=== PATIENT | male | born 1935 | race Caucasian/White ===

== ENCOUNTER 2020-06-14 16:30 | Inpatient (IN) | payer MEDICARE, OTHER, SELFPAY ==
[2020-06-14 16:45] VITALS: BMI 28.3
--- NOTE | 2020-06-14 17:02 | PC.NURSE ---
Patient admitted to skilled swing bed for therapy, oriented to room, pacemaker monitor hooked up and personal cell phone in reach, call light in reach and instructed on how to use, also to not get up alone, alberto titus on
[2020-06-14 17:16] VITALS: BP 174/71; PULSE 64; RESP 18; TEMP 36.4; O2SAT 95
[2020-06-14 17:42] VITALS: BP 174/71; PULSE 64; RESP 18; TEMP 36.4; O2SAT 95; BMI 28.3
[2020-06-14 21:27] LABS: Glucose Point of Care 172 (65-105)
[2020-06-14] MEDS: ATORVASTATIN 40 MG TABLET PO (22:30)
[2020-06-14] MEDS: FINASTERIDE 5 MG TABLET PO (22:30)
[2020-06-14] MEDS: INSULIN GLARGINE (*BKC) 100 UNITS/ML 15 UNITS SUB-Q (22:30)
[2020-06-15] VITALS: BP 153/55; PULSE 59; RESP 20; TEMP 36.6; O2SAT 96
[2020-06-15] MEDS: LEVOTHYROXINE SODIUM 100 MCG TABLET PO (05:56)
[2020-06-15] MEDS: LEVOTHYROXINE SODIUM 75 MCG TABLET PO (05:56)
[2020-06-15 07:47] LABS: Glucose Point of Care 99 (65-105)
[2020-06-15 08:00] VITALS: BP 95/51; PULSE 63; RESP 18; TEMP 36.8; O2SAT 98
--- NOTE | 2020-06-15 08:40 | PC.NURSE ---
First assessment of 06/15: integumentary, respiratory, cardiovascular redone. wrong patient
[2020-06-15] MEDS: APIXABAN 2.5 MG TABLET PO ×2 (08:59→16:48)
[2020-06-15] MEDS: MIDODRINE HCL 2.5 MG TABLET 5 MG PO ×3 (08:59→16:48)
[2020-06-15] MEDS: ASPIRIN 81 MG ENTERIC TABLET PO (08:59)
[2020-06-15] MEDS: CALCIUM CARBONATE (OSCAL) 500 MG TABLET PO (08:59)
[2020-06-15] MEDS: CITALOPRAM HYDROBROMIDE 20 MG TABLET PO (08:59)
--- NOTE | 2020-06-15 09:38 | WPDREHABHP ---
H&P: HPI History of Present Illness Date/Time: 06/15/20 09:38 Cheif Complaint: Physical debility Narrative: Carlos Zhou is a 84 year old male with a PMH of CAD, carotid stenosis, CKD, DMII, previous DVT, HLD, HTN, PUD, sleep apnea w/ cpap that was admitted to swing bed for rehab after a pacemaker placement. 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 Today he is doing well. He reports significant fatigue but no CP, SOB, dizziness, syncope, N/V or GI issues. PSH: CABG, cartotid endarectomy, rotator cuff repair, thyroidectomy, TKA Allergies: Penicillin-rash Review of Systems Constitutional Constitutional: Denies body ache(s), Denies chills and Denies fever(s) Eyes Eyes: Reports no additional eye complaints ENT Reports system reviewed and no additional complaints, except as documented Cardiovascular Cardiovascular: Denies chest pain with activity, Denies irregular heart rhythm, Denies palpitations and Denies dyspnea Respiratory Respiratory: Denies dyspnea Gastrointestinal Gastrointestinal: Reports no additional gastrointestinal complaints Genitourinary Genitourinary: Reports no additional male genitourinary complaints Musculoskeletal Musculoskeletal: Reports no additional musculoskeletal complaints Integumentary/Breasts Skin/Breast: Reports system reviewed and no additional complaints, except as docu Neurologic Reports system reviewed and no additional complaints, except as documented Psychiatric Psychiatric: Reports no additional psychiatric complaints Endocrine Endocrine: Reports no additional endocrine complaints and Denies palpitations Hematologic/Lymphatic Hematologic/Lymphatic: Reports no additional hematologic/lymphatic complaints Allergic/Immunologic Allergic/Immunologic: Reports no additional allergic/immunologic complaints [facility] Social History Social History Smoking status: Former smoker Alcohol intake: never Substance use: never Gender identity (if verbalized by the patient): Male Spiritual care concerns: No Meds Home Medications and Allergies Home Medications Medication Instructions Recorded Confirmed Type apixaban 2.5 mg PO BID 06/14/20 06/14/20 History aspirin [Adult Aspirin EC Low 81 mg PO DAILY 06/14/20 06/14/20 History Strength] atorvastatin 40 mg PO HS 06/14/20 06/14/20 History calcium carbonate [Oyster Shell 500 mg PO DAILY 06/14/20 06/14/20 History Calcium 500] citalopram 20 mg PO DAILY 06/14/20 06/14/20 History finasteride [Proscar] 5 mg PO HS 06/14/20 06/14/20 History insulin glargine [Lantus U-100 15 unit SUBCUT HS 06/14/20 06/14/20 History Insulin] levothyroxine [Levothroid] 175 mcg PO DAILY 06/14/20 06/14/20 History midodrine 5 mg PO TID 06/14/20 06/14/20 History torsemide 10 mg PO DAILY PRN 06/14/20 06/14/20 History Allergies Allergy/AdvReac Type Severity Reaction Status Date / Time Penicillins Allergy Rash Verified 06/14/20 17:04 Vital Signs Vital Signs - 24 hr 06/14/20 17:16 06/14/20 17:42 06/15/20 00:00 Temperature 97.6 F 97.6 F 98 F Pulse Rate 64 64 59 L Respiratory Rate 18 18 20 Blood Pressure 174/71 H 174/71 H 153/55 H Pulse Oximetry 95 95 96 06/15/20 08:00 Temperature 98.2 F Pulse Rate 63 Respiratory Rate 18 Blood Pressure 95/51 L Pulse Oximetry 98 Exam Const General: cooperative, comfortable, no acute distress, well developed, alert, awake and Physically active; No confusion Orientation/consciousness: oriented to person, oriented to place, oriented to time and No confusion HENAR Head: normal to inspection, normocephalic and atraumatic Ears: hearing grossly normal bilaterally and external ears normal General nose exam: Normal external nose present Eyes General: appearance normal, both eyes and all related structures Periorbital: periorbital findings normal Sclera: sclerae normal Pupils: Equal, round and reactive pupils present Resp Effort & Inspec
[2020-06-15 10:33] LABS: Thyroid Stimulating Hormone 1.57 uIU/mL (0.36-3.74)
[2020-06-15 11:28] LABS: Glucose Point of Care 108 (65-105)
--- NOTE | 2020-06-15 14:28 | P.PN_ITS ---
Progress Note: A&P Assessment and Plan (1) Pacemaker: Code(s): Z95.0 - Presence of cardiac pacemaker Status: Acute Assessment and Plan: * Dual-chamber pacemaker * Pacemaker placed due to second-degree AV block and sinus pause * Patient followed by flight paramedic * Patient is to follow-up with her flight paramedic Dr. Otto in 2 weeks after discharge from rehab * Patient has a remote home monitoring check on Monday June 22, 2020 at 8:45 AM * Continue Xarelto 2.5 mg * Placement on * cosyntropin stimulation test results with adequate response at osh (2) Thyroid nodule: Code(s): E04.1 - Nontoxic single thyroid nodule Status: Acute Assessment and Plan: * Continue Synthroid * TSH normal at outside hospital (3) Sleep apnea with use of continuous positive airway pressure (CPAP): Code(s): G47.30 - Sleep apnea, unspecified Status: Acute (4) PVD (peripheral vascular disease): Code(s): I73.9 - Peripheral vascular disease, unspecified Status: Acute (5) HLD (hyperlipidemia): Code(s): E78.5 - Hyperlipidemia, unspecified Status: Acute Assessment and Plan: * Continue atorvastatin 40 mg (6) HTN (hypertension): Code(s): I10 - Essential (primary) hypertension Status: Acute Assessment and Plan: * overall blood pressure reading on the lower side. * Losartan 100 mg and amlodipine 10 mg wawas discontinued at previous hospital * Midodrine 5 mg every 8 hours for 30 days started last given June 14, 2000 (7) CAD (coronary artery disease): Code(s): I25.10 - Atherosclerotic heart disease of [place] coronary artery without angina pectoris Status: Acute Assessment and Plan: * Most recent cardiac testing was January 2019 * Echo indicated normal LVEF. LVEF 55 to 60% * Stress nuclear study demonstrates normal perfusion imaging EF 69% * Recent normal LVEF, 61% now concentric LVH. Dilated right ventricle and normal function * History of CABG back in 2014 (8) Kidney disease: Code(s): N28.9 - Disorder of kidney and ureter, unspecified Status: Acute Assessment and Plan: * Patient last creatinine at outside hospital was 1.58 , BUN 22 GFR 47 * Baseline creatinine 1.7-1.9 * We will renal dose all medication * Labs ordered for the a.m. (9) Diabetes mellitus: Code(s): E11.9 - Type 2 diabetes mellitus without complications Status: Acute Assessment and Plan: * Patient will start a sliding scale also Lantus 15 units mg at bedtime * Blood sugar 103 * Continue Accu-Chek with sliding scale and hypoglycemic protocol * Continue diabetic diet * Will adjust as needed (10) BPH (benign prostatic hyperplasia): Code(s): N40.0 - Benign prostatic hyperplasia without lower urinary tract symptoms Status: Acute Assessment and Plan: * Continue Proscar * Flomax was discontinued at previous hospital (11) Orthostatic hypertension: Code(s): I10 - Essential (primary) hypertension Status: Acute Assessment and Plan: * Patient started on midodrine for 30 days * Continue compression start Review of Systems Review of Systems: All systems reviewed & are unremarkable except as noted in HPI and below (10 point system review) Exam Narrative: Exam Narrative: GENERAL: This is a well-nourished, well-developed patient, in no apparent distress. HEAD: normocephalic, atraumatic. EYES: PERRL. Sclera clear/white. Vision is grossly intact. EARS: External ears no
--- NOTE | 2020-06-15 14:28 | WPDPN ---
Progress Note: A&P Assessment and Plan (1) Pacemaker: Code(s): Z95.0 - Presence of cardiac pacemaker Status: Acute Assessment and Plan: Dual-chamber pacemaker Pacemaker placed due to second-degree AV block and sinus pause Patient followed by hand clerical verifier Patient is to follow-up with her hand clerical verifier Dr. Otto in 2 weeks after discharge from rehab Patient has a remote home monitoring check on Monday June 22, 2020 at 8:45 AM Continue Xarelto 2.5 mg Placement on cosyntropin stimulation test results with adequate response at osh (2) Thyroid nodule: Code(s): E04.1 - Nontoxic single thyroid nodule Status: Acute Assessment and Plan: Continue Synthroid TSH normal at outside hospital (3) Sleep apnea with use of continuous positive airway pressure (CPAP): Code(s): G47.30 - Sleep apnea, unspecified Status: Acute (4) PVD (peripheral vascular disease): Code(s): I73.9 - Peripheral vascular disease, unspecified Status: Acute (5) HLD (hyperlipidemia): Code(s): E78.5 - Hyperlipidemia, unspecified Status: Acute Assessment and Plan: Continue atorvastatin 40 mg (6) HTN (hypertension): Code(s): I10 - Essential (primary) hypertension Status: Acute Assessment and Plan: overall blood pressure reading on the lower side. Losartan 100 mg and amlodipine 10 mg wawas discontinued at previous hospital Midodrine 5 mg every 8 hours for 30 days started last given June 14, 2000 (7) CAD (coronary artery disease): Code(s): I25.10 - Atherosclerotic heart disease of [place] coronary artery without angina pectoris Status: Acute Assessment and Plan: Most recent cardiac testing was January 2019 Echo indicated normal LVEF. LVEF 55 to 60% Stress nuclear study demonstrates normal perfusion imaging EF 69% Recent normal LVEF, 61% now concentric LVH. Dilated right ventricle and normal function History of CABG back in 2014 (8) Kidney disease: Code(s): N28.9 - Disorder of kidney and ureter, unspecified Status: Acute Assessment and Plan: Patient last creatinine at outside hospital was 1.58 , BUN 22 GFR 47 Baseline creatinine 1.7-1.9 We will renal dose all medication Labs ordered for the a.m. (9) Diabetes mellitus: Code(s): E11.9 - Type 2 diabetes mellitus without complications Status: Acute Assessment and Plan: Patient will start a sliding scale also Lantus 15 units mg at bedtime Blood sugar 103 Continue Accu-Chek with sliding scale and hypoglycemic protocol Continue diabetic diet Will adjust as needed (10) BPH (benign prostatic hyperplasia): Code(s): N40.0 - Benign prostatic hyperplasia without lower urinary tract symptoms Status: Acute Assessment and Plan: Continue Proscar Flomax was discontinued at previous hospital (11) Orthostatic hypertension: Code(s): I10 - Essential (primary) hypertension Status: Acute Assessment and Plan: Patient started on midodrine for 30 days Continue compression start Review of Systems Review of Systems: All systems reviewed & are unremarkable except as noted in HPI and below (10 point system review) Exam Narrative: Exam Narrative: GENERAL: This is a well-nourished, well-developed patient, in no apparent distress. HEAD: normocephalic, atraumatic. EYES: PERRL. Sclera clear/white. Vision is grossly intact. EARS: External ears normal, auditory canals clear and without drainage, TMs normal without perforation. Hearing grossly intact. NOSE: External nose normal with no obvious nasal discharge, nares without redness, no rhinorrhea. THROAT: Mucous membranes moist, posterior pharynx clear. NECK: Neck supple, non-tender without lymphadenopathy, masses or thyromegaly. CARDIOVASCULAR: Paced rate and rhythm without murmurs, gallops, or rubs. RESPIRATORY: Clear to auscultation. Breath sounds equal
[2020-06-15 16:00] VITALS: BP 123/64; PULSE 66; RESP 16; TEMP 36.1; O2SAT 98
[2020-06-15 17:01] LABS: Glucose Point of Care 111 (65-105)
[2020-06-15] MEDS: INSULIN GLARGINE (*BKC) 100 UNITS/ML 15 UNITS SUB-Q (20:55)
[2020-06-15] MEDS: ATORVASTATIN 40 MG TABLET PO (20:56)
[2020-06-15] MEDS: FINASTERIDE 5 MG TABLET PO (20:56)
[2020-06-15 21:00] LABS: Glucose Point of Care 140 (65-105)
[2020-06-16] VITALS: BP 108/43; PULSE 62; RESP 18; TEMP 37.2
[2020-06-16 05:25] LABS: Hematocrit 35.2 % (37.0-46.0); Mean Corpuscular HGB Conc 31.3 g/dL (32.0-36.0); Mean Corpuscular Hemoglobin 30.9 pg (27.0-31.0); Mean Corpuscular Volume 98.9 fL (78.0-102.0); Mean Platelet Volume 10.8 fl (8.7-11.0); Platelet Count Result 196 K/mm3 (150-420); Red Blood Count 3.56 M/mm3 (4.70-6.10); White Blood Count 8.3 K/mm3 (4.8-10.8)
[2020-06-16 05:42] LABS: INR 1.1
[2020-06-16 05:47] LABS: Alanine Aminotransferase 67 U/L (16-63); Albumin Level 2.9 g/dL (3.4-5.0); Alkaline Phosphatase 87 U/L (46-116); Anion Gap 6 mmol/L (8-16); Aspartate Amino Transferase 38 U/L (15-37); Bilirubin,Total 0.7 mg/dL (0.00-1.00); Blood Urea Nitrogen 31 mg/dL (7-18); Calcium 8.6 mg/dL (8.5-10.1); Carbon Dioxide 28 mmol/L (21-32); Chloride 107 mmol/L (98-108); Estimated CRCL calculation 31 ml/min; Estimated Glomerular Filt Rate 39; Glucose 89 mg/dL (70-99); Magnesium 2.1 mg/dL (1.8-2.4); Osmolality Calculated 297 mOsm/kg (285-295); Potassium 4.2 mmol/L (3.5-5.1); Sodium 141 mmol/L (136-145); Total Protein 5.9 g/dL (6.4-8.2)
[2020-06-16] MEDS: LEVOTHYROXINE SODIUM 75 MCG TABLET PO (05:55)
[2020-06-16] MEDS: LEVOTHYROXINE SODIUM 100 MCG TABLET PO (05:55)
[2020-06-16 08:00] VITALS: BP 64/38; BP 86/48; PULSE 78; RESP 16; TEMP 36.9; O2SAT 95
[2020-06-16 08:09] LABS: Glucose Point of Care 100 (65-105)
[2020-06-16] MEDS: CALCIUM CARBONATE (OSCAL) 500 MG TABLET PO (08:17)
[2020-06-16] MEDS: ASPIRIN 81 MG ENTERIC TABLET PO (08:17)
[2020-06-16] MEDS: APIXABAN 2.5 MG TABLET PO ×2 (08:17→16:54)
[2020-06-16] MEDS: MIDODRINE HCL 2.5 MG TABLET 5 MG PO ×3 (08:17→16:53)
[2020-06-16] MEDS: CITALOPRAM HYDROBROMIDE 20 MG TABLET PO (08:17)
--- NOTE | 2020-06-16 10:43 | PM.EVENT ---
Event Note Event Note Event Note: Updated patient's daughter Destiney today. Patient daughter was concerned about patient's blood pressure while standing. I informed her that we will continue to monitor patient's orthostatics and adjust medication as needed.
[2020-06-16 11:31] LABS: Glucose Point of Care 108 (65-105)
[2020-06-16 15:44] VITALS: BP 134/56; PULSE 64; RESP 18; TEMP 36.6; O2SAT 98
[2020-06-16 16:47] LABS: Glucose Point of Care 125 (65-105)
[2020-06-16 20:00] VITALS: BP 147/61; PULSE 66; RESP 16; TEMP 36.8; O2SAT 96
[2020-06-16] MEDS: INSULIN GLARGINE (*BKC) 100 UNITS/ML 15 UNITS SUB-Q (21:00)
[2020-06-16] MEDS: ATORVASTATIN 40 MG TABLET PO (21:08)
[2020-06-16] MEDS: FINASTERIDE 5 MG TABLET PO (21:08)
[2020-06-16 21:17] LABS: Glucose Point of Care 142 (65-105)
--- NOTE | 2020-06-16 22:09 | PC.NURSE ---
Patient lying in bed watching TV. Able to take medications without difficulty. No signs of resp distress. SR up x2. Call light and belongings within reach.
[2020-06-17] VITALS: BP 147/61; PULSE 66; RESP 16; TEMP 36.8; O2SAT 96
--- NOTE | 2020-06-17 00:33 | PC.NURSE ---
Patient resting quietly. No c/o offered. Call light and belongings within reach.
--- NOTE | 2020-06-17 02:22 | PC.NURSE ---
Patient resting quietly. SR up x2. Call light and belongings within reach. Patient had used the urinal, clear yellow urine.
--- NOTE | 2020-06-17 05:21 | PC.NURSE ---
sat up at bedside to use urinal, tolerated well, denies needs, side rails up and call light in reach
[2020-06-17] MEDS: LEVOTHYROXINE SODIUM 100 MCG TABLET PO (05:32)
[2020-06-17] MEDS: LEVOTHYROXINE SODIUM 75 MCG TABLET PO (05:32)
[2020-06-17 07:25] LABS: Glucose Point of Care 96 (65-105)
[2020-06-17 07:30] VITALS: BP 140/66; PULSE 66
[2020-06-17 07:32] VITALS: BP 100/61; PULSE 63
[2020-06-17 07:33] VITALS: BP 79/38; PULSE 70
--- NOTE | 2020-06-17 07:39 | PC.NURSE ---
Orthostatic vitals completed, no dizzyness with position change, denies needs, call light in reach
[2020-06-17 07:40] VITALS: BP 140/66; PULSE 66; RESP 18; TEMP 36.6; O2SAT 95
[2020-06-17] MEDS: MIDODRINE HCL 2.5 MG TABLET 5 MG PO ×3 (08:26→17:47)
[2020-06-17] MEDS: CALCIUM CARBONATE (OSCAL) 500 MG TABLET PO (08:26)
[2020-06-17] MEDS: CITALOPRAM HYDROBROMIDE 20 MG TABLET PO (08:26)
[2020-06-17] MEDS: APIXABAN 2.5 MG TABLET PO ×2 (08:27→17:47)
[2020-06-17] MEDS: ASPIRIN 81 MG ENTERIC TABLET PO (08:27)
[2020-06-17 11:26] LABS: Glucose Point of Care 115 (65-105)
--- NOTE | 2020-06-17 11:26 | PC.NURSE ---
Up in chair, ready for lunch, walked in [place] with PT, tolerated well, states feeling a little tired from the walk
--- NOTE | 2020-06-17 13:15 | PM.EVENT ---
Event Note Event Note Event Note: Review patient's vital signs. While lying down patient while lying down patient was 140/66 standing 79/38. Did not midodrine. Patient was asymptomatic while standing and will noted increased midodrine to prevent hypertension
[2020-06-17 17:45] LABS: Glucose Point of Care 179 (65-105)
[2020-06-17] MEDS: ATORVASTATIN 40 MG TABLET PO (21:18)
[2020-06-17] MEDS: FINASTERIDE 5 MG TABLET PO (21:18)
[2020-06-17] MEDS: INSULIN GLARGINE (*BKC) 100 UNITS/ML 15 UNITS SUB-Q (21:22)
[2020-06-17 21:44] LABS: Glucose Point of Care 146 (65-105)
[2020-06-18] VITALS: BP 147/64; PULSE 66; RESP 20; TEMP 36.9; O2SAT 96
--- NOTE | 2020-06-18 02:06 | PC.NURSE ---
Pt asleep and no signs of discomfort noted.
--- NOTE | 2020-06-18 06:35 | PC.NURSE ---
Pt given levothyroxine 175 mcg PO as ordered.
[2020-06-18] MEDS: LEVOTHYROXINE SODIUM 75 MCG TABLET PO (06:37)
[2020-06-18] MEDS: LEVOTHYROXINE SODIUM 100 MCG TABLET PO (06:37)
[2020-06-18 07:30] VITALS: BP 157/69; PULSE 70; RESP 18; TEMP 36.8; O2SAT 97
[2020-06-18 07:33] LABS: Glucose Point of Care 103 (65-105)
[2020-06-18] MEDS: ASPIRIN 81 MG ENTERIC TABLET PO (09:38)
[2020-06-18] MEDS: APIXABAN 2.5 MG TABLET PO ×2 (09:39→17:07)
[2020-06-18] MEDS: MIDODRINE HCL 2.5 MG TABLET 5 MG PO ×3 (09:39→17:07)
[2020-06-18] MEDS: CALCIUM CARBONATE (OSCAL) 500 MG TABLET PO (09:39)
[2020-06-18] MEDS: CITALOPRAM HYDROBROMIDE 20 MG TABLET PO (09:39)
[2020-06-18 12:21] LABS: Glucose Point of Care 125 (65-105)
[2020-06-18 15:30] VITALS: BP 179/66; PULSE 60; RESP 18; TEMP 37.3; O2SAT 97
[2020-06-18 15:33] VITALS: BP 168/67; PULSE 66
[2020-06-18 15:35] VITALS: BP 132/50; PULSE 72
[2020-06-18 17:11] LABS: Glucose Point of Care 130 (65-105)
[2020-06-18] MEDS: INSULIN GLARGINE (*BKC) 100 UNITS/ML 15 UNITS SUB-Q (20:39)
[2020-06-18] MEDS: ATORVASTATIN 40 MG TABLET PO (20:39)
[2020-06-18] MEDS: FINASTERIDE 5 MG TABLET PO (20:39)
[2020-06-18 20:48] LABS: Glucose Point of Care 128 (65-105)
[2020-06-18 23:51] VITALS: BP 156/66; PULSE 60; RESP 18; TEMP 36.9; O2SAT 96
--- NOTE | 2020-06-19 01:49 | PC.NURSE ---
pt sleeping, respirations even and regular, no evidence of distress noted
[2020-06-19] MEDS: LEVOTHYROXINE SODIUM 75 MCG TABLET PO (05:42)
[2020-06-19] MEDS: LEVOTHYROXINE SODIUM 100 MCG TABLET PO (05:42)
[2020-06-19 08:00] VITALS: BP 160/66; PULSE 62; RESP 18; TEMP 36.8; O2SAT 98
[2020-06-19 08:00] LABS: Glucose Point of Care 88 (65-105)
[2020-06-19] MEDS: MIDODRINE HCL 2.5 MG TABLET 5 MG PO ×3 (08:39→16:48)
[2020-06-19] MEDS: CALCIUM CARBONATE (OSCAL) 500 MG TABLET PO (08:40)
[2020-06-19] MEDS: APIXABAN 2.5 MG TABLET PO ×2 (08:40→16:49)
[2020-06-19] MEDS: CITALOPRAM HYDROBROMIDE 20 MG TABLET PO (08:40)
[2020-06-19] MEDS: ASPIRIN 81 MG ENTERIC TABLET PO (08:40)
[2020-06-19 10:30] VITALS: BP 171/67
[2020-06-19 10:31] VITALS: BP 125/64
[2020-06-19 10:32] VITALS: BP 125/44
[2020-06-19 11:50] LABS: Glucose Point of Care 124 (65-105)
--- NOTE | 2020-06-19 14:00 | PC.NURSE ---
Patient sitting up in bed watching football. Water pitcher refilled. No complaints at this time. Call light and needed items within reach.
--- NOTE | 2020-06-19 15:12 | WPDPN ---
Progress Note: A&P Assessment and Plan (1) Pacemaker: Code(s): Z95.0 - Presence of cardiac pacemaker Status: Acute Assessment and Plan: Dual-chamber pacemaker Pacemaker placed due to second-degree AV block and sinus pause Patient followed by digital design engineer Patient is to follow-up with her digital design engineer Dr. Otto in 2 weeks after discharge from rehab Patient has a remote home monitoring check on Monday June 22, 2020 at 8:45 AM Continue Xarelto 2.5 mg Placement on cosyntropin stimulation test results with adequate response at osh (2) Thyroid nodule: Code(s): E04.1 - Nontoxic single thyroid nodule Status: Acute Assessment and Plan: Continue Synthroid TSH normal at outside hospital (3) Sleep apnea with use of continuous positive airway pressure (CPAP): Code(s): G47.30 - Sleep apnea, unspecified Status: Acute (4) PVD (peripheral vascular disease): Code(s): I73.9 - Peripheral vascular disease, unspecified Status: Acute (5) HLD (hyperlipidemia): Code(s): E78.5 - Hyperlipidemia, unspecified Status: Acute Assessment and Plan: Continue atorvastatin 40 mg (6) HTN (hypertension): Code(s): I10 - Essential (primary) hypertension Status: Acute Assessment and Plan: overall blood pressure reading on the lower side. Losartan 100 mg and amlodipine 10 mg wawas discontinued at previous hospital Midodrine 5 mg every 8 hours for 30 days started last given June 14, 2000 (7) CAD (coronary artery disease): Code(s): I25.10 - Atherosclerotic heart disease of [place] coronary artery without angina pectoris Status: Acute Assessment and Plan: Most recent cardiac testing was January 2019 Echo indicated normal LVEF. LVEF 55 to 60% Stress nuclear study demonstrates normal perfusion imaging EF 69% Recent normal LVEF, 61% now concentric LVH. Dilated right ventricle and normal function History of CABG back in 2014 (8) Kidney disease: Code(s): N28.9 - Disorder of kidney and ureter, unspecified Status: Acute Assessment and Plan: Patient last creatinine at outside hospital was 1.58 , BUN 22 GFR 47 Baseline creatinine 1.7-1.9 We will renal dose all medication Labs ordered for the a.m. (9) Diabetes mellitus: Code(s): E11.9 - Type 2 diabetes mellitus without complications Status: Acute Assessment and Plan: Patient will start a sliding scale also Lantus 15 units mg at bedtime Blood sugar 103 Continue Accu-Chek with sliding scale and hypoglycemic protocol Continue diabetic diet Will adjust as needed (10) BPH (benign prostatic hyperplasia): Code(s): N40.0 - Benign prostatic hyperplasia without lower urinary tract symptoms Status: Acute Assessment and Plan: Continue Proscar Flomax was discontinued at previous hospital (11) Orthostatic hypertension: Code(s): I10 - Essential (primary) hypertension Status: Acute Assessment and Plan: Patient started on midodrine for 30 days Continue compression start Improved Review of Systems Review of Systems: All systems reviewed & are unremarkable except as noted in HPI and below (10 point system review) Exam Narrative: Exam Narrative: GENERAL: This is a well-nourished, well-developed patient, in no apparent distress. HEAD: normocephalic, atraumatic. EYES: PERRL. Sclera clear/white. Vision is grossly intact. EARS: External ears normal, auditory canals clear and without drainage, TMs normal without perforation. Hearing grossly intact. NOSE: External nose normal with no obvious nasal discharge, nares without redness, no rhinorrhea. THROAT: Mucous membranes moist, posterior pharynx clear. NECK: Neck supple, non-tender without lymphadenopathy, masses or thyromegaly. CARDIOVASCULAR: Paced rate and rhythm without murmurs, gallops, or rubs. RESPIRATORY: Clear to auscultation. Breath s
--- NOTE | 2020-06-19 15:12 | P.PN_ITS ---
Progress Note: A&P Assessment and Plan (1) Pacemaker: Code(s): Z95.0 - Presence of cardiac pacemaker Status: Acute Assessment and Plan: * Dual-chamber pacemaker * Pacemaker placed due to second-degree AV block and sinus pause * Patient followed by engineering drafter * Patient is to follow-up with her engineering drafter Dr. Otto in 2 weeks after discharge from rehab * Patient has a remote home monitoring check on Monday June 22, 2020 at 8:45 AM * Continue Xarelto 2.5 mg * Placement on * cosyntropin stimulation test results with adequate response at osh (2) Thyroid nodule: Code(s): E04.1 - Nontoxic single thyroid nodule Status: Acute Assessment and Plan: * Continue Synthroid * TSH normal at outside hospital (3) Sleep apnea with use of continuous positive airway pressure (CPAP): Code(s): G47.30 - Sleep apnea, unspecified Status: Acute (4) PVD (peripheral vascular disease): Code(s): I73.9 - Peripheral vascular disease, unspecified Status: Acute (5) HLD (hyperlipidemia): Code(s): E78.5 - Hyperlipidemia, unspecified Status: Acute Assessment and Plan: * Continue atorvastatin 40 mg (6) HTN (hypertension): Code(s): I10 - Essential (primary) hypertension Status: Acute Assessment and Plan: * overall blood pressure reading on the lower side. * Losartan 100 mg and amlodipine 10 mg wawas discontinued at previous hospital * Midodrine 5 mg every 8 hours for 30 days started last given June 14, 2000 (7) CAD (coronary artery disease): Code(s): I25.10 - Atherosclerotic heart disease of [place] coronary artery without angina pectoris Status: Acute Assessment and Plan: * Most recent cardiac testing was January 2019 * Echo indicated normal LVEF. LVEF 55 to 60% * Stress nuclear study demonstrates normal perfusion imaging EF 69% * Recent normal LVEF, 61% now concentric LVH. Dilated right ventricle and normal function * History of CABG back in 2014 (8) Kidney disease: Code(s): N28.9 - Disorder of kidney and ureter, unspecified Status: Acute Assessment and Plan: * Patient last creatinine at outside hospital was 1.58 , BUN 22 GFR 47 * Baseline creatinine 1.7-1.9 * We will renal dose all medication * Labs ordered for the a.m. (9) Diabetes mellitus: Code(s): E11.9 - Type 2 diabetes mellitus without complications Status: Acute Assessment and Plan: * Patient will start a sliding scale also Lantus 15 units mg at bedtime * Blood sugar 103 * Continue Accu-Chek with sliding scale and hypoglycemic protocol * Continue diabetic diet * Will adjust as needed (10) BPH (benign prostatic hyperplasia): Code(s): N40.0 - Benign prostatic hyperplasia without lower urinary tract symptoms Status: Acute Assessment and Plan: * Continue Proscar * Flomax was discontinued at previous hospital (11) Orthostatic hypertension: Code(s): I10 - Essential (primary) hypertension Status: Acute Assessment and Plan: * Patient started on midodrine for 30 days * Continue compression start * Improved Review of Systems Review of Systems: All systems reviewed & are unremarkable except as noted in HPI and below (10 point system review) Exam Narrative: Exam Narrative: GENERAL: This is a well-nourished, well-developed patient, in no apparent distress. HEAD: normocephalic, atraumatic. EYES: PERRL. Sclera clear/white. Vision is grossly intact. EARS:
[2020-06-19 16:00] VITALS: BP 137/72; PULSE 72; RESP 14; TEMP 36.3; O2SAT 95
[2020-06-19 16:56] LABS: Glucose Point of Care 117 (65-105)
--- NOTE | 2020-06-19 18:49 | PC.NURSE ---
Patient sitting on side of bed watching football. Denies weakness, dizziness, pain. No s/s of hypo/hyperglycemia. SR up x2. Call light and belongings within reach.
[2020-06-19 20:00] VITALS: BP 137/72; PULSE 72; RESP 16; TEMP 36.3; O2SAT 94
[2020-06-19] MEDS: FINASTERIDE 5 MG TABLET PO (20:51)
[2020-06-19] MEDS: ATORVASTATIN 40 MG TABLET PO (20:51)
[2020-06-19 20:56] LABS: Glucose Point of Care 117 (65-105)
[2020-06-19] MEDS: INSULIN GLARGINE (*BKC) 100 UNITS/ML 15 UNITS SUB-Q (21:00)
--- NOTE | 2020-06-19 22:16 | PC.NURSE ---
Patient alert and oriented. Uses walker. Able to use urinal. SR up x2. Call light and belongings within reach.
[2020-06-20] VITALS: BP 186/70; PULSE 70; RESP 20; TEMP 36.8; O2SAT 96
--- NOTE | 2020-06-20 00:03 | PC.NURSE ---
Pt resting per bed. Has no complaints. Steri strips in place on upper left chest from pacemaker placement. Call [place] in reach. Reminded to call with needs.
--- NOTE | 2020-06-20 02:03 | PC.NURSE ---
Pt sleeping, appears comfortable. No distress noted.
[2020-06-20 05:46] LABS: Hematocrit 34.7 % (37.0-46.0); Mean Corpuscular HGB Conc 31.7 g/dL (32.0-36.0); Mean Corpuscular Hemoglobin 31.4 pg (27.0-31.0); Mean Corpuscular Volume 99.1 fL (78.0-102.0); Mean Platelet Volume 10.9 fl (8.7-11.0); Platelet Count Result 207 K/mm3 (150-420); Red Cell Distribution Width 13.2 % (11.6-14.4); White Blood Count 7.8 K/mm3 (4.8-10.8)
[2020-06-20 06:08] LABS: Alanine Aminotransferase 87 U/L (16-63); Albumin Level 2.8 g/dL (3.4-5.0); Alkaline Phosphatase 103 U/L (46-116); Anion Gap 7 mmol/L (8-16); Aspartate Amino Transferase 44 U/L (15-37); Bilirubin,Total 0.5 mg/dL (0.00-1.00); Blood Urea Nitrogen 23 mg/dL (7-18); Calcium 8.7 mg/dL (8.5-10.1); Carbon Dioxide 27 mmol/L (21-32); Chloride 108 mmol/L (98-108); Estimated CRCL calculation 40 ml/min; Estimated Glomerular Filt Rate 51; Glucose 93 mg/dL (70-99); Osmolality Calculated 297 mOsm/kg (285-295); Potassium 3.8 mmol/L (3.5-5.1); Sodium 142 mmol/L (136-145); Total Protein 6.1 g/dL (6.4-8.2)
[2020-06-20] MEDS: LEVOTHYROXINE SODIUM 75 MCG TABLET PO (06:08)
[2020-06-20] MEDS: LEVOTHYROXINE SODIUM 100 MCG TABLET PO (06:08)
[2020-06-20 07:49] LABS: Glucose Point of Care 85 (65-105)
[2020-06-20 08:00] VITALS: BP 150/88; PULSE 64; RESP 18; TEMP 36.9; O2SAT 96
[2020-06-20] MEDS: CITALOPRAM HYDROBROMIDE 20 MG TABLET PO (08:13)
[2020-06-20] MEDS: CALCIUM CARBONATE (OSCAL) 500 MG TABLET PO (08:13)
[2020-06-20] MEDS: APIXABAN 2.5 MG TABLET PO ×2 (08:14→16:42)
[2020-06-20] MEDS: ASPIRIN 81 MG ENTERIC TABLET PO (08:14)
[2020-06-20] MEDS: MIDODRINE HCL 2.5 MG TABLET 5 MG PO ×3 (08:14→16:41)
[2020-06-20 12:15] LABS: Glucose Point of Care 105 (65-105)
[2020-06-20 16:00] VITALS: BP 148/69; PULSE 63; RESP 16; TEMP 37.1; O2SAT 99
[2020-06-20 16:14] LABS: Glucose Point of Care 102 (65-105)
[2020-06-20] MEDS: ATORVASTATIN 40 MG TABLET PO (21:03)
[2020-06-20] MEDS: INSULIN GLARGINE (*BKC) 100 UNITS/ML 15 UNITS SUB-Q (21:03)
[2020-06-20] MEDS: FINASTERIDE 5 MG TABLET PO (21:03)
[2020-06-20 21:38] LABS: Glucose Point of Care 135 (65-105)
[2020-06-20 23:46] VITALS: BP 165/66; PULSE 62; RESP 16; TEMP 36.5; O2SAT 96
[2020-06-21] MEDS: LEVOTHYROXINE SODIUM 75 MCG TABLET PO (05:55)
[2020-06-21] MEDS: LEVOTHYROXINE SODIUM 100 MCG TABLET PO (05:55)
[2020-06-21 07:22] LABS: Glucose Point of Care 91 (65-105)
[2020-06-21 07:54] VITALS: BP 146/76; PULSE 71; RESP 18; TEMP 36.7; O2SAT 96
[2020-06-21 08:00] VITALS: BP 161/69; PULSE 62
[2020-06-21 08:07] VITALS: BP 145/62; BP 92/46; PULSE 67; PULSE 68
[2020-06-21] MEDS: CITALOPRAM HYDROBROMIDE 20 MG TABLET PO (09:24)
[2020-06-21] MEDS: APIXABAN 2.5 MG TABLET PO (09:24)
[2020-06-21] MEDS: ASPIRIN 81 MG ENTERIC TABLET PO (09:24)
[2020-06-21] MEDS: CALCIUM CARBONATE (OSCAL) 500 MG TABLET PO (09:24)
[2020-06-21] MEDS: MIDODRINE HCL 2.5 MG TABLET 5 MG PO ×2 (09:24→12:15)
[2020-06-21 11:29] LABS: Glucose Point of Care 114 (65-105)
--- NOTE | 2020-06-21 12:12 | P.DS_ITS ---
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 Otto in 2 weeks after discharge from rehab * Patient has a remote home monitoring check on Monday June 22, 2020 at 8:45 AM * Continue Xarelto 2.5 mg <Lam EspinalAndrea Oconnell COMPARATIVE SOCIOLOGY PROFESSOR-C - Last Filed: 06/21/20 13:13> (2) Thyroid nodule: Code(s): E04.1 - Nontoxic single thyroid nodule <Lam EspinalAndrea Treybenson, COMPARATIVE SOCIOLOGY PROFESSOR-C - Last Filed: 06/21/20 13:13> Status: Acute <Lam EspinalAndrea Kourtney COMPARATIVE SOCIOLOGY PROFESSOR-C - Last Filed: 06/21/20 13:13> Assessment and Plan: * Continue Synthroid <Lam EspinalAndrea Treybenson COMPARATIVE SOCIOLOGY PROFESSOR-C - Last Filed: 06/21/20 13:13> (3) Sleep apnea with use of continuous positive airway pressure (CPAP): Code(s): G47.30 - Sleep apnea, unspecified <Lam EspinalAndrea Treybenson COMPARATIVE SOCIOLOGY PROFESSOR-C - Last Filed: 06/21/20 13:13> Status: Acute <Lam KylieAndrea Kourtney COMPARATIVE SOCIOLOGY PROFESSOR-C - Last Filed: 06/21/20 13:13> Assessment and Plan: patient has CPAP at home and states that he uses it regularly <Lam EspinalAndrea Oconnell COMPARATIVE SOCIOLOGY PROFESSOR-C - Last Filed: 06/21/20 13:13> (4) PVD (peripheral vascular disease): Code(s): I73.9 - Peripheral vascular disease, unspecified <Lam Oconnell, COMPARATIVE SOCIOLOGY PROFESSOR-C - Last Filed: 06/21/20 13:13> Status: Acute <Lam Oconnell COMPARATIVE SOCIOLOGY PROFESSOR-C - Last Filed: 06/21/20 13:13> Assessment and Plan: Diallo titus ordered for patient and patient is to follow-up with his sole layer <Lam Oconnell COMPARATIVE SOCIOLOGY PROFESSOR-C - Last Filed: 06/21/20 13:13> (5) HLD (hyperlipidemia): Code(s): E78.5 - Hyperlipidemia, unspecified <Lam Oconnell COMPARATIVE SOCIOLOGY PROFESSOR-C - Last Filed: 06/21/20 13:13> Status: Acute <Lam Oconnell COMPARATIVE SOCIOLOGY PROFESSOR-C - Last Filed: 06/21/20 13:13> Assessment and Plan: * Continue atorvastatin 40 mg <Lam Oconnell COMPARATIVE SOCIOLOGY PROFESSOR-C - Last Filed: 06/21/20 13:13> (6) HTN (hypertension): Code(s): I10 - Essential (primary) hypertension <Lam Oconnell COMPARATIVE SOCIOLOGY PROFESSOR-C - Last Filed: 06/21/20 13:13> Status: Acute <Lam Oconnell COMPARATIVE SOCIOLOGY PROFESSOR-C - Last Filed: 06/21/20 13:13> Assessment and Plan: * patient does have blood pressure that is soft upon standing however he is asymptomatic, will not continue any blood pressure medication at this time however patient's daughter states he does take an as-needed water pill, will continue midodrine on discharge <Lam Oconnell COMPARATIVE SOCIOLOGY PROFESSOR-C - Last Filed: 06/21/20 13:13> (7) CAD (coronary artery disease): Code(s): I25.10 - Atherosclerotic heart disease of [place] coronary artery without angina pectoris <Lam Oconnell, COMPARATIVE SOCIOLOGY PROFESSOR-C - Last Filed: 06/21/20 13:13> Status: Acute <aLm Oconnell COMPARATIVE SOCIOLOGY PROFESSOR-C - Last Filed: 06/21/20 13:13> Assessment and Plan: patient has had a history of CABG x2, taking atorvastatin, patient to follow-up with sole layer <Lam Oconnell COMPARATIVE SOCIOLOGY PROFESSOR-C - Last Filed: 06/21/20 13:13> (8) Kidney disease: Code(s): N28.9 - Disorder of kidney and ureter, unspecified <Lam Oconnell APN-C - Last Filed: 06/21/20 13:13> Status:
--- NOTE | 2020-06-21 12:12 | PM.DS ---
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 Otto in 2 weeks after discharge from rehab Patient has a remote home monitoring check on Monday June 22, 2020 at 8:45 AM Continue Xarelto 2.5 mg <Lam EspinalAndrea Oconnell SANFORIZING MACHINE OPERATOR-C - Last Filed: 06/21/20 13:13> (2) Thyroid nodule: Code(s): E04.1 - Nontoxic single thyroid nodule <Lam EspinalAndrea Oconnell, SANFORIZING MACHINE OPERATOR-C - Last Filed: 06/21/20 13:13> Status: Acute <Lam KylieAndrea Treybenson SANFORIZING MACHINE OPERATOR-C - Last Filed: 06/21/20 13:13> Assessment and Plan: Continue Synthroid <Lam EspinalAndrea Treybenson SANFORIZING MACHINE OPERATOR-C - Last Filed: 06/21/20 13:13> (3) Sleep apnea with use of continuous positive airway pressure (CPAP): Code(s): G47.30 - Sleep apnea, unspecified <Lam EspinalAndrea Treybenson SANFORIZING MACHINE OPERATOR-C - Last Filed: 06/21/20 13:13> Status: Acute <Lam KylieAndrea Oconnell, SANFORIZING MACHINE OPERATOR-C - Last Filed: 06/21/20 13:13> Assessment and Plan: patient has CPAP at home and states that he uses it regularly <Lam EspinalAndrea Oconnell SANFORIZING MACHINE OPERATOR-C - Last Filed: 06/21/20 13:13> (4) PVD (peripheral vascular disease): Code(s): I73.9 - Peripheral vascular disease, unspecified <Lam KylieAndrea Oconnell SANFORIZING MACHINE OPERATOR-C - Last Filed: 06/21/20 13:13> Status: Acute <Lam Oconnell SANFORIZING MACHINE OPERATOR-C - Last Filed: 06/21/20 13:13> Assessment and Plan: Diallo titus ordered for patient and patient is to follow-up with his precision thread grinder operator <Lam Oconnell SANFORIZING MACHINE OPERATOR-C - Last Filed: 06/21/20 13:13> (5) HLD (hyperlipidemia): Code(s): E78.5 - Hyperlipidemia, unspecified <Lam Oconnell SANFORIZING MACHINE OPERATOR-C - Last Filed: 06/21/20 13:13> Status: Acute <Lam Oconnell SANFORIZING MACHINE OPERATOR-C - Last Filed: 06/21/20 13:13> Assessment and Plan: Continue atorvastatin 40 mg <Lam Oconnell SANFORIZING MACHINE OPERATOR-C - Last Filed: 06/21/20 13:13> (6) HTN (hypertension): Code(s): I10 - Essential (primary) hypertension <Lam Oconnell SANFORIZING MACHINE OPERATOR-C - Last Filed: 06/21/20 13:13> Status: Acute <Lam Oconnell SANFORIZING MACHINE OPERATOR-C - Last Filed: 06/21/20 13:13> Assessment and Plan: patient does have blood pressure that is soft upon standing however he is asymptomatic, will not continue any blood pressure medication at this time however patient's daughter states he does take an as-needed water pill, will continue midodrine on discharge <Lam Oconnell SANFORIZING MACHINE OPERATOR-C - Last Filed: 06/21/20 13:13> (7) CAD (coronary artery disease): Code(s): I25.10 - Atherosclerotic heart disease of [place] coronary artery without angina pectoris <Lam Oconnell SANFORIZING MACHINE OPERATOR-C - Last Filed: 06/21/20 13:13> Status: Acute <Lam Oconnell SANFORIZING MACHINE OPERATOR-C - Last Filed: 06/21/20 13:13> Assessment and Plan: patient has had a history of CABG x2, taking atorvastatin, patient to follow-up with precision thread grinder operator <Lam Oconnell, SANFORIZING MACHINE OPERATOR-C - Last Filed: 06/21/20 13:13> (8) Kidney disease: Code(s): N28.9 - Disorder of kidney and ureter, unspecified <DIANE Kessler - Last Filed: 06/21/20 13:13> Status: Acute <DIANE Kessler - Last Filed: 06/21/20 13:13> Assessment and Plan: renal function stable BUN 23 creatinine 1.33, avoided nephrotoxic medication <DIANE Kessler - Last Filed: 06/21/20 13:13> (9) Diabetes mellitus: Code(s): E11.9 - Type 2 diabetes mellitus without complications <Lam Oconnell
--- NOTE | 2020-07-05 14:59 | PC.NURSE ---
Unable to contact for discharge call back.
== END 2020-06-21 14:20 | disposition home or self-care (01) | DRG 310 ==
PROVIDERS: Family Medicine; Nurse Practitioner; Admitting Provider Emergency Medicine; PCP Family Medicine; Visit Provider Emergency Medicine
DX: I44.1 Atrioventricular block, second degree (principal); R53.83 Other fatigue; I95.1 Orthostatic hypotension; I65.29 Occlusion and stenosis of unspecified carotid artery; I12.9 Hypertensive chronic kidney disease with stage 1 through stage 4 chronic kidney disease, or unspecified chronic kidney disease; E11.22 Type 2 diabetes mellitus with diabetic chronic kidney disease; N18.9 Chronic kidney disease, unspecified; I25.10 Atherosclerotic heart disease of native coronary artery without angina pectoris; E78.5 Hyperlipidemia, unspecified; N40.0 Benign prostatic hyperplasia without lower urinary tract symptoms; G47.30 Sleep apnea, unspecified; Z96.659 Presence of unspecified artificial knee joint; Z86.718 Personal history of other venous thrombosis and embolism; Z79.01 Long term (current) use of anticoagulants; Z95.0 Presence of cardiac pacemaker; Z95.1 Presence of aortocoronary bypass graft
CPT/HCPCS: 36415; 80053; 83735; 84443; 85027; 85610; 97110; 97161; 97165; 97530; 97535; A9270; J1815

== ENCOUNTER 2020-08-16 09:34 | Outpatient (CLI) | payer MEDICARE, OTHER, SELFPAY ==
--- NOTE | ~2020-08-16 | CT_ITS ---
EXAMINATION: CT brain wo con DATE: 08/16/2020 10:04 INDICATION: Frequent falls TECHNIQUE: Computed tomography (CT) of the head was performed without intravenous contrast. The mA wa s adjusted according to patient size. Iterative reconstruction technique was employed. Exam dose: 60 5.33 mGy-cm total exam DLP. COMPARISON: None FINDINGS: There are bilateral carotid siphon and supraclinoid internal carotid artery calcifications. There is nonspecific mild diminished attenuation of the cerebral white matter, likely due to chroni c small vessel ischemic changes. There is moderate central and cerebral cerebral atrophy. No intracranial mass lesion or hemorrhage or cerebrovascular accident. No midline shift or mass effe ct. No subdural or epidural hematoma. No orbital mass lesion. No skull fracture or bone destruction. The paranasal sinuses and mastoid air cells are normally developed and aerated. IMPRESSION: Cerebral atherosclerosis and chronic small vessel ischemic changes Reviewed, dictated and finalized at [facility]. Reviewed, dictated and finalized at [facility]. ING SUPERVISOR
== END 2020-08-16 09:35 | disposition home or self-care (01) ==
LOC: ANHIMG 09:48
PROVIDERS: PCP Family Medicine; Visit Provider Family Medicine
DX: R29.6 Repeated falls (principal); I67.2 Cerebral atherosclerosis
CPT/HCPCS: 70450

== ENCOUNTER 2020-11-27 11:25 | Emergency (ER) | payer MEDICARE, OTHER, SELFPAY ==
--- NOTE | ~2020-11-27 | CT_ITS ---
EXAMINATION: CT brain wo con DATE: 11/27/2020 12:40 INDICATION: Confusion. Altered mental status. TECHNIQUE: Computed tomography (CT) of the head was performed without intravenous contrast. The mA wa s adjusted according to patient size. Iterative reconstruction technique was employed. The dose-lengt h product was 681.00 mGy-cm. COMPARISON: Head CT 08/16/2020 FINDINGS: There are scattered areas of low attenuation in the cerebral white matter. There is no intr acranial hemorrhage, acute infarction, or abnormal intracranial mass lesion. The ventricles are tobias l in size. There are likely changes of ocular lens replacement surgeries. There is mild mucosal thick ening in the paranasal sinuses. There is a trace right mastoid effusion. IMPRESSION: 1. Stable mild nonspecific cerebral white matter disease, which likely represents chronic small vesse l ischemic disease. Reviewed, dictated and finalized at [facility]. IMPRESSION: 1. Stable mild nonspecific cerebral white matter disease, which likely represen ts chronic small vessel ischemic disease.
[2020-11-27 11:33] VITALS: BP 191/86; PULSE 65; RESP 18; TEMP 36.7; O2SAT 98
--- NOTE | 2020-11-27 11:44 | ECG_ITS ---
Measurements Intervals [place] Rate: 67 P: 63 AR: 234 QRS: 65 QRSD: 87 T: -45 QT: 402 QTc: 426 Interpretive Statements SINUS RHYTHM WITH FIRST DEGREE AV BLOCK LEFT VENTRICULAR HYPERTROPHY AND ST-T CHANGE CANNOT RULE OUT SEPTAL INFARCT, AGE INDETERMINATE BORDERLINE ST-T WAVE ABNORMALITY- INFERIOR LEADS BASELINE ARTIFACT- V3-V4 ABNORMAL ECG Electronically Signed On 11-28-2020 13:47:07 CDT by Nader Fernando D.O.
[2020-11-27 11:54] LABS: Basophils Absolute Auto 0.1 K/mm3 (0.0-0.1); Basophils Percent Auto 0.8 % (0.2-1.2); Eosinophils Absolute Auto 0.3 K/mm3 (0-0.3); Hematocrit 41.2 % (42.0-52.0); Hemoglobin 13.2 g/dL (14.0-18.0); Immature Granulocyte Absolute 0.03 K/mm3 (0.00-0.031); Immature Granulocyte Percent A 0.3 % (0-0.5); Lymphocytes Absolute Auto 2.02 K/mm3 (0.9-3.2); Lymphocytes Percent Auto 22.2 % (18.3-44.2); Mean Corpuscular Hemoglobin 30.7 pg (26-34); Mean Corpuscular Volume 95.8 fl (80-100); Monocytes Absolute Auto 1.2 K/mm3 (0.1-0.6); Monocytes Percent Auto 13.3 % (2.6-8.5); Neutrophils Absolute Auto 5.5 K/mm3 (1.3-6.7); Neutrophils Percent Auto 60.4 % (45.5-73.1); Platelet Count Result 212 k/mm3 (150-375); Red Cell Distribution Width 13.7 % (11.5-14.5); White Blood Count 9.1 K/mm3 (4.5-10.0)
[2020-11-27 12:06] LABS: Alanine Aminotransferase 40 U/L (4-50); Albumin Level 3.7 g/dL (3.5-5.1); Alkaline Phosphatase 93 U/L (38-126); Anion Gap 5 mmol/L (8-16); Aspartate Amino Transferase 37 U/L (17-59); Blood Urea Nitrogen 36 mg/dL (9-20); Calcium 9.8 mg/dL (8.4-10.2); Carbon Dioxide 29 mmol/L (22-30); Chloride 108 mmol/L (98-107); Estimated CRCL calculation 36 ml/min; Estimated Glomerular Filt Rate 45; Glucose 106 mg/dL (75-110); Potassium 3.9 mmol/L (3.4-5.0); Sodium 142 mmol/L (137-145)
[2020-11-27 12:32] LABS: Add Urine Microscopic? YES; Appearance Urine Clear (Clear); Bilirubin Urine Negative (Negative); Blood Urine Negative (Negative); Color Urine Yellow (Yellow); Glucose Urine UA Negative (Negative); Ketones Urine Negative (Negative); Leukocyte Esterase Ur Negative LEU/UL (Negative); Mucus Urine Rare /lpf; Nitrate Urine Negative (Negative); Protein Urine 3+ mg/dL (Negative); RBC Urine 0-2 /hpf (0-2); Specific Grav Ur 1.023 (1.001-1.035); Urobilinogen Urine Negative mg/dL (<2.0); WBC Urine 0-3 /hpf
[2020-11-27 13:09] LABS: Troponin I 0.016 ng/mL (0.000-0.034)
--- NOTE | 2020-11-27 13:12 | ED.AMS ---
HPI - Altered Mental Status General Chief Complaint: Altered Mental Status Stated Complaint: ams Time Seen by Provider: 11/27/20 12:11 Source: patient and family Limitations: dementia History of Present Illness HPI narrative: Patient is an 85-year-old male brought in by daughter due to visual hallucinations, described as seeing birds, circadas and cats inside his room that started 1 week ago. Daughter states that they recently increased his donepezil dose to 10 mg from 5 mg. Patient also had been recently placed on antibiotics for tooth extraction 1 week ago. Currently patient has no complaints. Denies any headache, dizziness, chest pain, shortness of breath, Wilver pain, nausea, vomiting, diarrhea, urinary symptoms, fever or chills. Related Data Home Medications Medication Instructions Recorded Confirmed Lantus U-100 Insulin 15 unit SUBCUT HS 06/14/20 06/14/20 apixaban 2.5 mg PO BID 06/14/20 06/14/20 aspirin 81 mg PO DAILY 06/14/20 06/14/20 atorvastatin 40 mg PO HS 06/14/20 06/14/20 calcium carbonate [Oyster Shell 500 mg PO DAILY 06/14/20 06/14/20 Calcium 500] citalopram 20 mg PO DAILY 06/14/20 06/14/20 finasteride [Proscar] 5 mg PO HS 06/14/20 06/14/20 levothyroxine 175 mcg PO DAILY 06/14/20 06/14/20 torsemide 10 mg PO DAILY PRN 06/14/20 06/14/20 clindamycin HCl 300 mg PO Q8H 11/27/20 finasteride [Proscar] mg 11/27/20 Allergies Allergy/AdvReac Type Severity Reaction Status Date / Time Penicillins Allergy Rash Verified 11/27/20 13:28 Review of Systems Review of Systems: All systems reviewed & are unremarkable except as noted in HPI and below Constitutional: Constitutional: Denies body ache(s), Denies chills, Denies excessive sweating, Denies fatigue, Denies fever(s), Denies headache(s), Denies lethargy, Denies malaise, Denies weakness and Denies weight loss Eyes: Eyes: Denies blurry vision, Denies change in vision and Denies loss of vision ENT: Denies dizziness, Denies ear discharge, Denies headache(s), Denies lip swelling, Denies epistaxis, Denies nasal congestion, Denies neck pain, Denies throat swelling and Denies tongue swelling Cardiovascular: Cardiovascular: Denies chest pain, Denies chest pain at rest, Denies chest pain with activity, Denies diaphoresis, Denies rapid heart rate, Denies edema, Denies irregular heart rhythm, Denies lightheadedness, Denies palpitations, Denies dyspnea and Denies dyspnea on exertion Respiratory: Respiratory: Denies chest congestion, Denies cough, Denies hemoptysis, Denies dyspnea and Denies dyspnea on exertion Gastrointestinal: Gastrointestinal: Denies abdominal pain, Denies melena, Denies hematochezia, Denies diarrhea, Denies nausea, Denies vomiting and Denies hematemesis Musculoskeletal: Musculoskeletal: Denies abnormal gait, Denies deformity, Denies joint swelling, Denies limited range of motion, Denies neck pain and Denies numbness Neurologic: Denies Abnormal speech present, Denies abnormal gait, Denies dizziness, Denies headache(s), Denies focal weakness, Denies loss of vision, Denies numbness, Denies Other visual disturbances, Denies Sensory deficit (Neuro) and Denies weakness Psychiatric: Psychiatric: Denies depression, Denies homicidal ideation and Denies suicidal ideation Endocrine: Endocrine: Denies cold intolerance, Denies excessive sweating, Denies fatigue, Denies heat intolerance and Denies palpitations Hematologic/Lymphatic: Hematologic/Lymphatic: Denies easy bleeding and Denies easy bruising Allergic/Immunologic: Allergic/Immunologic: Denies lip swelling, Denies throat swelling and Denies tongue swelling PMFSH Past Medical History Medical History BPH (benign prostatic hyperplasia) CAD (coronary artery disease) Carotid stenosis Diabetes mellitus FH: carotid endarterectomy History of DVT (deep vein thrombosis) HLD (hyperlipidemia) HTN (hypertension) Kidney disease Knee arthropathy Sleep apnea with use of
[2020-11-27 13:27] VITALS: BP 189/95; PULSE 66; RESP 19; O2SAT 99
[2020-11-27 15:01] VITALS: BP 201/74; PULSE 65; RESP 19; O2SAT 96
== END 2020-11-27 15:24 | disposition home or self-care (01) ==
PROVIDERS: Emergency Medicine; Emergency Provider Emergency Medicine
DX: R44.1 Visual hallucinations (principal); R41.0 Disorientation, unspecified; N40.0 Benign prostatic hyperplasia without lower urinary tract symptoms; I25.10 Atherosclerotic heart disease of native coronary artery without angina pectoris; E11.9 Type 2 diabetes mellitus without complications; E78.5 Hyperlipidemia, unspecified; I10 Essential (primary) hypertension; N28.9 Disorder of kidney and ureter, unspecified; G47.30 Sleep apnea, unspecified; E89.0 Postprocedural hypothyroidism; Z86.718 Personal history of other venous thrombosis and embolism; Z95.1 Presence of aortocoronary bypass graft; Z79.82 Long term (current) use of aspirin; Z79.4 Long term (current) use of insulin; Z79.01 Long term (current) use of anticoagulants; Z87.891 Personal history of nicotine dependence; I44.0 Atrioventricular block, first degree; I51.7 Cardiomegaly; R94.31 Abnormal electrocardiogram [ECG] [EKG]
CPT/HCPCS: 36415; 70450; 80053; 81001; 84484; 85025; 93005; 99284

== ENCOUNTER 2021-03-23 17:15 | Emergency (ER) | payer MEDICARE, OTHER, SELFPAY ==
[2021-03-23 17:25] VITALS: BP 142/88; PULSE 62; RESP 18; TEMP 37; O2SAT 98
[2021-03-23 17:51] LABS: Basophils Absolute Auto 0.1 K/mm3 (0.0-0.1); Basophils Percent Auto 0.6 % (0.2-1.2); Eosinophils Absolute Auto 0.3 K/mm3 (0-0.3); Eosinophils Percent Auto 3.4 % (0-4.4); Hematocrit 41.5 % (42.0-52.0); Hemoglobin 13.3 g/dL (14.0-18.0); Immature Granulocyte Absolute 0.03 K/mm3 (0.00-0.031); Immature Granulocyte Percent A 0.3 % (0-0.5); Lymphocytes Absolute Auto 2.83 K/mm3 (0.9-3.2); Lymphocytes Percent Auto 29.5 % (18.3-44.2); Mean Corpuscular Hemoglobin 31.8 pg (26-34); Mean Corpuscular Volume 99.3 fl (80-100); Mean Platelet Volume 10.8 fl (7.4-10.4); Monocytes Absolute Auto 1.2 K/mm3 (0.1-0.6); Monocytes Percent Auto 12.5 % (2.6-8.5); Neutrophils Absolute Auto 5.1 K/mm3 (1.3-6.7); Neutrophils Percent Auto 53.7 % (45.5-73.1); Platelet Count Result 237 k/mm3 (150-375); Red Blood Count 4.18 M/mm3 (4.6-6.20); Red Cell Distribution Width 13.2 % (11.5-14.5); White Blood Count 9.6 K/mm3 (4.5-10.0)
--- NOTE | 2021-03-23 18:50 | ED.GENADULT ---
HPI - General Adult General Chief complaint: Skin/Abscess/Foreign Body Stated complaint: WOUND ON BACK Time Seen by Provider: 03/23/21 17:40 Source: patient and family Mode of arrival: ambulatory Limitations: no limitations History of Present Illness HPI narrative: Patient presents with chief complaint of draining cyst to his back. Family states the patient has had the cyst for over a year but it just comes when he had an open and expressing drainage over the past few days. They have been washing it and applying clean bandages. The family states that there is some odor to the drainage sprays. She states that it is cheeselike. Patient denies having fever, chills, nausea, vomiting, weakness or any other symptoms. Related Data Home Medications Medication Instructions Recorded Confirmed Lantus U-100 Insulin 15 unit SUBCUT HS 06/14/20 12/13/20 apixaban 2.5 mg PO BID 06/14/20 12/13/20 aspirin 81 mg PO DAILY 06/14/20 12/13/20 atorvastatin 40 mg PO HS 06/14/20 12/13/20 calcium carbonate [Oyster Shell 500 mg PO DAILY 06/14/20 12/13/20 Calcium 500] citalopram 20 mg PO DAILY 06/14/20 12/13/20 finasteride [Proscar] 5 mg PO HS 06/14/20 12/13/20 levothyroxine 175 mcg PO DAILY 06/14/20 12/13/20 torsemide 10 mg PO DAILY PRN 06/14/20 12/13/20 clindamycin HCl 300 mg PO Q8H 11/27/20 12/13/20 finasteride [Proscar] mg 11/27/20 12/13/20 Allergies Allergy/AdvReac Type Severity Reaction Status Date / Time Penicillins Allergy Rash Verified 03/23/21 17:28 Review of Systems Review of Systems: CONSTITUTIONAL: Denies fever, chills, or sweats. EYES: Denies visual changes, redness, or discharge. ENT: Denies rhinorrhea, congestion, sore throat, or otalgia. CARDIOVASCULAR: Denies chest pain, palpitations, or edema. RESPIRATORY: Denies cough or dyspnea. GASTROINTESTINAL: Denies abdominal pain, nausea, vomiting, or diarrhea. GENITOURINARY: Denies dysuria or hematuria. SKIN: Reports wound denies rash or itching. MUSCULOSKELETAL: Denies back pain, joint pain, or myalgia. NEUROLOGIC: Denies headache, numbness, dizziness, or weakness. PSYCHIATRIC: Denies anxiety or depression. [facility] Past Medical History Medical History Absence of cataract of left eye BPH (benign prostatic hyperplasia) CAD (coronary artery disease) Carotid stenosis Cataract fragments of both eyes following cataract surgery Cataracts, both eyes Diabetes mellitus FH: carotid endarterectomy History of DVT (deep vein thrombosis) HLD (hyperlipidemia) HTN (hypertension) Kidney disease Knee arthropathy Sleep apnea with use of continuous positive airway pressure (CPAP) Thyroid nodule Surgical History Surgical History H/O repair of rotator cuff H/O thyroidectomy S/P CABG x 2 Social History Social History Smoking status: Former smoker Alcohol intake: never Substance use: never Gender identity (if verbalized by the patient): Male Spiritual care concerns: No Exam Narrative: GENERAL: Well-appearing, well-nourished, and in no acute distress. HEAD: Normocephalic, atraumatic. EYES: PERRLA and EOMI. CHEST: Clear to auscultation. No respiratory distress. No wheezes rales or rhonchi HEART: Regular rate and rhythm. EXTREMITIES: Normal range of motion. No edema. SKIN: There is a cyst approximately 2 inches in circumference patient back. There is a opening in the center approximately 2 cm. drainage can be expressed when pressed. Drainage not purulent. Thick and cheeselike but some greenish color. No streaking from site. warm, dry, no rash. NEURO: No focal deficits. Alert and oriented x3. PSYCH: Normal mood and affect. Course Vital Signs Vital signs: Vital Signs Temperature 98.6 F 03/23/21 17:25 Pulse Rate 62 03/23/21 17:25 Respiratory Rate 18 03/23/21 17:25 Blood Pressure 142/88 H 03/23/21 17:25 Pulse Oximet
[2021-03-23 18:52] LABS: Alanine Aminotransferase 55 U/L (4-50); Albumin Level 3.7 g/dL (3.5-5.1); Alkaline Phosphatase 103 U/L (38-126); Anion Gap 6 mmol/L (8-16); Aspartate Amino Transferase 46 U/L (17-59); Bilirubin,Total 0.7 mg/dL (0.2-1.3); Blood Urea Nitrogen 31 mg/dL (9-20); Calcium 9.4 mg/dL (8.4-10.2); Carbon Dioxide 29 mmol/L (22-30); Chloride 106 mmol/L (98-107); Estimated CRCL calculation 40 ml/min; Estimated Glomerular Filt Rate 53; Glucose 99 mg/dL (65-110); Potassium 4.6 mmol/L (3.4-5.0); Sodium 141 mmol/L (137-145)
[2021-03-23 18:57] VITALS: BP 132/74; PULSE 84; RESP 16; O2SAT 98
[2021-03-23 19:19] VITALS: BP 130/70; PULSE 82; RESP 18; O2SAT 98
== END 2021-03-23 19:20 | disposition home or self-care (01) ==
PROVIDERS: Emergency Medicine; Emergency Provider Emergency Medicine; PCP Family Medicine
DX: L98.9 Disorder of the skin and subcutaneous tissue, unspecified (principal); I25.10 Atherosclerotic heart disease of native coronary artery without angina pectoris; I65.29 Occlusion and stenosis of unspecified carotid artery; E11.9 Type 2 diabetes mellitus without complications; E78.5 Hyperlipidemia, unspecified; I10 Essential (primary) hypertension; N40.0 Benign prostatic hyperplasia without lower urinary tract symptoms; N28.9 Disorder of kidney and ureter, unspecified; G47.30 Sleep apnea, unspecified; Z86.718 Personal history of other venous thrombosis and embolism; Z95.1 Presence of aortocoronary bypass graft; E89.0 Postprocedural hypothyroidism; Z87.891 Personal history of nicotine dependence; Z79.4 Long term (current) use of insulin; Z79.82 Long term (current) use of aspirin; Z98.42 Cataract extraction status, left eye; Z98.41 Cataract extraction status, right eye
CPT/HCPCS: 36415; 80053; 85025; 99283

== ENCOUNTER 2022-04-03 11:58 | Emergency (ER) | payer MEDICARE, OTHER, SELFPAY ==
[2022-04-03] VITALS (15 sets, daily range): BP systolic 222–254; BP diastolic 74–96; PULSE 60–69; RESP 14–202; TEMP 37.2; O2SAT 91–96
--- NOTE | ~2022-04-03 | CT_ITS ---
EXAMINATION: CT brain wo con DATE: 04/03/2022 13:22 INDICATION: Confusion. Altered mental status. TECHNIQUE: Computed tomography (CT) of the head was performed without intravenous contrast. The mA wa s adjusted according to patient size. Iterative reconstruction technique was employed. The dose-lengt h product was 605.33 mGy-cm. COMPARISON: Head CT 11/27/2020 FINDINGS: There are scattered areas of low attenuation in the cerebral white matter. There is no intr acranial hemorrhage, acute infarction, or abnormal intracranial mass lesion. The ventricles are otbias l in size. There are likely changes of ocular lens replacement surgeries. There is mild mucosal thick ening in the paranasal sinuses. There are small bilateral mastoid effusions. IMPRESSION: 1. Stable mild nonspecific cerebral white matter disease, which likely represents chronic small vesse l ischemic disease. Reviewed, dictated and finalized at location B. IMPRESSION: 1. Stable mild nonspecific cerebral white matter disease, which likely represen ts chronic small vessel ischemic disease.
--- NOTE | ~2022-04-03 | XR_ITS ---
XR chest 2V 04/03/2022 13:29 Indication: Altered mental status. Pneumonia. Procedure: AP and lateral views the chest Comparison: No prior studies for comparison. Findings: Status post median sternotomy for CABG. Borderline heart size. Left basilar infiltrates may represent atelectasis or pneumonia. No pleural effusion or pneumothorax. No edema. There are degener ative changes of the shoulders. Impression: 1: Retrocardiac infiltrates may represent atelectasis or developing pneumonia. Reviewed, dictated and finalized at location A. Impression: 1: Retrocardiac infiltrates may represent atelectasis or developing pneumonia.
--- NOTE | 2022-04-03 12:01 | ECG_ITS ---
Measurements Intervals [place] Rate: 65 P: 70 UT: 230 QRS: 31 QRSD: 128 T: -72 QT: 434 QTc: 454 Interpretive Statements SINUS RHYTHM WITH FIRST-DEGREE AV BLOCK LEFT VENTRICULAR HYPERTROPHY WITH ST ABNORMALITY CANNOT RULE OUT SEPTAL INFARCT, AGE INDETERMINATE ABNORMAL ECG COMPARED TO ECG 11/27/2020 11:33:59 NO SIGNIFICANT CHANGES Electronically Signed On 04-03-2022 17:17:54 CDT by Main Dugan M.D.
--- NOTE | 2022-04-03 12:42 | ED.AMS ---
HPI - Altered Mental Status General Chief Complaint: Altered Mental Status Stated Complaint: CONFUSION Time Seen by Provider: 04/03/22 11:58 History of Present Illness HPI narrative: This is an 86-year-old male with past medical history of hypothyroidism, orthostatic hypotension, diabetes, who presents emergency department with intermittent episodes of confusion. EMS report (per nursing staff) was the patient presented at his senior living with complaints of confusion and intermittent lightheadedness. Patient's daughter who is at bedside states she believes the patient forgot to take his medications yesterday morning resulting in his lightheadedness and was told of intermittent episodes of confusion, with otherwise normal mental status. Patient has no other complaints. Related Data Home Medications Medication Instructions Recorded Confirmed apixaban 2.5 mg tablet 2.5 mg PO BID 06/14/20 12/13/20 aspirin 81 mg tablet,delayed 81 mg PO DAILY 06/14/20 12/13/20 release atorvastatin 40 mg tablet 40 mg PO HS 06/14/20 12/13/20 calcium carbonate 500 mg calcium 500 mg PO DAILY 06/14/20 12/13/20 (1,250 mg) tablet (Oyster Shell Calcium 500) citalopram 40 mg tablet 20 mg PO DAILY 06/14/20 12/13/20 finasteride 5 mg tablet (Proscar) 5 mg PO HS 06/14/20 12/13/20 insulin glargine 100 unit/mL 15 unit subcut HS 06/14/20 12/13/20 subcutaneous solution (Lantus U-100 Insulin) levothyroxine 175 mcg tablet 175 mcg PO DAILY 06/14/20 12/13/20 torsemide 10 mg tablet 10 mg PO DAILY PRN Edema 06/14/20 12/13/20 clindamycin HCl 300 mg capsule 300 mg PO Q8H 11/27/20 12/13/20 finasteride 5 mg tablet (Proscar) mg 11/27/20 12/13/20 Allergies Allergy/AdvReac Type Severity Reaction Status Date / Time Penicillins Allergy Rash Verified 03/23/21 17:28 Review of Systems Review of Systems: CONSTITUTIONAL: Denies fever, chills, or sweats. EYES: Denies visual changes, redness, or discharge. ENT: Denies rhinorrhea, congestion, sore throat, or otalgia. CARDIOVASCULAR: Denies chest pain, palpitations, or edema. RESPIRATORY: Denies cough or dyspnea. GASTROINTESTINAL: Denies abdominal pain, nausea, vomiting, or diarrhea. GENITOURINARY: Denies dysuria or hematuria. SKIN: Denies rash or itching. MUSCULOSKELETAL: Denies back pain, joint pain, or myalgia. NEUROLOGIC: Denies headache, numbness, dizziness, or weakness. PSYCHIATRIC: Denies anxiety or depression. [facility] Past Medical History Medical History Absence of cataract of left eye BPH (benign prostatic hyperplasia) CAD (coronary artery disease) Carotid stenosis Cataract fragments of both eyes following cataract surgery Cataracts, both eyes Diabetes mellitus FH: carotid endarterectomy History of DVT (deep vein thrombosis) HLD (hyperlipidemia) HTN (hypertension) Kidney disease Knee arthropathy Sleep apnea with use of continuous positive airway pressure (CPAP) Thyroid nodule Surgical History Surgical History H/O repair of rotator cuff H/O thyroidectomy S/P CABG x 2 Social History Social History Smoking status: Former smoker Alcohol intake: never Substance use: never Gender identity (if verbalized by the patient): Male Spiritual care concerns: No Exam Narrative: GENERAL: Well-appearing, well-nourished, and in no acute distress. HEAD: Normocephalic, atraumatic. EYES: PERRLA and EOMI. ENT: Nares clear, no rhinorrhea or epistaxis. Mucous membranes dry. Oropharynx without tonsillar hypertrophy exudate or other lesions. NECK: Supple. No adenopathy or masses. No carotid bruits or JVD CHEST: Well-healed midline surgical scar consistent with CABG, pacemaker palpated in the left anterior chest wall with well-healed surgical scar and no noted erythema or induration. Clear to auscultation. No respiratory distress. No wheezes rales or rhonchi
[2022-04-03 13:03] LABS: Basophils Absolute Auto 0.1 K/mm3 (0.0-0.1); Basophils Percent Auto 0.8 % (0.2-1.2); Eosinophils Absolute Auto 0.3 K/mm3 (0-0.3); Eosinophils Percent Auto 3.4 % (0-4.4); Hematocrit 40.9 % (42.0-52.0); Hemoglobin 13.1 g/dL (14.0-18.0); Immature Granulocyte Absolute 0.05 K/mm3 (0.00-0.031); Immature Granulocyte Percent A 0.5 % (0-0.5); Lymphocytes Absolute Auto 2.52 K/mm3 (0.9-3.2); Lymphocytes Percent Auto 27.2 % (18.3-44.2); Mean Corpuscular Hemoglobin 31.3 pg (26-34); Mean Corpuscular Volume 97.8 fl (80-100); Mean Platelet Volume 12.1 fl (7.4-10.4); Monocytes Absolute Auto 1.3 K/mm3 (0.1-0.6); Monocytes Percent Auto 14.3 % (2.6-8.5); Neutrophils Percent Auto 53.8 % (45.5-73.1); Platelet Count Result 200 k/mm3 (150-375); Red Blood Count 4.18 M/mm3 (4.6-6.20); Red Cell Distribution Width 13.6 % (11.5-14.5); White Blood Count 9.3 K/mm3 (4.5-10.0)
[2022-04-03 13:07] LABS: Alanine Aminotransferase 57 U/L (6-50); Albumin Level 3.7 g/dL (3.5-5.1); Alkaline Phosphatase 97 U/L (38-126); Anion Gap 10 mmol/L (8-16); Aspartate Amino Transferase 57 U/L (17-59); Blood Urea Nitrogen 23 mg/dL (9-20); Carbon Dioxide 28 mmol/L (22-30); Chloride 102 mmol/L (98-107); Estimated CRCL calculation 36 ml/min; Estimated Glomerular Filt Rate 41; Glucose 113 mg/dL (65-110); Potassium 4.1 mmol/L (3.4-5.0); Sodium 140 mmol/L (137-145)
[2022-04-03 13:14] LABS: INR 1.3; Prothrombin Time 15.2 Seconds (11.1-14.7)
[2022-04-03 13:15] LABS: Partial Thromboplastin Time 31.4 SECONDS (22.3-36.8)
[2022-04-03 13:21] LABS: Appearance Urine Clear (Clear); Bilirubin Urine Negative (Negative); Blood Urine Trace-intact (Negative); Color Urine Yellow (Yellow); Glucose Urine UA Negative (Negative); Ketones Urine Negative (Negative); Leukocyte Esterase Ur Negative LEU/UL (Negative); Nitrate Urine Negative (Negative); Protein Urine 3+ mg/dL (Negative); Specific Grav Ur 1.025 (1.001-1.035); Urobilinogen Urine 0.2 mg/dL (<2.0)
[2022-04-03 13:27] LABS: Bacteria Urine Trace /hpf; RBC Urine 0-2 /hpf (0-2); Squamous Epithelial Cell Urine Rare /hpf (Few); WBC Urine 0-3 /hpf
[2022-04-03 13:35] LABS: Add Urine Microscopic? YES
[2022-04-03 13:38] LABS: Amphetamine Screen Urine Negative (Negative); Barbiturate Screen Urine Negative (Negative); Benzodiazepines Screen Urine Negative (Negative); Cannabinoid Screen Urine Negative (Negative); Cocaine Screen Urine Negative (Negative); Methadone Screen Urine Negative (Negative); Opiate Screen Urine Negative (Negative); Phencyclidine Screen Urine Negative (Negative)
[2022-04-03 13:47] LABS: Troponin I 0.014 ng/mL (0.000-0.034)
--- NOTE | 2022-04-03 15:15 | PC.NURSE ---
ERP notified and aware of Pt. high blood pressure. Pt. takes midodrine for orthostatic hypotension. Pt. to take next scheduled dose of hypertensive medications. ERP is ok with discharge.
[2022-04-09 17:47] VITALS: BP 258/99; PULSE 89; RESP 20; O2SAT 97
== END 2022-04-03 15:18 ==
PROVIDERS: Emergency Provider Preventive Medicine Aerospace Medicine; PCP Family Medicine
DX: J18.9 Pneumonia, unspecified organism (principal); R41.0 Disorientation, unspecified; E11.9 Type 2 diabetes mellitus without complications; I25.10 Atherosclerotic heart disease of native coronary artery without angina pectoris; I10 Essential (primary) hypertension; E78.5 Hyperlipidemia, unspecified; N40.0 Benign prostatic hyperplasia without lower urinary tract symptoms; G47.33 Obstructive sleep apnea (adult) (pediatric); E89.0 Postprocedural hypothyroidism; Z86.718 Personal history of other venous thrombosis and embolism; Z95.1 Presence of aortocoronary bypass graft; Z79.01 Long term (current) use of anticoagulants; Z79.82 Long term (current) use of aspirin; Z79.4 Long term (current) use of insulin; Z87.891 Personal history of nicotine dependence; Z79.899 Other long term (current) drug therapy
CPT/HCPCS: 36415; 70450; 71046; 80053; 80307; 81001; 84443; 84484; 85025; 85610; 85730; 93005; 99284

== ENCOUNTER 2022-04-09 13:34 | Inpatient (IN) | payer MEDICARE, OTHER, SELFPAY ==
[2022-04-09] VITALS (35 sets, daily range): BP systolic 140–243; BP diastolic 71–130; PULSE 68–99; RESP 15–23; TEMP 36.8–37.1; O2SAT 92–100
--- NOTE | ~2022-04-09 | CT_ITS ---
EXAMINATION: CT soft tissue neck wo con DATE: 04/10/2022 13:24 INDICATION: Left neck mass. TECHNIQUE: Computed tomography (CT) of the neck was performed with 75 mL Omnipaque-350 intravenous co ntrast. Automated exposure control and iterative reconstruction technique were employed. The dose-kain gth product was 579.36 mGy-cm. COMPARISON: CT cervical spine 04/09/2022, ultrasound 04/10/2022 FINDINGS: There are no pathologically enlarged lymph nodes. There is a left chest wall pacer with blair ds in the right atrium and right ventricle. Median sternotomy wires are noted. There are changes of l eft hemithyroidectomy. There is fat stranding in left neck anterolateral to the carotid bifurcation. There is severe cervical spondylosis. IMPRESSION: 1. Fat stranding in left neck anterolateral to the carotid bifurcation, likely scarring from carotid endarterectomy. Reviewed, dictated and finalized at location A.
--- NOTE | ~2022-04-09 | XR_ITS ---
EXAMINATION: XR hand LT min 3V INDICATION: Left hand pain TECHNIQUE: Three views of the left hand are obtained. COMPARISON: None available FINDINGS: There is advanced osteoarthritis at the first carpometacarpal joint, the second and third m etacarpophalangeal joints, and in multiple interphalangeal joints. No fracture is identified. There i s soft tissue swelling of the third finger. Calcified atherosclerosis is noted. IMPRESSION: 1. 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 Reviewed, dictated and finalized at location A.
--- NOTE | ~2022-04-09 | XR_ITS ---
EXAMINATION: XR chest 2V DATE: 04/09/2022 14:07 INDICATION: Hypertension and coronary artery disease TECHNIQUE: frontal and lateral views of the chest were obtained. COMPARISON: Chest radiograph dated 04/03/2022 FINDINGS: Elevation of the left hemidiaphragm. Persistent opacities in the left mid to lower lung zone. No pulm onary edema, pleural effusion or pneumothorax. Heart size is normal. Median sternotomy wires and medi astinal surgical clips are seen, likely from prior coronary artery bypass grafting. Dual lead pacemak er seen with leads projecting over the expected locations of the right atrium and right ventricle. Th ere are bridging osteophytes at multiple levels in the spine, consistent with diffuse idiopathic skel etal hyperostosis (DISH). Suture anchors at the right humeral head consistent with prior rotator cuff repair. IMPRESSION: 1. Persistent opacity left mid and lower lung zone with likely atelectasis given the elevation of lef t hemidiaphragm with differential including pneumonia. Reviewed, dictated and finalized at location B. IMPRESSION: 1. Persistent opacity left mid and lower lung zone with likely atelectasis give n the elevation of left hemidiaphragm with differential including pneumonia.
--- NOTE | ~2022-04-09 | CT_ITS ---
EXAMINATION: CT cervical spine wo con DATE: 04/09/2022 14:15 INDICATION: fall TECHNIQUE: Computed tomography (CT) of the cervical spine was performed without intravenous contrast. Automated exposure control and iterative reconstruction technique were employed. The dose-length pro duct was 534.11 mGy-cm. COMPARISON: None FINDINGS: Vertebral Body Alignment: Reversal of the normal cervical lordosis centered at C5. Craniocervical and atlantoaxial alignment: Moderate degenerative change. Alignment intact. Osseous structures/fracture: No evidence of a lytic or blastic process in the visualized spine. Presu med chronic mild height loss at C4-C7. No evidence of acute fracture. Trace right mastoid fluid Cervical soft tissues: The paraspinal soft tissues planes are maintained. Heavy aortic arch calcifica tion. Prior left thyroidectomy. Degenerative changes: Multilevel severe degenerative disc disease and facet arthropathy. Multilevel m oderate neural foraminal narrowing bilaterally. Moderate central canal narrowing at C5-6 and C6-7. IMPRESSION: No acute fracture or traumatic malalignment in the cervical spine. Reviewed, dictated and finalized at location K.
--- NOTE | ~2022-04-09 | CT_ITS ---
EXAMINATION: CT abdomen pelvis w con DATE: 04/09/2022 19:03 INDICATION: abdominal pain after fall TECHNIQUE: Computed tomography (CT) of the abdomen and pelvis was performed with 100 mL Omnipaque-350 intravenous contrast. Automated exposure control and iterative reconstruction technique were employe d. The dose-length product was 1600.96 mGy-cm. COMPARISON: None. FINDINGS: Lower thorax: Motion artifact. Senescent change. Dependent scar/atelectasis. Incompletely visualized pacing wires. Coronary artery and aortic calcifications. Liver: Normal. Biliary/Gallbladder: Gallbladder is mildly distended. Gallstones present. No bile duct dilation. Pancreas: No mass or duct dilation. Spleen: Normal. Adrenals:No mass. Kidneys: Multiple left renal cysts and lesions that are too small to characterize but also likely rep resent cysts. GI tract: The rectum is mildly dilated to 5.1 cm by formed stool, otherwise no small or large bowel d ilation. Normal appendix. Diverticulosis without diverticulitis. Mesentery/Peritoneum: No ascites, mass, or free air. Retroperitoneum: No mass. Atherosclerotic abdominal aortic and/or arterial calcifications. Aortobifem oral stents Pelvis: Bladder wall thickening, likely secondary to outlet compromise from prostatomegaly. Soft Tissues: Left trunk and left hip edema/contusion. Bones: No acute osseous finding. IMPRESSION: No acute traumatic finding in the abdomen or pelvis. Possible fecal impaction. Additional chronic and incidental findings are detailed above. Reviewed, dictated and finalized at location K.
--- NOTE | ~2022-04-09 | US_ITS ---
EXAMINATION: US carotid duplex BI DATE: 04/10/2022 12:28 INDICATION: Syncope. Carotid atherosclerosis and stenosis. TECHNIQUE: Grayscale, color Doppler, and pulsed Doppler images of the cervical carotid arteries were obtained. The degree of vessel stenosis is placed in one of the following categories: normal, <50%, 5 0-69%, >=70% but less than near-occlusion, near-occlusion, or total occlusion. Note that percent sten osis relative to normal distal artery lumen diameter is indirectly measured from velocity measurement s as described by Karel, et al. Radiology 2003; [id number]. COMPARISON: None. FINDINGS: RIGHT: The right common carotid artery (CCA) peak systolic velocity (PSV) is 68 cm/s. The right internal car otid artery (ICA) PSV is 104 cm/s. The right ICA end-diastolic velocity (EDV) is 16 cm/s. The right I CA/CCA PSV ratio is 1.5. Grayscale and color Doppler images yield an estimate of <50% diameter reduct ion from plaque in the ICA. The external carotid artery (ECA) PSV is 125 cm/s. There is bidirectional flow in the right vertebral artery. LEFT: The left CCA PSV is 53 cm/s. Artery arising from the left common carotid artery, unclear whether this represents the left ICA or ECA with PSV of 60 cm/s and EDV is 0 cm/s. There is a second vessel arisi ng from the common carotid artery with minimal bidirectional flow suggesting this may be thrombosed, again unclear whether this represents the ICA or ECA. There is antegrade flow in the left vertebral a rtery. IMPRESSION: 1. <50% stenosis in the right internal carotid artery. 2. Likely thrombosed vessel arising from the left common carotid artery, unclear whether this represe nts the ICA or ECA. Recommend further evaluation with carotid CT angiogram. 3. Bidirectional flow in the right vertebral artery which suggests subcutaneous steal with high-grade stenosis of the right subclavian artery proximal to the takeoff of the right femoral artery. This co uld also be further evaluated at the same time with carotid CT angiogram. Reviewed, dictated and finalized at location B. IMPRESSION: 1. <50% stenosis in the right internal carotid artery. 2. Likely thrombosed vessel arising from the left common carotid artery, unclea r whether this represents the ICA or ECA. Recommend further evaluation with car otid CT angiogram. 3. Bidirectional flow in the right vertebral artery which suggests subcutaneous steal with high-grade stenosis of the right subclavian artery proximal to the takeoff of the right femoral artery. This could also be further evaluated at th e same time with carotid CT angiogram.
--- NOTE | ~2022-04-09 | CT_ITS ---
EXAMINATION: CT brain wo con DATE: 04/10/2022 13:24 INDICATION: Slurred speech. TECHNIQUE: Computed tomography (CT) of the head was performed without intravenous contrast. The mA wa s adjusted according to patient size. Iterative reconstruction technique was employed. The dose-lengt h product was 605.33 mGy-cm. COMPARISON: Head CT 04/09/2022 FINDINGS: There are scattered areas of low attenuation in the cerebral white matter. There is no intr acranial hemorrhage, acute infarction, or abnormal intracranial mass lesion. The ventricles are tobias l in size. There is mild mucosal thickening in the paranasal sinuses. There are trace bilateral masto id effusions. There are likely changes of ocular lens replacement surgeries. IMPRESSION: 1. Stable mild nonspecific cerebral white matter disease, which likely represents chronic small vesse l ischemic disease. Reviewed, dictated and finalized at location A. IMPRESSION: 1. Stable mild nonspecific cerebral white matter disease, which likely represen ts chronic small vessel ischemic disease.
--- NOTE | ~2022-04-09 | CT_ITS ---
EXAMINATION: CT brain wo con DATE: 04/09/2022 14:14 INDICATION: Head injury. TECHNIQUE: Computed tomography (CT) of the head was performed without intravenous contrast. The mA wa s adjusted according to patient size. Iterative reconstruction technique was employed. The dose-lengt h product was 605.33 mGy-cm. COMPARISON: Head CT 04/03/2022 FINDINGS: There are scattered areas of low attenuation in the cerebral white matter. There is no intr acranial hemorrhage, acute infarction, or abnormal intracranial mass lesion. The ventricles are tobias l in size. There are likely changes of ocular lens replacement surgeries. There is mild mucosal thick ening in the paranasal sinuses. There is a small right mastoid effusion. IMPRESSION: 1. Stable mild nonspecific cerebral white matter disease, which likely represents chronic small vesse l ischemic disease. Reviewed, dictated and finalized at location A. IMPRESSION: 1. Stable mild nonspecific cerebral white matter disease, which likely represen ts chronic small vessel ischemic disease.
--- NOTE | ~2022-04-09 | CT_ITS ---
EXAMINATION: CTA brain carotid DATE: 04/10/2022 15:01 INDICATION: Syncope. Slurred speech. TECHNIQUE: Computed tomographic angiography (CTA) of the head was performed with 100 mL Omnipaque-350 intravenous contrast. CTA of the neck was performed with intravenous contrast. Automated exposure co ntrol and iterative reconstruction technique were employed. The dose-length product was 1131.56 mGy-c m. Maximum intensity projection and volume rendered 3D-reconstructions were created by the technpraveeni on a separate workstation. COMPARISON: Head CT 04/10/2022 FINDINGS: HEAD CTA: There is no intracranial hemorrhage, acute infarction, or abnormal intracranial mass lesion . There are scattered areas of low attenuation in the cerebral white matter. The ventricles are tobias l in size. There is mild mucosal thickening in the paranasal sinuses. There are small bilateral masto id effusions. There are likely changes of ocular lens replacement surgeries. The vertebral arteries a re codominant. There is no significant stenosis of basilar artery or the posterior cerebral arteries. The posterior communicating arteries are normal. There is no significant stenosis of the intracrania l internal carotid arteries or anterior or middle cerebral arteries. Anterior communicating artery is normal. There is no aneurysm. NECK CTA: There is mild emphysema. There are changes of left hemithyroidectomy. There are no patholog ically enlarged lymph nodes. In the right posterior thorax, there is an 11 mm subcutaneous cyst, like ly a sebaceous cyst. There is no significant stenosis of the vertebral arteries. There is plaque in t he proximal internal carotid arteries. 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 There is fat stranding anterolateral to this area, consistent with sca rring. There is 45% stenosis of the proximal right internal carotid artery relative to normal distal artery lumen diameter (NASCET criteria). There is 32% stenosis of the proximal left internal carotid artery relative to normal distal artery lumen diameter. There is severe stenosis of proximal left ext ernal carotid artery. There is severe cervical spondylosis. IMPRESSION: 1. Mild nonspecific cerebral white matter disease, which likely represents chronic small vessel ische isabella disease. 2. No aneurysm or significant intracranial internal stenosis. 3. 45% stenosis of the proximal right internal carotid artery relative to normal distal artery lumen diameter (NASCET criteria). 4. 32% stenosis of the proximal left internal carotid artery relative to normal distal artery lumen d iameter. 5. 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 Reviewed, dictated and finalized at location A. IMPRESSION: 1. Mild nonspecific cerebral white matter disease, which likely represents pipe bowl paint trimmer deysi small vessel ischemic disease. 2. No aneurysm or significant intracranial internal stenosis. 3. 45% stenosis of the proximal right internal carotid artery relative to tobias l distal artery lumen diameter (NASCET criteria). 4. 32% stenosis of the proximal left internal carotid artery relative to normal distal artery lumen diameter. 5. 9 mm pseudoaneurysm of anterolateral aspect of distal left common carotid ar susanne status post carotid endarterectomy.
--- NOTE | ~2022-04-09 | US_ITS ---
EXAMINATION: US retroperitoneal duplex ltd DATE: 04/12/2022 11:34 INDICATION: hypertension TECHNIQUE: Multiple grayscale, color Doppler, and pulsed Doppler images of the kidneys and renal marlon miguelangel were obtained. COMPARISON: CT abdomen and pelvis dated 04/09/2022 FINDINGS: The aorta peak systolic velocity is 53 cm/s. The right renal artery peak systolic velocity is 195 cm/ s in the proximal segment, 156 cm/s in the mid segment, and 161 cm/s in the distal segment. The regio n of the left renal artery is obscured by shadowing bowel gas. IMPRESSION: 1. Elevated peak systolic velocities in the proximal right renal artery, borderline criteria for a > 50-60% stenosis. 2. Nonvisualization of the left renal arteries due to shadowing bowel gas. Of note there appears to b e a greater atherosclerotic plaque burden at the proximal left renal artery than on the right. Reviewed, dictated and finalized at location B. IMPRESSION: 1. Elevated peak systolic velocities in the proximal right renal artery, borde rline criteria for a >50-60% stenosis. 2. Nonvisualization of the left renal arteries due to shadowing bowel gas. Of n ote there appears to be a greater atherosclerotic plaque burden at the proximal left renal artery than on the right.
--- NOTE | ~2022-04-09 | CT_ITS ---
EXAMINATION: CT brain wo con DATE: 04/11/2022 10:52 INDICATION: Hypertensive urgency. TECHNIQUE: Computed tomography (CT) of the head was performed without intravenous contrast. The mA wa s adjusted according to patient size. Iterative reconstruction technique was employed. The dose-lengt h product was 605.33 mGy-cm. COMPARISON: Head CT 04/10/2022 FINDINGS: There are scattered areas of low attenuation in the cerebral white matter. There is no intr acranial hemorrhage, acute infarction, or abnormal intracranial mass lesion. The ventricles are tobias l in size. There are likely changes of ocular lens replacement surgeries. There is mild mucosal thick ening in the paranasal sinuses. There are small bilateral mastoid effusions. IMPRESSION: 1. Stable mild nonspecific cerebral white matter disease, which likely represents chronic small vesse l ischemic disease. Reviewed, dictated and finalized at location A. IMPRESSION: 1. Stable mild nonspecific cerebral white matter disease, which likely represen ts chronic small vessel ischemic disease.
--- NOTE | 2022-04-09 13:37 | ED.FALL ---
HPI - Fall General Chief Complaint: Fall Stated Complaint: htn, altered loc, glf Time Seen by Provider: 04/09/22 13:37 History of Present Illness HPI Narrative: Patient is an 86-year-old male with a history of CAD, orthostatic hypotension on midodrine, hypothyroidism, hyperlipidemia presenting with a fall. Patient states that he was walking today when he suddenly went down. States that he struck the left side of his head but denies losing consciousness. Denies neck pain. States that he had a similar episode last week of lightheadedness. He was seen here and was able to be discharged with antibiotics for pneumonia. Patient's daughter states that she is concerned he has not been taking his medications appropriately. States that she is concerned he has been taking his morning medications later than he should be. Other than a mild headache, patient denies complaints. Denies vision changes, focal numbness or weakness, chest pain, palpitations, abdominal pain, nausea or vomiting, diarrhea, dysuria. States he has chronic shortness of breath. Related Data Home Medications Medication Instructions Recorded Confirmed apixaban 2.5 mg tablet 2.5 mg PO BID 06/14/20 04/09/22 aspirin 81 mg tablet,delayed 81 mg PO DAILY 06/14/20 04/09/22 release atorvastatin 40 mg tablet 40 mg PO HS 06/14/20 04/09/22 calcium carbonate 500 mg calcium 500 mg PO DAILY 06/14/20 04/09/22 (1,250 mg) tablet (Oyster Shell Calcium 500) citalopram 40 mg tablet 20 mg PO DAILY 06/14/20 04/09/22 finasteride 5 mg tablet (Proscar) 5 mg PO HS 06/14/20 04/09/22 insulin glargine 100 unit/mL 15 unit subcut HS 06/14/20 04/09/22 subcutaneous solution (Lantus U-100 Insulin) levothyroxine 175 mcg tablet 175 mcg PO DAILY 06/14/20 04/09/22 tamsulosin 0.4 mg capsule (Flomax) 0.4 mg PO DAILY 04/09/22 04/09/22 donepezil 5 mg tablet 5 mg PO DAILY 04/10/22 04/10/22 Allergies Allergy/AdvReac Type Severity Reaction Status Date / Time Penicillins Allergy Rash Verified 03/23/21 17:28 Review of Systems Review of Systems: All systems reviewed & are unremarkable except as noted in HPI and below PMFSH Past Medical History Medical History Asbestosis Benign prostatic hyperplasia Carotid stenosis Chronic anticoagulation Chronic kidney disease, stage 3 Coronary artery disease Deep venous thrombosis History of falling Hyperlipidemia Hypertension Hypothyroidism Insulin dependent type 2 diabetes mellitus Obstructive sleep apnea on CPAP Orthostatic hypotension Thyroid nodule Surgical History Surgical History History of cataract extraction History of coronary artery bypass graft x 2 History of left-sided carotid endarterectomy History of partial thyroidectomy History of permanent cardiac pacemaker placement History of repair of rotator cuff History of right knee joint replacement Family History Family History Other Diabetes mellitus Heart disease Hypertension Social History Social History Social History: Has lived at assisted living for nearly a year. Healthcare power of claims attorney: Destiney Ma, daughter. Code status: Full code. Smoking packs per day: 1.5 Smoking cigarettes per day: 30.0 Years smoked: 24 Smoking pack-years: 36.00 Smoking status: Former smoker Tobacco type: cigarettes Smokeless tobacco user: chewing tobacco Alcohol intake: never Substance use: never Substance use type: does not use Additional living arrangements comments: Assisted living at [facility]. Additional occupation/education comments: Retired from the [employer]. Spiritual care concerns: No Exam Narrative: GENERAL: Well-appearing, well-nourished, and in no acute distress. HEAD: Normocephalic, ecchymosis and swelling lateral
--- NOTE | 2022-04-09 13:41 | ECG_ITS ---
Measurements Intervals [place] Rate: 71 P: -23 SC: 229 QRS: 37 QRSD: 122 T: 238 QT: 448 QTc: 489 Interpretive Statements ELECTRONIC ATRIAL PACEMAKER ELECTRONIC VENTRICULAR PACEMAKER APCS ABNORMAL RHYTHM ECG COMPARED TO ECG 04/03/2022 12:05:42 NO SIGNIFICANT CHANGES Electronically Signed On 04-10-2022 13:07:52 CDT by Yoon Keita M.D.
[2022-04-09 14:40] LABS: Basophils Absolute Auto 0.1 K/mm3 (0.0-0.1); Basophils Percent Auto 0.6 % (0.2-1.2); Eosinophils Absolute Auto 0.1 K/mm3 (0-0.3); Eosinophils Percent Auto 1.5 % (0-4.4); Hematocrit 40.2 % (42.0-52.0); Hemoglobin 13.2 g/dL (14.0-18.0); Immature Granulocyte Absolute 0.06 K/mm3 (0.00-0.031); Immature Granulocyte Percent A 0.6 % (0-0.5); Lymphocytes Absolute Auto 1.64 K/mm3 (0.9-3.2); Lymphocytes Percent Auto 17.4 % (18.3-44.2); Mean Corpuscular HGB Conc 32.8 g/dl (32-36); Mean Corpuscular Hemoglobin 31.2 pg (26-34); Mean Platelet Volume 10.5 fl (7.4-10.4); Monocytes Absolute Auto 1.1 K/mm3 (0.1-0.6); Monocytes Percent Auto 11.6 % (2.6-8.5); Neutrophils Absolute Auto 6.4 K/mm3 (1.3-6.7); Neutrophils Percent Auto 68.3 % (45.5-73.1); Platelet Count Result 219 k/mm3 (150-375); Red Blood Count 4.23 M/mm3 (4.6-6.20); Red Cell Distribution Width 13.4 % (11.5-14.5); White Blood Count 9.4 K/mm3 (4.5-10.0)
[2022-04-09 14:51] LABS: Alanine Aminotransferase 47 U/L (6-50); Albumin Level 3.5 g/dL (3.5-5.1); Alkaline Phosphatase 97 U/L (38-126); Anion Gap 9 mmol/L (8-16); Aspartate Amino Transferase 45 U/L (17-59); Bilirubin,Total 0.9 mg/dL (0.2-1.3); Blood Urea Nitrogen 26 mg/dL (9-20); Calcium 8.9 mg/dL (8.4-10.2); Carbon Dioxide 30 mmol/L (22-30); Chloride 100 mmol/L (98-107); Estimated CRCL calculation 31 ml/min; Estimated Glomerular Filt Rate 45; Glucose 147 mg/dL (65-110); Sodium 139 mmol/L (137-145)
[2022-04-09 15:02] LABS: Troponin I < 0.012 ng/mL (0.000-0.034)
[2022-04-09 15:12] LABS: Add Urine Microscopic? YES; Appearance Urine Clear (Clear); Bilirubin Urine Negative (Negative); Blood Urine Negative (Negative); Color Urine Yellow (Yellow); Glucose Urine UA 1+ mg/dL (Negative); Ketones Urine Negative (Negative); Leukocyte Esterase Ur Negative LEU/UL (Negative); Nitrate Urine Negative (Negative); Protein Urine 3+ mg/dL (Negative); RBC Urine 0-2 /hpf (0-2); Specific Grav Ur 1.016 (1.001-1.035); Squamous Epithelial Cell Urine Rare /hpf (Few); Urobilinogen Urine Negative mg/dL (<2.0); WBC Urine 0-3 /hpf
[2022-04-09 15:31] LABS: Troponin I < 0.012 ng/mL (0.000-0.034)
--- NOTE | 2022-04-09 17:00 | PM.IMHP ---
H&P: HPI History of Present Illness Date/Time: 04/09/22 17:00 Chief Complaint: Fall and questionable syncope. Narrative: This is a pleasant 86-year-old male with insulin-dependent diabetes, hypothyroidism, hypertension no longer on antihypertensives, orthostatic hypotension which has led to several falls, coronary artery disease, carotid artery disease, sleep apnea, chronic kidney disease, and other comorbidities who presented to the emergency department for evaluation after a fall and questionable syncopal episode. He is a fair historian but he has difficulties answering open-ended questions. His daughter Destiney is at bedside and she provides additional information, with the patient's permission. He lives in assisted living at [facility] and he is pretty self-sufficient with taking his medications however last week he was in the emergency department with some confusion at which time his systolic blood pressures were over 200 and she believes that he had taken extra doses of his midodrine that day. She has been keeping a closer eye on his medications since that time. In any event he got up from a seated position this afternoon and shortly thereafter he ?suddenly went down? striking the left side of his head. He does not think that he lost consciousness but cannot say for certain and he is unable to tell me whether not he had prodromall symptoms. In the emergency department his blood pressure was as high as 236/130 at which time he complained of a diffuse headache, mild blurry vision, nausea, and dry heaves. He seemed to have difficulties answering questions as well. CT of the head and neck as well as of the abdomen (he was tender to palpation on exam) were all negative for acute findings. He is being admitted to the ICU on a nicardipine drip for hypertensive emergency given his symptoms. At the time my evaluation his main complaint is that of the headache. He has not had chest pain or shortness of breath. He also denies focal weakness, paresthesias, vertigo, facial droop, dysarthria, and dysphagia. Of note, the patient's daughter has never seen his blood pressure this high. After he takes his midodrine the highest his systolic readings have ever been is 160s over 170s systolic. He takes a midodrine when he gets up in the morning and in mid afternoon. He has been told to take the midodrine right before bedtime as well which is unusual. Review of Systems Review of Systems: Twelve systems were reviewed. No fever, chills, or sweats. He was diagnosed with possible pneumonia last week when he was in the ER however imaging today seems to suggest that this area is most likely atelectasis and he gives no history to suggest active pulmonary infection at this time. It sounds as though he has a shuffling gait he is supposed to use a walker which he does a majority of the time though daughter things at times he gets up without using it ?he stumbles a lot.? Except as documented, all other systems were reviewed and are negative. [facility] Past Medical History Medical History (Updated 04/09/22 @ 22:55 by Rhea Vela PA-C) Asbestosis Benign prostatic hyperplasia Carotid stenosis Chronic anticoagulation Chronic kidney disease, stage 3 Coronary artery disease Deep venous thrombosis History of falling Hyperlipidemia Hypertension Hypothyroidism Insulin dependent type 2 diabetes mellitus Obstructive sleep apnea on CPAP Orthostatic hypotension Thyroid nodule Surgical History Surgical History (Updated 04/09/22 @ 22:50 by Rhea Vela PA-C) History of cataract extraction History of coronary artery bypass graft x 2 History of left-sided carotid endarterectomy History of partial thyroidectomy History of permanent cardiac pacemaker placement History of repair of rotator cuff History of right knee joint replacement Family History Family History (Updated 04/09/22 @ 22:50 by Rhea Vela PA-C) Other Diabetes mellitus Heart disease
--- NOTE | 2022-04-09 17:21 | PC.NURSE ---
Attempted to call report. Was told the RN taking this patient stepped off the floor to get a bed and will call me back.
[2022-04-09] MEDS: niCARdipine 20 MG/200 ML 20 MG/200 ML BAG 50 MG IV CONT ×2 (18:43→19:39)
--- NOTE | 2022-04-09 19:32 | ADMGEN ---
This patient, Carlos Zhou Jr., was admitted to Intensive Care Unit-2 AT 1902 FROM THE ED. Patient/family oriented to hospital policies and general routines including ID bracelet, bed and alarms, visiting hours, pain management, procedures, bathroom and other care routines, personal items, smoking policy, room service/diet, and visiting hours. Information on how to activate the Rapid Response Team has been discussed. Patient/Family are encouraged to report perceived risks to care and to ask questions if they do not understand what they are told or what they should do.
[2022-04-09] MEDS: FINASTERIDE 5 MG TABLET PO (23:33)
[2022-04-09] MEDS: ATORVASTATIN 40 MG TABLET PO (23:33)
[2022-04-10] VITALS (28 sets, daily range): BP systolic 122–191; BP diastolic 56–98; PULSE 63–80; RESP 14–22; TEMP 36.6–37.1; O2SAT 93–99; BMI 33.3
[2022-04-10] MEDS: niCARdipine 20 MG/200 ML 20 MG/200 ML BAG 25 MG IV CONT (01:35)
[2022-04-10 04:17] LABS: Hematocrit 38.6 % (42.0-52.0); Hemoglobin 12.4 g/dL (14.0-18.0); Mean Corpuscular HGB Conc 32.1 g/dl (32-36); Mean Corpuscular Hemoglobin 31.4 pg (26-34); Mean Corpuscular Volume 97.7 fl (80-100); Mean Platelet Volume 10.6 fl (7.4-10.4); Platelet Count Result 200 k/mm3 (150-375); Red Blood Count 3.95 M/mm3 (4.6-6.20); Red Cell Distribution Width 13.3 % (11.5-14.5); White Blood Count 9.7 K/mm3 (4.5-10.0)
[2022-04-10 04:26] LABS: Alanine Aminotransferase 42 U/L (6-50); Albumin Level 3.1 g/dL (3.5-5.1); Alkaline Phosphatase 79 U/L (38-126); Anion Gap 5 mmol/L (8-16); Aspartate Amino Transferase 37 U/L (17-59); Bilirubin,Total 1.1 mg/dL (0.2-1.3); Blood Urea Nitrogen 26 mg/dL (9-20); Calcium 8.4 mg/dL (8.4-10.2); Carbon Dioxide 27 mmol/L (22-30); Chloride 103 mmol/L (98-107); Estimated CRCL calculation 31 ml/min; Estimated Glomerular Filt Rate 45; Glucose 138 mg/dL (65-110); Magnesium 1.6 mg/dL (1.6-2.3); Potassium 3.7 mmol/L (3.4-5.0); Sodium 135 mmol/L (137-145)
[2022-04-10 05:28] LABS: Hemoglobin A1C 6.9 % (<5.7)
[2022-04-10] MEDS: LEVOTHYROXINE SODIUM 75 MCG TABLET PO (05:50)
[2022-04-10] MEDS: LEVOTHYROXINE SODIUM 100 MCG TABLET PO (05:50)
--- NOTE | 2022-04-10 08:00 | ECHO_ITS ---
Patient Info Name: Carlos Zhou Age: 86 years : 1935 Gender: Male Ht: 67 in Wt: 176 lbs BSA: 1.96 m2 HR: 66 bpm BP: 148 / 61 mmHg Heart Rhythm: Sinus Rhythm Technical Quality: Fair Exam Date: 04/10/2022 7:47 AM Exam Location: [facility] Patient Status: Outpatient Admit Date: 04/09/2022 Staff Ordering Physician: Rhea Vela PA-C Photo Mask Processor: Keyla Mcpherson RDCS Attending Provider: Chris Paredes MD Referring Physician: Mirian PANDEY; Exam Type: CA echo dop color flow w con Study Info Indications - syncope, carotid artery disease Complete two-dimensional, color flow and Doppler transthoracic echocardiogram is performed with contrast to opacify the left ventricle and to improve the deliniation of the left ventricle endocardial borders. Contrast/Agitated Saline Contrast/Ag. Saline: Definity Amount: 3.00 ml Administered By: Keyla Mcpherson RDCS Existing IV Access: Yes IV Access Condition: patent with no signs of infiltration Summary 1. Left ventricular systolic function is normal, estimated at 60-65%. 2. There is mildly increased left ventricular wall thickness. 3. The left ventricular diastolic function is grade I diastolic dysfunction. 4. Right ventricular systolic function is normal. 5. The aortic root size at the sinus of Valsalva is dilated. Left Ventricle Left ventricular chamber dimension is normal. Left ventricular systolic function is normal, estimated at 60-65%. There is mildly increased left ventricular wall thickness. The left ventricular diastolic function is grade I diastolic dysfunction. Right Ventricle Right ventricular chamber dimension is normal. Right ventricular systolic function is normal. Left Atria Left atrial chamber dimension is normal. Right Atria Right atrial chamber dimension is normal. Atrial Septum Intact interatrial septum visualized by color flow imaging. Aortic Valve The aortic valve is not well visualized. There is no aortic valve stenosis. There is no aortic valve regurgitation. There is mild aortic valve calcification. Pulmonic Valve The pulmonic valve is not well visualized. Mitral Valve The mitral valve has normal leaflets. There is no mitral valve stenosis. There is no mitral valve regurgitation. Tricuspid Valve The tricuspid valve leaflets are not well visualized. There is trace tricuspid valve regurgitation. Pericardium/Pleural There is no pericardial effusion. Aorta The aortic root size at the sinus of Valsalva is dilated. Left Ventricular Outflow Tract Name Value Normal LVOT 2D LVOT Diameter 2.01 cm LVOT Doppler LVOT Peak Gradient 3 mmHg LVOT Mean Gradient 1 mmHg LVOT VTI 15.58 cm LVOT VTI/AV VTI Ratio 0.71 LVOT Stroke Volume 49.64 ml LVOT CO 3.31 l/min LVOT CI 1.69 L/min/m2 Mitral Valve
[2022-04-10] MEDS: PERFLUTREN LIPID MICROSPHERES 1.5 ML VIAL DILUTED TO 10 ML TOTAL VOLUME IV PUSH (08:12)
--- NOTE | 2022-04-10 08:12 | IVDEFINITY ---
Prior to administration of IV Definity the patient was educated on the risks and benefits of the imaging enhancing agent including potential adverse side effects. The patient verbalized understanding. Allergies were verified. No exclusion criteria were identified and at least one of the following inclusion criteria were met: 1) physician request, 2) patient technically difficult to image (per the [place] [employer] guidelines of two or more segments not discernable within the apical view), or 3) questionable left ventricular function. ?
[2022-04-10] MEDS: CALCIUM CARBONATE (OSCAL) 500 MG TABLET PO (08:42)
[2022-04-10] MEDS: TAMSULOSIN HCL 0.4 MG CAPSULE PO (08:42)
[2022-04-10] MEDS: polyethylene glycoL 3350 17 GM POWD.PACK PO (08:42)
[2022-04-10] MEDS: CITALOPRAM HYDROBROMIDE 20 MG TABLET PO (08:42)
[2022-04-10] MEDS: ASPIRIN 81 MG ENTERIC TABLET PO (08:42)
[2022-04-10 08:51] LABS: Glucose Point of Care 144 mg/dl (65-105)
--- NOTE | 2022-04-10 09:13 | WPDCNINT ---
Assessment and Plan Assessment and plan (1) Hypertensive urgency: Code(s): I16.0 - Hypertensive urgency Status: Acute Assessment and Plan: Patient presented with syncope, fall hitting his head on the ground. -blood pressures in the ER with 236/130 mm Hg -patient also has a history of orthostatic hypotension on midodrine 10 mg 3 times a day -patient may have taken additional dose of midodrine according to his daughter. -currently on nicardipine infusion -target systolic blood pressures 160-180 mmHg, wean to off if SBP less than 160 mmHg -cardiology has been consulted -it may be a little tricky to maintain his blood pressures given orthostatic hypotension secondary to possible autonomic dysfunction along with hypertensive urgency (2) Fall from ground level: Code(s): W18.30XA - Fall on same level, unspecified, initial encounter Status: Acute Assessment and Plan: CT scan of the brain did not show any acute intracranial abnormality -patient is on Eliquis at home -continue to monitor neuro checks -will have his pacemaker interrogated -carotid Dopplers have been ordered -unknown etiology of the fall, question mechanical (3) Syncope: Code(s): R55 - Syncope and collapse Status: Acute Assessment and Plan: As above (4) Orthostatic hypotension: Code(s): I95.1 - Orthostatic hypotension Status: Acute Assessment and Plan: Patient has history of orthostatic hypotension, on midodrine 5 mg p.o. t.i.d. Currently midodrine is on hold -will discuss with Cardiology (5) Insulin dependent type 2 diabetes mellitus: Code(s): E11.9 - Type 2 diabetes mellitus without complications; Z79.4 - splitter tender (current) use of insulin Status: Acute Assessment and Plan: Continue sliding scale insulin Accu-Cheks along with Lantus (6) Obstructive sleep apnea on CPAP: Code(s): G47.33 - Obstructive sleep apnea (adult) (pediatric); Z99.89 - Dependence on other enabling machines and devices Status: Acute Assessment and Plan: CPAP at night (7) Chronic anticoagulation: Code(s): Z79.01 - splitter tender (current) use of anticoagulants Status: Acute Assessment and Plan: Apixaban is on hold (8) Chronic kidney disease, stage 3: Code(s): N18.30 - Chronic kidney disease, stage 3 unspecified Status: Acute Assessment and Plan: Creatinine is at baseline -continue oral intake Plan DVT prophylaxis: Hold apixaban Stress ulcer prophylaxis: Not indicated Nutrition: Heart healthy diet Code Status: Full code Critical Care Time Spent: 44 minutes Due to a high probability of clinically significant, life threatening deterioration, the patient required my highest level of preparedness to intervene emergently and I personally spent this critical care time directly and personally managing the patient. This critical care time included obtaining a history; examining the patient; pulse oximetry; ordering and review of studies; arranging urgent treatment with development of a management plan; evaluation of patient's response to treatment; frequent reassessment; and discussions with other providers. It was exclusive of separately billable procedures and treating other patients and teaching time. Please see Assessment and Plan section and the rest of the note for further information on patient assessment and treatment Civil Estimator Consult Note Consult date: 04/10/22 Reason for consult: Reason for consult: Hypertensive urgency, Fall, ? syncope HPI: Carlos Zhou JrAndrea is a 86 year old male DM, hypothyroidism, orthostatic hypotension with several falls - on midodrine, h/o HTN not on meds, CAD, carotid disease, CKD, sleep apnea, presented to the ED on 04/09/2022 for evaluation for a fall and possible syncope. Pt was found to have a SBP of 236/130 on admission. Per records patient did complain headache, blurring vision, nausea and dry heaves. CT s
--- NOTE | 2022-04-10 10:52 | PM.IMPN ---
Progress Note: A&P Assessment and Plan (1) Hypertensive emergency: Code(s): I16.1 - Hypertensive emergency Status: Acute Assessment and Plan: blood pressure looks much better. Denies any complaints today currently on nicardipine drip managed per ICU (2) Fall from ground level: Code(s): W18.30XA - Fall on same level, unspecified, initial encounter Status: Acute Assessment and Plan: The patient reports that he suddenly fell to the ground though he does not recall having a prodrome prior to and he is not certain but does not think that he lost consciousness however I am not so sure. Interrogate pacemaker. Carotid Doppler ultrasounds ordered. Continue to monitor orthostatic vital signs. Initiate fall precautions. (3) Syncope: Code(s): R55 - Syncope and collapse Status: Acute Assessment and Plan: As above I am wanting of the patient may have had a syncopal episode. Unlikely that it was due to orthostatic hypotension given his markedly elevated blood pressures. Carotid Doppler ultrasounds have been ordered. Interrogate pacemaker. (4) Orthostatic hypotension: Code(s): I95.1 - Orthostatic hypotension Status: Acute Assessment and Plan: For now we will hold his midodrine. (5) Chronic kidney disease, stage 3: Code(s): N18.30 - Chronic kidney disease, stage 3 unspecified Status: Acute Assessment and Plan: Stable on review of previous labs. (6) Insulin dependent type 2 diabetes mellitus: Code(s): E11.9 - Type 2 diabetes mellitus without complications; Z79.4 - intermediate manager (current) use of insulin Status: Acute Assessment and Plan: Continue basal insulin. Initiate sliding scale insulin, Accu-Cheks, and hypoglycemic protocol. (7) History of falling: Code(s): Z91.81 - History of falling Status: Acute Assessment and Plan: Attributed to orthostatic hypotension. It does not sound as though he always uses his walker either. Would benefit from PT/OT. (8) Hypothyroidism: Code(s): E03.9 - Hypothyroidism, unspecified Status: Acute Assessment and Plan: Continue levothyroxine and check TSH. Nodule noted on the left neck near his CEA incision is not tender and will need outpatient follow-up. (9) Obstructive sleep apnea on CPAP: Code(s): G47.33 - Obstructive sleep apnea (adult) (pediatric); Z99.89 - Dependence on other enabling machines and devices Status: Acute Assessment and Plan: CPAP will be provided for the patient to use while hospitalized. (10) Coronary artery disease: Code(s): I25.10 - Atherosclerotic heart disease of [place] coronary artery without angina pectoris Status: Acute Assessment and Plan: No chest pain. Troponins negative. EKG shows a paced rhythm. Continue aspirin and statin. (11) Chronic anticoagulation: Code(s): Z79.01 - halfway (current) use of anticoagulants Status: Acute Assessment and Plan: Apixaban on hold for now given fall with head trauma and severely elevated blood pressures. Subjective Date/time seen: 04/10/22 10:52 no new complaints Exam Narrative: General: Well-developed, nontoxic-appearing male sitting at the side of the bed. Weight: 80 kilograms. BMI: 27.6. HEENT: Small bruising on the left upper eyelid. PERRL, EOMI. Sclera anicteric. Tacky mucous membranes. Neck: Supple. Left carotid endarterectomy scar and partial thyroidectomy scar noted. There is a firm subcutaneous nodule near the mid line of the incision for his CEA, not tender to palpation. Respiratory: Respirations are nonlabored and lungs are clear to auscultation. Cardiovascular: Regular rate and rhythm with S1-S2. Gastrointestinal: Abdomen is soft, nontender, and nondistended with positive bowel sounds. Skin: Warm and dry. Scattered bruising on the upper extremities. Extremities: No cyanosi
--- NOTE | 2022-04-10 11:13 | PM.CNCAR ---
Assessment and Plan Assessment and plan (1) Hypertensive urgency: Code(s): I16.0 - Hypertensive urgency Status: Acute Assessment and Plan: history of hypertension in the past, off blood pressure medications for the past 2 years due to orthostasis. However systolic blood pressure has not been terribly uncontrolled in general. Recent problems with severe hypertension. On this admission it does not appear that the patient took extra midodrine a blood pressure was still extremely high. Trying low-dose amlodipine, 2.5 mg daily follow orthostatics Resume midodrine tmr, lower dose, 2.5 mg TID, if still orthostatic. (2) Orthostatic hypotension: Code(s): I95.1 - Orthostatic hypotension Status: Acute Assessment and Plan: long history of orthostatic hypotension thought to be due to autonomic dysfunction, secondary to diabetes. Cont compression stockings Keep HOB up at 30 degrees Cont hydration (3) CAD (coronary artery disease): Code(s): I25.10 - Atherosclerotic heart disease of [place] coronary artery without angina pectoris Status: Acute Assessment and Plan: history of CAD and CABG, stable. Followed by [facility] History of pacemaker followed remotely Takes low dose Eliquis, as well as ASA, for h/o CAD/CABG and remote DVT. May need ot discontinue ELiquis if pt cont to have falls. (4) Confusion: Code(s): R41.0 - Disorientation, unspecified Status: Acute Assessment and Plan: Worsening confusion noted recently History of Present Illness History of Present Illness Consult date/time: 04/10/22 11:13 Reason For Visit: Syncope/Hypertensive Emergency Narrative: Carlos Zhou is an 86 y.o. male whom I was asked to see at the request of Dr. Haque for my advice and opinion regarding his orthostatic hypotension and hypertension, in consultation. H/O CAD and CABG, insulin-dependent diabetes, hypothyroidism, hypertension no longer on antihypertensives, orthostatic hypotension which has led to several falls on midodrine, coronary artery disease, carotid artery disease, sleep apnea, chronic kidney disease, and other comorbidities. H/O pacemaker implant 05/2020 followed by [facility] Lugo, checked remotely. However, this did not help w/ his falls and he was found to be orthostatic, and placed on midodrine. He has been doing pretty well for a while. The patient has been on midodrine for over year for his orthostatic hypotension. Has been off BP meds for 2 years. Teried to reduce the midodrine in the past, but pt had more orthostasis. Last fall was about 2 months ago, but sounds like a mechanical fall. Normally after he takes his midodrine his blood pressures run in the 160s to 170 systolic. However,? on April 03 the came to the emergency room with confusion and lightheadedness and a blood pressure of 254/74. He was treated for pneumonia discharged on his usual midodrine 5 mg t.i.d.. His daughter thinks he had taken extra mitodrine prior to that admission. He was brought to the emergency room last night after he got up from a seated position yesterday and got dizzy and suddenly went down and hitting his head. He had only taken his morning meds, and had not doubled up on his meds. In the emergency room his blood pressure was as high as 236/130. He was admitted to the ICU on a nicardipine drip for his severe hypertension. Apparently the patient's daughter is concerned that he may have taken his medications appropriately, perhaps taking His morning medications later than he should. He's also more confused than usual. Good appetite recently. Most of the history was obtained from the patient's chart and calling his daughter, Destiney, since he is unreliable historian. Discussed w/ Dr. Haque. Review of Systems Constitutional: Constitutional: Denies fever(s) Eyes: Eyes: Reports no additional eye complaints ENT: Comments:
--- NOTE | 2022-04-10 13:27 | WPDNEURCNPN ---
Assessment and Plan Assessment and plan (1) Confusion: Code(s): R41.0 - Disorientation, unspecified Status: Acute (2) Carotid stenosis: Code(s): I65.29 - Occlusion and stenosis of unspecified carotid artery Status: Acute (3) Hypertensive emergency: Code(s): I16.1 - Hypertensive emergency Status: Acute Plan Carlos Zhou Jr. is a 86 year old male with a history of HLD, orthostatic hypotension, CAD s/p pacemaker (on Eliquis), hypothyroidism, ANTON currently admitted to the ICU due to hypertensive emergency. Had an episode today of garbbled speech and altered mental status, still not completely at baseline. Carotid Doppler showed evidence of thrombosed vessel in the left common carotid artery, although unclear if extracranial or intracranial, as well as stenosis of the right subclavian and bidirectional flow in the R vertebral artery artery suggesting subclavian steal syndrome. Concern for stroke vs PRES (given severe HTN at presentation). - Recommend CTA head and neck - Recommend MRI brain to evaluate for stroke vs PRES - Patient has pacemaker -- may need higher level of care for detailed imaging as well as possible intervention (neurointerventionalist vs vascular surgery), depending on results of CTA - Consider routine EEG if concerns for seizure-like activity Consult date: 04/10/22 Time Seen: 13:27 Reason for consult: Altered mental status HPI: Carlos Zhou Jr. is a 86 year old male with a history of HLD, orthostatic hypotension, CAD s/p pacemaker (on Eliquis), hypothyroidism, ANTON currently admitted to the ICU due to hypertensive emergency. Patient presented to [place] ED on 04/09/22 after sustaining a fall. His BP on admission was 236/130. He was also having headache and blurry vision at the time. CT head was done which was negative for acute process. He was started on nicardipine drip and transferred to ICU for further management. Today patient had an episode of slurred speech and altered mental status. He had a repeat CT head done which was negative for hemorrhage. Carotid doppler showed possible thrombosed vessel arising from the left common carotid artery, unclear whether this represents the ICA or ECA. and bidirectional flow in the right vertebral artery which suggests subcutaneous steal with high-grade stenosis of the right subclavian artery proximal to the takeoff of the right femoral artery . Patient back from CT at time of evaluation. Per RN, speech has improved, but he is not completely back to his baseline. Review of Systems Review of Systems: ROS unobtainable: Yes unobtainable due to mental status PMFSH Past Medical History Medical History Asbestosis Benign prostatic hyperplasia Carotid stenosis Chronic anticoagulation Chronic kidney disease, stage 3 Coronary artery disease Deep venous thrombosis History of falling Hyperlipidemia Hypertension Hypothyroidism Insulin dependent type 2 diabetes mellitus Obstructive sleep apnea on CPAP Orthostatic hypotension Thyroid nodule Surgical History Surgical History History of cataract extraction History of coronary artery bypass graft x 2 History of left-sided carotid endarterectomy History of partial thyroidectomy History of permanent cardiac pacemaker placement History of repair of rotator cuff History of right knee joint replacement Family History Family History Other Diabetes mellitus Heart disease Hypertension Social History Social History Social History: Has lived at assisted living for nearly a year. Healthcare power of tax attorney: Destiney Ma, daughter. Code status: Full code. Smoking packs per day: 1.5 Smoking cigarettes per day: 30.0 Years smoked: 24 Smoking pack-years: 36.
--- NOTE | 2022-04-10 14:27 | P.PNCROSS_ITS ---
Event Note Event Note Event Note: I was called by the bedside RN as patient was confused, dysarthric speech, she thought he has slurring of speech also. I went into the room and evaluated the patient, patient was confused, was not answering questions as he was doing this morning. He did follow my commands all extremities. No facial droop was noted, pupils were equal and reactive, right pupil is surgical. Strength was 5/5 in all extremities bilaterally. -04/10/[address] brain: Stable mild nonspecific cerebral white matter disease, which likely represents chronic small vessel ischemic disease. -04/10/2022 ultrasound carotid Dopplers: 1. <50% stenosis in the right internal carotid artery. 2. Likely thrombosed vessel arising from the left common carotid artery, unclear whether this represents the ICA or ECA. Recommend further evaluation with carotid CT angiogram. 3. Bidirectional flow in the right vertebral artery which suggests subcutaneous steal with high-grade stenosis of the right subclavian artery proximal to the takeoff of the right femoral artery. This could also be further evaluated at the same time with carotid CT angiogram. Discussed with neurology, recommended CT angio of the brain and neck, also recommended MRI, also may require higher level of care for neuro interventionalist versus vascular surgery depending on the CTA results. I discussed with Destiney, patient's daughter updated her with the above events and results of the CT brain. I did discuss with her regarding patient requiring CT angio of the brain and neck. I also discussed with her that patient may require MRI per Neurology which is not done at [facility] since he has a pacemaker. She requested that if he is being transferred to a larger center she would like him to go to [facility] in [facility] or [facility] in [facility]. I called [facility] in [facility] and spoke to Nayana at the patient transfer line, she stated that they are unable to do MRI on patients will have pacemakers I then called [facility] and spoke to Yuli, they currently do not have any ICU beds. She did take all the information of the patient, and will call back once they have bed availability I also called [facility] in [facility], discussed with Lakisha, there MRI department wanted information regarding the pacemaker, she has let the bedside ICU know what they require and we are in the process off acquiring all that information if available at all.
[2022-04-10 15:18] LABS: Glucose Point of Care 142 mg/dl (65-105)
--- NOTE | 2022-04-10 16:23 | PC.NURSE ---
Patients pacemaker information: Chronic Manager: [employer] Self Representation Document Preparation Model: Timbo MRI 2272 Serial: [id number] Implant Date: 06-08-2020 A lead Chronic Manager: [employer] Model: Tendril STS 2087TC / 46 cm Serial: [id number] Implant Date; 06-08-2020 V lead: Chronic Manager: [employer] Model: Tendril STS 2087TC / 52 cm Serial: [id number] Implant Date; 06-08-2020
[2022-04-10 18:22] LABS: Glucose Point of Care 135 mg/dl (65-105)
[2022-04-10 20:29] LABS: Glucose Point of Care 137 mg/dl (65-105)
[2022-04-10] MEDS: FINASTERIDE 5 MG TABLET PO (20:30)
[2022-04-10] MEDS: ATORVASTATIN 40 MG TABLET PO (20:30)
[2022-04-10] MEDS: INSULIN GLARGINE (*BKC) 100 UNITS/ML 15 UNITS SUB-Q (20:30)
[2022-04-11] VITALS (30 sets, daily range): BP systolic 129–200; BP diastolic 55–103; PULSE 60–632; RESP 14–23; TEMP 36.6–37.1; O2SAT 91–100
[2022-04-11 04:28] LABS: Basophils Absolute Auto 0.1 K/mm3 (0.0-0.1); Basophils Percent Auto 0.7 % (0.2-1.2); Eosinophils Absolute Auto 0.3 K/mm3 (0-0.3); Eosinophils Percent Auto 2.9 % (0-4.4); Hematocrit 38.6 % (42.0-52.0); Hemoglobin 12.4 g/dL (14.0-18.0); Immature Granulocyte Absolute 0.05 K/mm3 (0.00-0.031); Immature Granulocyte Percent A 0.6 % (0-0.5); Lymphocytes Absolute Auto 2.54 K/mm3 (0.9-3.2); Lymphocytes Percent Auto 28.3 % (18.3-44.2); Mean Corpuscular HGB Conc 32.1 g/dl (32-36); Mean Corpuscular Volume 96.5 fl (80-100); Mean Platelet Volume 10.5 fl (7.4-10.4); Monocytes Absolute Auto 1.2 K/mm3 (0.1-0.6); Monocytes Percent Auto 13.5 % (2.6-8.5); Neutrophils Absolute Auto 4.9 K/mm3 (1.3-6.7); Platelet Count Result 201 k/mm3 (150-375); Red Cell Distribution Width 13.5 % (11.5-14.5)
[2022-04-11] MEDS: hydrALAZINE HCL 20 MG/ML VIAL 10 MG IV PUSH ×2 (04:30→15:06)
[2022-04-11 04:45] LABS: Alanine Aminotransferase 40 U/L (6-50); Albumin Level 3.2 g/dL (3.5-5.1); Alkaline Phosphatase 73 U/L (38-126); Anion Gap 5 mmol/L (8-16); Aspartate Amino Transferase 42 U/L (17-59); Bilirubin,Total 1.4 mg/dL (0.2-1.3); Blood Urea Nitrogen 28 mg/dL (9-20); Calcium 8.5 mg/dL (8.4-10.2); Carbon Dioxide 30 mmol/L (22-30); Chloride 104 mmol/L (98-107); Estimated CRCL calculation 37 ml/min; Estimated Glomerular Filt Rate 45; Glucose 107 mg/dL (65-110); Magnesium 1.8 mg/dL (1.6-2.3); Phosphorus 3.7 mg/dL (2.5-4.5); Sodium 139 mmol/L (137-145)
[2022-04-11] MEDS: LEVOTHYROXINE SODIUM 100 MCG TABLET PO (05:09)
[2022-04-11] MEDS: LEVOTHYROXINE SODIUM 75 MCG TABLET PO (05:09)
[2022-04-11] MEDS: niCARdipine 20 MG/200 ML 20 MG/200 ML BAG 50 MG IV CONT (06:14)
--- NOTE | 2022-04-11 06:19 | PC.NURSE ---
Restart Nicardipine drip per Dr. calderon for persistent BP > 180
[2022-04-11] MEDS: amLODIPine BESYLATE 2.5 MG TABLET PO ×2 (08:16→17:52)
[2022-04-11] MEDS: ASPIRIN 81 MG ENTERIC TABLET PO (08:17)
[2022-04-11] MEDS: CALCIUM CARBONATE (OSCAL) 500 MG TABLET PO (08:17)
[2022-04-11] MEDS: TAMSULOSIN HCL 0.4 MG CAPSULE PO (08:17)
[2022-04-11] MEDS: polyethylene glycoL 3350 17 GM POWD.PACK PO (08:17)
[2022-04-11] MEDS: CITALOPRAM HYDROBROMIDE 20 MG TABLET PO (08:17)
--- NOTE | 2022-04-11 08:39 | WPDINTPN ---
Progress Note: A&P Assessment and Plan (1) Confusion: Code(s): R41.0 - Disorientation, unspecified Status: Acute Assessment and Plan: 04/10: Pt had episode of confusion, 04/10/[address] brain:?Stable mild nonspecific cerebral white matter disease, which likely represents chronic small vessel ischemic disease. -04/10/2022 ultrasound carotid Dopplers: 1. <50% stenosis in the right internal carotid artery. 2. Likely thrombosed vessel arising from the left common carotid artery, unclear whether this represents the ICA or ECA. Recommend further evaluation with carotid CT angiogram. 3. Bidirectional flow in the right vertebral artery which suggests subcutaneous steal with high-grade stenosis of the right subclavian artery proximal to the takeoff of the right femoral artery. This could also be further evaluated at the same time with carotid CT angiogram. Appreciate Neurology evaluation and recommendations - have tried to transfer pt to [facility] system in [place] and [facility] in [place]. no beds available (2) Hypertensive urgency: Code(s): I16.0 - Hypertensive urgency Status: Acute Assessment and Plan: Patient presented with syncope, fall hitting his head on the ground. -blood pressures in the ER with 236/130 mm Hg -patient also has a history of orthostatic hypotension on midodrine 10 mg 3 times a day -patient may have taken additional dose of midodrine -currently on nicardipine infusion -target systolic blood pressures 160-180 mmHg, wean to off if SBP less than 160 mmHg -cardiology has been consulted Required one dose of hydralazine overnight - start amlodipine 2.5 mg daily -it may be a little tricky to maintain his blood pressures given orthostatic hypotension secondary to possible autonomic dysfunction along with hypertensive urgency (3) Fall from ground level: Code(s): W18.30XA - Fall on same level, unspecified, initial encounter Status: Acute Assessment and Plan: CT scan of the brain did not show any acute intracranial abnormality -patient is on Eliquis at home, hold for now -continue to monitor neuro checks - pacemaker interrogated -carotid Dopplers as above -unknown etiology of the fall, question mechanical (4) Syncope: Code(s): R55 - Syncope and collapse Status: Acute Assessment and Plan: as above (5) Orthostatic hypotension: Code(s): I95.1 - Orthostatic hypotension Status: Acute Assessment and Plan: Patient has history of orthostatic hypotension, on midodrine 5 mg p.o. t.i.d. Currently midodrine is on hold -d/w cardiology (6) Insulin dependent type 2 diabetes mellitus: Code(s): E11.9 - Type 2 diabetes mellitus without complications; Z79.4 - bung driver (current) use of insulin Status: Acute Assessment and Plan: Continue sliding scale insulin Accu-Cheks along with Lantus (7) Obstructive sleep apnea on CPAP: Code(s): G47.33 - Obstructive sleep apnea (adult) (pediatric); Z99.89 - Dependence on other enabling machines and devices Status: Acute Assessment and Plan: CPAP at night (8) Chronic anticoagulation: Code(s): Z79.01 - correction (current) use of anticoagulants Status: Acute Assessment and Plan: Apixaban is on hold (9) Chronic kidney disease, stage 3: Code(s): N18.30 - Chronic kidney disease, stage 3 unspecified Status: Acute Assessment and Plan: Creatinine is at baseline -continue oral intake Plan DVT prophylaxis:? Hold apixaban Stress ulcer prophylaxis:? Not indicated Nutrition:? Heart healthy diet 04/10: D/w daughter Destiney and updated her re: pt's confusion and her radiology reports and possible transfer to which she requested pt be transferred to [facility]. Code Status:? Full code Critical Care Time Spent:? 34 minutes ?Due to a high probability of clinically significant, life threatening deterioration, the patient required my highes
--- NOTE | 2022-04-11 09:48 | PCOTNOTE ---
Per RN, patient's BP high this AM and requested to try back later to see patient for OT. Will continue plan of care.
--- NOTE | 2022-04-11 11:42 | PC.NURSE ---
patient's daughter Destiney called for update; updated her about his nicardipine drip getting restarted overnight but is off again now after he's had his morning medications; daughter expressed concerns about wanting an update from customs agent and pt still not getting his donepezil; message was passed to customs agent
[2022-04-11 12:27] LABS: Glucose Point of Care 189 mg/dl (65-105)
[2022-04-11] MEDS: DONEPEZIL HCL 5 MG TABLET PO (13:10)
[2022-04-11] MEDS: ACETAMINOPHEN 325 MG TABLET 650 MG PO (13:15)
--- NOTE | 2022-04-11 13:41 | PM.IMPN ---
Progress Note: A&P Assessment and Plan (1) Confusion: Code(s): R41.0 - Disorientation, unspecified Status: Acute Assessment and Plan: Patient had an episode of confusion. The following procedures performed on 04/10: CT brain:?Stable mild nonspecific cerebral white matter disease, which likely represents chronic small vessel ischemic disease. Carotid US: <50% stenosis in the right internal carotid artery; Likely thrombosed vessel arising from the left common carotid artery, unclear whether this represents the ICA or ECA; Bidirectional flow in the right vertebral artery which suggests subcclav steal with high-grade stenosis of the right subclavian artery proximal to the takeoff of the right femoral artery. Soft tissue neck CT: Fat stranding in left neck anterolateral to the carotid bifurcation, likely scarring from carotid endarterectomy. Head/Neck CT: 45% right and 32% left ICA stenosis. 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 Mental status back to normal. Appreciate Neurology evaluation and recommendations. Contineu ASA. Consider TIA. Add Plavix? Trying to transfer pt to [facility] , [facility] in [place] and [facility] [place]. no beds available (2) Hypertensive urgency: Code(s): I16.0 - Hypertensive urgency Status: Acute Assessment and Plan: Patient presented with syncope, fall hitting his head on the ground. BP in the ER was 236/130 mm Hg. Patient also has a history of orthostatic hypotension on midodrine 10 mg TID and he may have taken additional dose of midodrine. He remains on nicardipine infusion with target systolic blood pressures 160-180 mmHg. Cardiology consulted and appreciate their input. Low-dose Norvasc has been started. Continue to monitor blood pressure closely in the ICU and wean nicardipine as tolerated. Appreciate roof truss detailer input. (3) Syncope: Code(s): R55 - Syncope and collapse Status: Acute Assessment and Plan: CT scan of the brain did not show any acute intracranial abnormality. Patient is on Eliquis at home which is on hold for now. Continue to monitor neuro checks. PM interrogation ordered. Work-up otherwise as above. PT/OT (4) Fall from ground level: Code(s): W18.30XA - Fall on same level, unspecified, initial encounter Status: Acute Assessment and Plan: As above (5) Orthostatic hypotension: Code(s): I95.1 - Orthostatic hypotension Status: Acute Assessment and Plan: Patient has history of orthostatic hypotension on midodrine 5 mg p.o. t.i.d. Midodrine on hold. Monitor closely. As above (6) Insulin dependent type 2 diabetes mellitus: Code(s): E11.9 - Type 2 diabetes mellitus without complications; Z79.4 - cabinet maker (current) use of insulin Status: Acute Assessment and Plan: A1c 6.9. The patient's blood glucose was reviewed on 04/11 Glucose remains reasonably well controlled. Continue AccuCheks covering with sliding scale. Hypoglycemia protocol available as needed. Continue current medications. (7) Obstructive sleep apnea on CPAP: Code(s): G47.33 - Obstructive sleep apnea (adult) (pediatric); Z99.89 - Dependence on other enabling machines and devices Status: Acute Assessment and Plan: Stable. Continue CPAP at night and with naps (8) Chronic anticoagulation: Code(s): Z79.01 - cabinet maker (current) use of anticoagulants Status: Acute Assessment and Plan: Related to DVT. Apixaban is on hold. (9) Chronic kidney disease, stage 3: Code(s): N18.30 - Chronic kidney disease, stage 3 unspecified Status: Acute Assessment and Plan: Creatinine is at baseline at 1.5. Continue to monitor Plan DVT prophylaxis:? Hold apixaban Stress ulcer prophylaxis:? Not indicated Nutrition:? Heart healthy diet Subjective Date/time seen: 04/11/22 13:41
--- NOTE | 2022-04-11 14:25 | PCPTNOTE ---
The patient treatment was not able to be completed today due to patient's increased BP. RN spoke to physician and physician requested therapy not treat patient this afternoon. Will plan to continue treatment per plan of care.
--- NOTE | 2022-04-11 14:41 | WPDNEUROPN ---
Progress Note: A&P Assessment and Plan (1) Confusion: Code(s): R41.0 - Disorientation, unspecified Status: Acute (2) Dysphasia: Code(s): R47.02 - Dysphasia Status: Acute (3) Hypertensive emergency: Code(s): I16.1 - Hypertensive emergency Status: Acute (4) Carotid stenosis: Code(s): I65.29 - Occlusion and stenosis of unspecified carotid artery Status: Acute (5) Insulin dependent type 2 diabetes mellitus: Code(s): E11.9 - Type 2 diabetes mellitus without complications; Z79.4 - lamp decorator (current) use of insulin Status: Acute (6) Hyperlipidemia: Code(s): E78.5 - Hyperlipidemia, unspecified Status: Acute Plan Carlos Zhou Jr. is a 86 year old male with a history of HLD, orthostatic hypotension, CAD s/p pacemaker, hypothyroidism, ANTON currently admitted to the ICU due to hypertensive emergency. Had an episode on 04/10/22 of garbbled speech and altered mental status, still not completely at baseline on my evaluation today. Carotid Doppler showed evidence of thrombosed vessel in the left common carotid artery, as well as stenosis of the right subclavian and bidirectional flow in the R vertebral artery artery suggesting subclavian steal syndrome. CTA showed 45% stenosis of proximal R ICA and 32% stenosis of proximal L ICA, without any evidence of significant intracranial stenosis. Concern for stroke vs PRES (given severe HTN at presentation). Repeat CT head today did not reveal any new hypodensities today. - Recommend MRI brain to evaluate for stroke vs PRES -- will need higher level of care for MRI given patient's pacemaker - Consider routine EEG if concerns for seizure-like activity - Continue ASA and Lipitor Subjective Date/time seen: 04/11/22 14:41 Interval history: Carlos Zhou Jr. is a 86 year old male with a history of HLD, orthostatic hypotension, CAD s/p pacemaker (on Eliquis), hypothyroidism, ANTON currently admitted to the ICU due to hypertensive emergency. Patient presented to [place] ED on 04/09/22 after sustaining a fall. His BP on admission was 236/130. He was also having headache and blurry vision at the time. CT head was done which was negative for acute process. He was started on nicardipine drip and transferred to ICU for further management. Today patient had an episode of slurred speech and altered mental status. He had a repeat CT head done which was negative for hemorrhage. Carotid doppler?showed possible? thrombosed vessel arising from the left common carotid artery, unclear whether this represents the ICA or ECA. and bidirectional flow in the right vertebral artery which suggests subcutaneous steal with high-grade stenosis of the right subclavian artery proximal to the takeoff of the right femoral artery . CTA showed 45% stenosis of proximal R ICA and 32% stenosis of proximal L ICA, without any evidence of significant intracranial stenosis. Attempts have been made for patient's transfer for MRI, although no bed available. This morning patient seemed frustrated and had mostly incomprehensible speech, but was able to say that he can't speak . Review of Systems Review of Systems: ROS unobtainable: Yes unobtainable due to medical condition and unobtainable due to mental status Exam Const: General: comfortable and no acute distress HENMT: Mouth: Yes moist mucous membranes Eyes: Pupils: Equal, round and reactive pupils present EOM: EOMs intact bilaterally Resp: Effort & Inspection: normal respiratory effort Auscultation: clear to auscultation bilaterally Cardio: Rate: regular rate Rhythm: regular rhythm GI: GI Palp: Yes Soft to palpation Auscultation: normal bowel sounds Skin: General skin exam: normal color Neuro: Other: AOx1 (self), Pupils equal and reactive bilaterally, EOMI, face symmetric, tongue protrudes midline, palate midline. Strength 5/5 throughout. Sensation intact throughout. Reflexes 2+ in biceps, 1+ herrera
[2022-04-11] MEDS: niCARdipine 20 MG/200 ML 20 MG/200 ML BAG 25 MG IV CONT (14:57)
--- NOTE | 2022-04-11 17:10 | PM.PNCARD ---
Progress Note: A&P Assessment and Plan (1) Hypertensive urgency: Code(s): I16.0 - Hypertensive urgency Status: Acute Assessment and Plan: History of hypertension in the past, off blood pressure medications for the past 2 years due to orthostasis. Systolic blood pressure has been reasonably controlled in general. Recent problems with severe hypertension. Amlodipine, 2.5 mg daily started 04/10/2022; will incr to BID. follow orthostatics May need to resume midodrine at a lower dose, 2.5 mg TID, if still orthostatic. (2) Orthostatic hypotension: Code(s): I95.1 - Orthostatic hypotension Status: Acute Assessment and Plan: long history of orthostatic hypotension thought to be due to autonomic dysfunction, secondary to diabetes. Cont compression stockings Keep HOB up at 30 degrees Cont hydration (3) CAD (coronary artery disease): Code(s): I25.10 - Atherosclerotic heart disease of [place] coronary artery without angina pectoris Status: Acute Assessment and Plan: history of CAD and CABG, stable. Followed by [facility] History of pacemaker, followed remotely Takes low dose Eliquis, as well as ASA, for h/o CAD/CABG and remote DVT. Currently off Eliquis; h/o falls. (4) Confusion: Code(s): R41.0 - Disorientation, unspecified Status: Acute Assessment and Plan: Worsening confusion noted recently, CTA findings as above; has cerebrovascular dz. Neurology rec an MRI, which will need to be done elsewhere. Waiting for a bed. Con ASA + atorvastatin. 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 Take BPs in LUE. Subjective Date/time seen: Follow-up for history of orthostatic hypotension requiring midodrine. Recent onset of recurrent hypertension. 04/11/22 17:10: patient had problems with garbled speech and altered mental status yesterday, CT of the head showed no acute problems but carotid Doppler showed stenosis of the right subclavian and bidirectional flow of the right vertebral suggesting right-sided subclavian steal. CTA showed mild to moderate disease of the internal carotid arteries. Seen by neurologist Dr. Sidhu. Attempting transfer to a higher level of care, no beds available. No orthostatics have been done today. Systolic blood pressure ranging 150-200 mmHg, Taking amlodipine 2.5 mg daily and off midodrine. Still on nicardipine drip 2.5 milligrams/hour.Had 1 dose of p.r.n. hydralazine at 4:00 a.m.. Review of Systems Review of Systems: Patient feels better today, no chest pain, shortness of breath, abdominal pain, Or lightheadedness; speech has improved. Has hiccups. Exam Narrative: elderly male resting in bed in no distress Const: General: cooperative, healthy appearing and comfortable; No confusion Orientation/consciousness: No patient oriented x3 and confusion Other: sday) HENMT: Mouth: Yes moist mucous membranes Eyes: EOM: EOMs intact bilaterally Neck: Neck: supple Resp: Effort & Inspection: normal respiratory effort Auscultation: clear to auscultation bilaterally Cardio: Rate: regular rate Rhythm: regular rhythm Heart sounds: Murmur heart sound present GI: Inspection: normal to inspection GI Palp: No abdominal tenderness Skin: General skin exam: normal color and no rashes or lesions noted Neuro: General: oriented to person, No patient oriented x3 and confusion Other: oriented to [facility], March, not sure about the day of the week ( Saturday or ). Speech is more fluid, more alert and less confused than yesterday. Extrem: Right lower extremity: no edema Left lower extremity: no edema Psych: Appearance: grossly normal Mental Status: mental status grossly normal Objective Data Vital Sign
[2022-04-11 17:36] LABS: Glucose Point of Care 160 mg/dl (65-105)
[2022-04-11 17:58] LABS: Glucose Point of Care 141 mg/dl (65-105)
[2022-04-11] MEDS: INSULIN GLARGINE (*BKC) 100 UNITS/ML 15 UNITS SUB-Q (20:03)
[2022-04-11] MEDS: FINASTERIDE 5 MG TABLET PO (20:06)
[2022-04-11] MEDS: ATORVASTATIN 40 MG TABLET PO (20:06)
[2022-04-11 20:08] LABS: Glucose Point of Care 183 mg/dl (65-105)
[2022-04-12] VITALS (26 sets, daily range): BP systolic 106–196; BP diastolic 57–147; PULSE 62–84; RESP 13–28; TEMP 36.5–37; O2SAT 92–98
[2022-04-12] MEDS: hydrALAZINE HCL 20 MG/ML VIAL 10 MG IV PUSH ×2 (01:29→12:38)
[2022-04-12 04:31] LABS: Basophils Absolute Auto 0.1 K/mm3 (0.0-0.1); Basophils Percent Auto 0.5 % (0.2-1.2); Eosinophils Absolute Auto 0.2 K/mm3 (0-0.3); Eosinophils Percent Auto 1.8 % (0-4.4); Hematocrit 36.7 % (42.0-52.0); Hemoglobin 11.8 g/dL (14.0-18.0); Immature Granulocyte Absolute 0.06 K/mm3 (0.00-0.031); Immature Granulocyte Percent A 0.6 % (0-0.5); Lymphocytes Absolute Auto 1.78 K/mm3 (0.9-3.2); Lymphocytes Percent Auto 16.7 % (18.3-44.2); Mean Corpuscular HGB Conc 32.2 g/dl (32-36); Mean Corpuscular Hemoglobin 31.2 pg (26-34); Mean Corpuscular Volume 97.1 fl (80-100); Mean Platelet Volume 10.7 fl (7.4-10.4); Monocytes Absolute Auto 1.7 K/mm3 (0.1-0.6); Monocytes Percent Auto 15.6 % (2.6-8.5); Neutrophils Absolute Auto 6.9 K/mm3 (1.3-6.7); Neutrophils Percent Auto 64.8 % (45.5-73.1); Platelet Count Result 179 k/mm3 (150-375); Red Blood Count 3.78 M/mm3 (4.6-6.20); Red Cell Distribution Width 13.5 % (11.5-14.5); White Blood Count 10.7 K/mm3 (4.5-10.0)
[2022-04-12 04:48] LABS: Alanine Aminotransferase 35 U/L (6-50); Albumin Level 2.9 g/dL (3.5-5.1); Alkaline Phosphatase 70 U/L (38-126); Anion Gap 5 mmol/L (8-16); Aspartate Amino Transferase 43 U/L (17-59); Bilirubin,Total 1.2 mg/dL (0.2-1.3); Blood Urea Nitrogen 29 mg/dL (9-20); Calcium 8.2 mg/dL (8.4-10.2); Carbon Dioxide 28 mmol/L (22-30); Chloride 101 mmol/L (98-107); Estimated CRCL calculation 33 ml/min; Estimated Glomerular Filt Rate 41; Glucose 118 mg/dL (65-110); Magnesium 1.8 mg/dL (1.6-2.3); Phosphorus 3.4 mg/dL (2.5-4.5); Potassium 3.4 mmol/L (3.4-5.0); Sodium 134 mmol/L (137-145)
[2022-04-12] MEDS: amLODIPine BESYLATE 2.5 MG TABLET PO ×2 (05:29→17:05)
[2022-04-12] MEDS: LEVOTHYROXINE SODIUM 100 MCG TABLET PO (05:29)
[2022-04-12] MEDS: LEVOTHYROXINE SODIUM 75 MCG TABLET PO (05:30)
[2022-04-12] MEDS: niCARdipine 20 MG/200 ML 20 MG/200 ML BAG 50 MG IV CONT (06:14)
[2022-04-12 08:00] LABS: Glucose Point of Care 119 mg/dl (65-105)
[2022-04-12] MEDS: CALCIUM CARBONATE (OSCAL) 500 MG TABLET PO (08:49)
[2022-04-12] MEDS: polyethylene glycoL 3350 17 GM POWD.PACK PO (08:49)
[2022-04-12] MEDS: TAMSULOSIN HCL 0.4 MG CAPSULE PO (08:49)
[2022-04-12] MEDS: CITALOPRAM HYDROBROMIDE 20 MG TABLET PO (08:49)
[2022-04-12] MEDS: ASPIRIN 81 MG ENTERIC TABLET PO (08:49)
[2022-04-12] MEDS: POTASSIUM CHLORIDE 20 MEQ PACKET (FOR LIQUID) 40 MEQ PO (08:49)
[2022-04-12] MEDS: DONEPEZIL HCL 5 MG TABLET PO (08:49)
--- NOTE | 2022-04-12 09:19 | PM.IMPN ---
Progress Note: A&P Assessment and Plan (1) Confusion: Code(s): R41.0 - Disorientation, unspecified Status: Acute Assessment and Plan: Patient had an episode of confusion. The following procedures performed on 04/10: CT brain:?Stable mild nonspecific cerebral white matter disease, which likely represents chronic small vessel ischemic disease. Carotid US: <50% stenosis in the right internal carotid artery; Likely thrombosed vessel arising from the left common carotid artery, unclear whether this represents the ICA or ECA; Bidirectional flow in the right vertebral artery which suggests subcclav steal with high-grade stenosis of the right subclavian artery proximal to the takeoff of the right femoral artery. Soft tissue neck CT: Fat stranding in left neck anterolateral to the carotid bifurcation, likely scarring from carotid endarterectomy. Head/Neck CT: 45% right and 32% left ICA stenosis. 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 No MRI because he has PM. Mental status back to normal. Appreciate Neurology evaluation and recommendations. Continue ASA. Consider TIA. Add Plavix? Trying to transfer pt to [facility] , [facility] in [place] and [facility] [place]. no beds available (2) Hypertensive urgency: Code(s): I16.0 - Hypertensive urgency Status: Acute Assessment and Plan: Patient presented with syncope resulting in a fall hitting his head on the ground. BP in the ER was 236/130 mm Hg. Patient also has a history of orthostatic hypotension on midodrine 10 mg TID and he may have taken additional doses of midodrine. Herequired nicardipine infusion with target systolic blood pressures 160-180 mmHg. Cardiology consulted and appreciate their input. Low-dose Norvasc was started and advanced. Continue to monitor blood pressure closely in the ICU and wean nicardipine as tolerated. Appreciate bar roller input. Check renal duplex. (3) Syncope: Code(s): R55 - Syncope and collapse Status: Acute Assessment and Plan: CT scan of the brain did not show any acute intracranial abnormality. Patient is on Eliquis at home which is on hold for now. Continue to monitor. PM was interrogated. Work-up otherwise as above. He is working with PT/OT. (4) Fall from ground level: Code(s): W18.30XA - Fall on same level, unspecified, initial encounter Status: Acute Assessment and Plan: As above (5) Orthostatic hypotension: Code(s): I95.1 - Orthostatic hypotension Status: Acute Assessment and Plan: Patient has history of orthostatic hypotension on midodrine 5 mg p.o. t.i.d. Midodrine on hold. Monitor closely off this medication and now on Norvasc. As above (6) Insulin dependent type 2 diabetes mellitus: Code(s): E11.9 - Type 2 diabetes mellitus without complications; Z79.4 - termite exterminator helper (current) use of insulin Status: Acute Assessment and Plan: A1c 6.9. The patient's blood glucose was reviewed on 04/12 Glucose remains reasonably well controlled. Continue AccuCheks covering with sliding scale. Hypoglycemia protocol available as needed. Continue current treatment plan. (7) Obstructive sleep apnea on CPAP: Code(s): G47.33 - Obstructive sleep apnea (adult) (pediatric); Z99.89 - Dependence on other enabling machines and devices Status: Acute Assessment and Plan: Stable. Continue CPAP at night and with naps as patient allows. Compliance was encouraged. (8) Chronic anticoagulation: Code(s): Z79.01 - retirement (current) use of anticoagulants Status: Acute Assessment and Plan: Related to DVT. Apixaban is on hold. Resume when okay with others. (9) Chronic kidney disease, stage 3: Code(s): N18.30 - Chronic kidney disease, stage 3 unspecified Status: Acute Assessment and Plan: Creatinine is at baseline at 1.5-1.6 an
[2022-04-12] MEDS: MAGNESIUM SULF 2 GM/WATER 50ML 2 GM/50 ML BAG IVPB (09:41)
--- NOTE | 2022-04-12 11:17 | WPDINTPN ---
Progress Note: A&P Assessment and Plan (1) Confusion: Code(s): R41.0 - Disorientation, unspecified Status: Acute Assessment and Plan: 04/10: Pt had episode of confusion, 04/10/[address] brain:?Stable mild nonspecific cerebral white matter disease, which likely represents chronic small vessel ischemic disease. -04/10/2022 ultrasound carotid Dopplers: 1. <50% stenosis in the right internal carotid artery. 2. Likely thrombosed vessel arising from the left common carotid artery, unclear whether this represents the ICA or ECA. Recommend further evaluation with carotid CT angiogram. 3. Bidirectional flow in the right vertebral artery which suggests subcutaneous steal with high-grade stenosis of the right subclavian artery proximal to the takeoff of the right femoral artery. This could also be further evaluated at the same time with carotid CT angiogram. Appreciate Neurology evaluation and recommendations - have tried to transfer pt to [facility] , [facility] system in [place] and [facility] in [place]. no beds available. For MRI as has a pacemaker. (Our MRI machines cannot take patients with pacemakers) (2) Hypertensive urgency: Code(s): I16.0 - Hypertensive urgency Status: Acute Assessment and Plan: Patient presented with syncope, fall hitting his head on the ground. -blood pressures in the ER with 236/130 mm Hg -patient also has a history of orthostatic hypotension on midodrine 10 mg 3 times a day -patient may have taken additional dose of midodrine -currently on nicardipine infusion -target systolic blood pressures 160-180 mmHg, wean to off if SBP less than 160 mmHg -cardiology has been consulted Required one dose of hydralazine overnight - Amlodipine was increased to 2.5 mg PO Q12H per cardiology, he is on prn hydralazine. -it may be a little tricky to maintain his blood pressures given orthostatic hypotension secondary to possible autonomic dysfunction along with hypertensive urgency - checking renal duplex (3) Fall from ground level: Code(s): W18.30XA - Fall on same level, unspecified, initial encounter Status: Acute Assessment and Plan: CT scan of the brain did not show any acute intracranial abnormality -patient is on Eliquis at home, hold for now -continue to monitor neuro checks - pacemaker interrogated -carotid Dopplers as above -unknown etiology of the fall, question mechanical (4) Syncope: Code(s): R55 - Syncope and collapse Status: Acute Assessment and Plan: as above (5) Orthostatic hypotension: Code(s): I95.1 - Orthostatic hypotension Status: Acute Assessment and Plan: Patient has history of orthostatic hypotension, on midodrine 5 mg p.o. t.i.d. Currently midodrine is on hold -d/w cardiology (6) Insulin dependent type 2 diabetes mellitus: Code(s): E11.9 - Type 2 diabetes mellitus without complications; Z79.4 - terminal computer operator (current) use of insulin Status: Acute Assessment and Plan: Continue sliding scale insulin Accu-Cheks along with Lantus (7) Obstructive sleep apnea on CPAP: Code(s): G47.33 - Obstructive sleep apnea (adult) (pediatric); Z99.89 - Dependence on other enabling machines and devices Status: Acute Assessment and Plan: CPAP at night, will encourage the pt to wear (8) Chronic anticoagulation: Code(s): Z79.01 - FDC (current) use of anticoagulants Status: Acute Assessment and Plan: Apixaban is on hold (9) Chronic kidney disease, stage 3: Code(s): N18.30 - Chronic kidney disease, stage 3 unspecified Status: Acute Assessment and Plan: Creatinine is at baseline -continue oral intake Plan DVT prophylaxis:? Hold apixaban Stress ulcer prophylaxis:? Not indicated Nutrition:? Heart healthy diet 04/11 D/w Dtr Destiney and updated her with pt's condition and plan of care. I answered all her questions and stated that his Donepezil was restarted 04/10: D
[2022-04-12 12:24] LABS: Glucose Point of Care 144 mg/dl (65-105)
--- NOTE | 2022-04-12 14:39 | WPDNEUROPN ---
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 is a 86 year old male with a history of HLD, orthostatic hypotension, CAD s/p pacemaker, hypothyroidism, ANTON currently admitted to the ICU due to hypertensive emergency. Had an episode on 04/10/22 of garbbled speech and altered mental status, now back to baseline. Carotid Doppler showed evidence of thrombosed vessel in the left common carotid artery, as well as stenosis of the right subclavian and bidirectional flow in the R vertebral artery artery suggesting subclavian steal syndrome. CTA showed 45% stenosis of proximal R ICA and 32% stenosis of proximal L ICA, without any evidence of significant intracranial stenosis.?Concern for stroke vs PRES (given severe HTN at presentation). - Recommend MRI brain to evaluate for stroke vs PRES -- unable to perform currently due to MRI/pacemaker compatibility - Will eventually need vascular surgery evaluation for subclavian steal syndrome - Continue ASA and Lipitor Subjective Date/time seen: 04/12/22 14:39 Interval history: Carlos Zhou Jr. is a 86 year old male with a history of HLD, orthostatic hypotension, CAD s/p pacemaker (on Eliquis), hypothyroidism, ANTON currently admitted to the ICU due to hypertensive emergency. Patient presented to [place] ED on 04/09/22 after sustaining a fall. His BP on admission was 236/130. He was also having headache and blurry vision at the time. CT head was done which was negative for acute process. He was started on nicardipine drip and transferred to ICU for further management. Today patient had an episode of slurred speech and altered mental status. He had a repeat CT head done which was negative for hemorrhage. Carotid doppler?showed possible? thrombosed vessel arising from the left common carotid artery, unclear whether this represents the ICA or ECA. and bidirectional flow in the right vertebral artery which suggests subcutaneous steal with high-grade stenosis of the right subclavian artery proximal to the takeoff of the right femoral artery .?CTA showed 45% stenosis of proximal R ICA and 32% stenosis of proximal L ICA, without any evidence of significant intracranial stenosis. Attempts have been made for patient's transfer for MRI, although no bed available. Patient appears back to baseline. He feels that his speech is normal now. No additional complaints. Review of Systems Constitutional: Constitutional: Reports no additional constitutional complaints Eyes: Eyes: Reports no additional eye complaints ENT: Reports system reviewed and no additional complaints, except as documented Cardiovascular: Cardiovascular: Reports no additional cardiovascular complaints Respiratory: Respiratory: Reports no additional respiratory complaints Gastrointestinal: Gastrointestinal: Reports no additional gastrointestinal complaints Genitourinary: Genitourinary: Reports no additional male genitourinary complaints Musculoskeletal: Musculoskeletal: Reports no additional musculoskeletal complaints Integumentary/Breasts: Skin/Breast: Reports system reviewed and no additional complaints, except as docu Neurologic: Reports as per HPI Psychiatric: Psychiatric: Reports no additional psychiatric complaints Exam Const: General: comfortable HENMT: Mouth: Yes moist mucous membranes Eyes: Pupils: Equal, round and reactive pupils present EOM: EOMs intact bilaterally Resp: Effort & Inspection: normal respiratory effort Auscultation: clear to aus
[2022-04-12 16:23] LABS: Glucose Point of Care 145 mg/dl (65-105)
--- NOTE | 2022-04-12 17:52 | PM.PNCARD ---
Progress Note: A&P Assessment and Plan (1) Hypertensive urgency: Code(s): I16.0 - Hypertensive urgency Status: Acute Assessment and Plan: History of hypertension in the past, off blood pressure medications for the past 2 years due to orthostasis. Systolic blood pressure has been reasonably controlled in general. However, the patient has had recent problems with severe hypertension. Amlodipine, 2.5 mg started 04/10/2022 BID. Nicardipine off 04/12/2022. systolic blood pressure seems to be improving. follow orthostatics Has a degree of right renal artery stenosis which may account for the sudden rise in blood pressure. Consider a renal CTA at some point for further evaluation. Has been off midodrine and so far not orthostatic. (2) Orthostatic hypotension: Code(s): I95.1 - Orthostatic hypotension Status: Acute Assessment and Plan: long history of orthostatic hypotension thought to be due to autonomic dysfunction, secondary to diabetes. Previously took midodrine. Currently orthostasis has been quiescent Cont compression stockings Keep HOB up at 30 degrees Cont hydration (3) CAD (coronary artery disease): Code(s): I25.10 - Atherosclerotic heart disease of [place] coronary artery without angina pectoris Status: Acute Assessment and Plan: History of CAD and CABG, stable. Followed by [facility] in [place]. History of pacemaker, followed remotely Takes low dose Eliquis, as well as ASA, for h/o CAD/CABG and remote DVT. Currently off Eliquis; h/o falls. Cont Atorvastatin. (4) Confusion: Code(s): R41.0 - Disorientation, unspecified Status: Acute Assessment and Plan: Worsening confusion noted recently, CTA findings as above; has cerebrovascular dz. Neurology rec an MRI, which will need to be done elsewhere. Waiting for a bed. Con ASA + atorvastatin. 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 Take BPs in LUE. Subjective Date/time seen: Follow-up for history of orthostatic hypotension requiring midodrine.? Recent onset of severe hypertension; midodrine DC'd. 04/11/22? 17:10: ? Patient had problems with garbled speech and altered mental status yesterday, CT of the head showed no acute problems but carotid Doppler showed stenosis of the right subclavian and bidirectional flow of the right vertebral suggesting right-sided subclavian steal.? ? CTA showed mild to moderate disease of the internal carotid arteries.? Seen by neurologist Dr. Sidhu.? Attempting transfer to a higher level of care, no beds available.? No orthostatics have been done today.? Systolic blood pressure ranging 150-200 mmHg, ? Taking amlodipine 2.5 mg daily and off midodrine.? ? Still on nicardipine drip 2.5 milligrams/hour.Had 1 dose of p.r.n. hydralazine at 4:00 a.m. Increased amlodpine to 2.5 mg BID. 04/12/22 17:52 Patient feels good today. With sitting up in a chair for a couple of hours. Currently off nicardipine. Systolic blood pressure is doing better, using to 130s-170. Systolic BP supine was 145, and standing 131 mmHg. Renal artery ultrasound suggested some stenosis of the right renal artery. Review of Systems Review of Systems: No chest pain, dizziness. Will a little congested with a mild cough. Weak from being in bed for a couple of days. No abdominal complaints. Exam Const: General: cooperative and comfortable; No confusion Orientation/consciousness: oriented to person, patient oriented x3 and No confusion HENMT: Mouth: Yes dry mucous membranes Eyes: EOM: EOMs intact bilaterally Neck: Neck: supple Resp: Effort & Inspection: normal respiratory effort Auscultation: clear to auscultation bilaterally Cardio: Rate: regular rate Rhythm: regular rhy
[2022-04-12] MEDS: INSULIN GLARGINE (*BKC) 100 UNITS/ML 15 UNITS SUB-Q (20:04)
[2022-04-12] MEDS: FINASTERIDE 5 MG TABLET PO (20:05)
[2022-04-12] MEDS: ATORVASTATIN 40 MG TABLET PO (20:06)
[2022-04-12 20:16] LABS: Glucose Point of Care 190 mg/dl (65-105)
[2022-04-13] VITALS (20 sets, daily range): BP systolic 113–179; BP diastolic 59–93; PULSE 60–74; RESP 13–24; TEMP 36.5–36.8; O2SAT 94–98
[2022-04-13] MEDS: hydrALAZINE HCL 20 MG/ML VIAL 10 MG IV PUSH ×2 (01:08→16:54)
[2022-04-13 05:37] LABS: Basophils Absolute Auto 0.1 K/mm3 (0.0-0.1); Basophils Percent Auto 0.6 % (0.2-1.2); Eosinophils Absolute Auto 0.3 K/mm3 (0-0.3); Eosinophils Percent Auto 3.2 % (0-4.4); Hematocrit 37.6 % (42.0-52.0); Hemoglobin 12.1 g/dL (14.0-18.0); Immature Granulocyte Absolute 0.04 K/mm3 (0.00-0.031); Immature Granulocyte Percent A 0.4 % (0-0.5); Lymphocytes Absolute Auto 1.78 K/mm3 (0.9-3.2); Lymphocytes Percent Auto 19.2 % (18.3-44.2); Mean Corpuscular HGB Conc 32.2 g/dl (32-36); Mean Corpuscular Hemoglobin 31.6 pg (26-34); Mean Corpuscular Volume 98.2 fl (80-100); Mean Platelet Volume 11.2 fl (7.4-10.4); Monocytes Absolute Auto 1.5 K/mm3 (0.1-0.6); Monocytes Percent Auto 16.4 % (2.6-8.5); Neutrophils Absolute Auto 5.6 K/mm3 (1.3-6.7); Neutrophils Percent Auto 60.2 % (45.5-73.1); Platelet Count Result 175 k/mm3 (150-375); Red Blood Count 3.83 M/mm3 (4.6-6.20); Red Cell Distribution Width 13.6 % (11.5-14.5); White Blood Count 9.3 K/mm3 (4.5-10.0)
[2022-04-13 05:49] LABS: Alanine Aminotransferase 34 U/L (6-50); Alkaline Phosphatase 76 U/L (38-126); Anion Gap 7 mmol/L (8-16); Aspartate Amino Transferase 44 U/L (17-59); Bilirubin,Total 1.2 mg/dL (0.2-1.3); Blood Urea Nitrogen 30 mg/dL (9-20); Calcium 8.6 mg/dL (8.4-10.2); Carbon Dioxide 28 mmol/L (22-30); Chloride 101 mmol/L (98-107); Estimated CRCL calculation 31 ml/min; Estimated Glomerular Filt Rate 39; Glucose 112 mg/dL (65-110); Magnesium 2.2 mg/dL (1.6-2.3); Phosphorus 3.8 mg/dL (2.5-4.5); Potassium 3.8 mmol/L (3.4-5.0); Sodium 136 mmol/L (137-145)
[2022-04-13] MEDS: amLODIPine BESYLATE 2.5 MG TABLET PO ×3 (06:09→16:54)
[2022-04-13] MEDS: LEVOTHYROXINE SODIUM 100 MCG TABLET PO (06:10)
[2022-04-13] MEDS: LEVOTHYROXINE SODIUM 75 MCG TABLET PO (06:10)
[2022-04-13] MEDS: ASPIRIN 81 MG ENTERIC TABLET PO (09:13)
[2022-04-13] MEDS: CITALOPRAM HYDROBROMIDE 20 MG TABLET PO (09:14)
[2022-04-13] MEDS: TAMSULOSIN HCL 0.4 MG CAPSULE PO (09:14)
[2022-04-13] MEDS: DONEPEZIL HCL 5 MG TABLET PO (09:14)
[2022-04-13] MEDS: polyethylene glycoL 3350 17 GM POWD.PACK PO (09:14)
[2022-04-13] MEDS: CALCIUM CARBONATE (OSCAL) 500 MG TABLET PO (09:14)
--- NOTE | 2022-04-13 11:08 | WPDINTPN ---
Progress Note: A&P Assessment and Plan (1) Confusion: Code(s): R41.0 - Disorientation, unspecified Status: Acute Assessment and Plan: RESOLVED 04/10: Pt had episode of confusion, 04/10/[address] brain:?Stable mild nonspecific cerebral white matter disease, which likely represents chronic small vessel ischemic disease. -04/10/2022 ultrasound carotid Dopplers: 1. <50% stenosis in the right internal carotid artery. 2. Likely thrombosed vessel arising from the left common carotid artery, unclear whether this represents the ICA or ECA. Recommend further evaluation with carotid CT angiogram. 3. Bidirectional flow in the right vertebral artery which suggests subcutaneous steal with high-grade stenosis of the right subclavian artery proximal to the takeoff of the right femoral artery. This could also be further evaluated at the same time with carotid CT angiogram. Appreciate Neurology evaluation and recommendations - have tried to transfer pt to [facility] , [facility] system in [place] and [facility] in [place]. no beds available. For MRI as has a pacemaker. (Our MRI machines cannot take patients with pacemakers) (2) Hypertensive urgency: Code(s): I16.0 - Hypertensive urgency Status: Acute Assessment and Plan: Patient presented with syncope, fall hitting his head on the ground. -blood pressures in the ER with 236/130 mm Hg -patient also has a history of orthostatic hypotension on midodrine 10 mg 3 times a day -patient may have taken additional dose of midodrine, off midodrine since admission -OFF NICARDIPINE -appreciate cardiology following the patient - Amlodipine was increased to 5.0 mg PO Q12H per cardiology, he is on prn hydralazine. -it may be a little tricky to maintain his blood pressures given orthostatic hypotension secondary to possible autonomic dysfunction along with hypertensive urgency - 04/12: Renal artery duplex: right renal artery > 50-60% stenosis. Nonvisualization of the left renal arteries due to shadowing bowel gas. ?Of note there appears to be a greater atherosclerotic plaque burden at the proximal left renal artery than on the right. (3) Fall from ground level: Code(s): W18.30XA - Fall on same level, unspecified, initial encounter Status: Acute Assessment and Plan: CT scan of the brain did not show any acute intracranial abnormality -patient is on Eliquis at home, hold for now -continue to monitor neuro checks - pacemaker interrogated -carotid Dopplers as above -unknown etiology of the fall, question mechanical (4) Syncope: Code(s): R55 - Syncope and collapse Status: Acute Assessment and Plan: as above (5) Orthostatic hypotension: Code(s): I95.1 - Orthostatic hypotension Status: Acute Assessment and Plan: Patient has history of orthostatic hypotension, on midodrine 5 mg p.o. t.i.d. Currently midodrine is on hold -d/w cardiology (6) Insulin dependent type 2 diabetes mellitus: Code(s): E11.9 - Type 2 diabetes mellitus without complications; Z79.4 - long-term (current) use of insulin Status: Acute Assessment and Plan: Continue sliding scale insulin Accu-Cheks along with Lantus (7) Obstructive sleep apnea on CPAP: Code(s): G47.33 - Obstructive sleep apnea (adult) (pediatric); Z99.89 - Dependence on other enabling machines and devices Status: Acute Assessment and Plan: Patient wearing his CPAP at night will continue to encourage (8) Chronic anticoagulation: Code(s): Z79.01 - long-term (current) use of anticoagulants Status: Acute Assessment and Plan: Apixaban is on hold (9) Chronic kidney disease, stage 3: Code(s): N18.30 - Chronic kidney disease, stage 3 unspecified Status: Acute Assessment and Plan: Creatinine is at baseline -continue oral intake Plan DVT prophylaxis:? Hold apixaban Stress ulcer prophylaxis:? Not indicated Nutrition:? Heart healthy
[2022-04-13 12:14] LABS: Glucose Point of Care 149 mg/dl (65-105)
--- NOTE | 2022-04-13 14:11 | P.PNCA_ITS ---
Progress Note: A&P Assessment and Plan (1) Hypertensive urgency: Code(s): I16.0 - Hypertensive urgency Status: Acute Assessment and Plan: History of hypertension in the past, off blood pressure medications for the past 2 years due to orthostasis. Systolic blood pressure has been reasonably controlled in general. However, the patient has had recent problems with severe hypertension. * Amlodipine, 2.5 mg started 04/10/2022 BID. Nicardipine off 04/12/2022. * systolic blood pressure seems to be improving. * follow orthostatics * Has a degree of right renal artery stenosis which may account for the sudden rise in blood pressure. Consider a renal CTA at some point for further evaluation. * Has been off midodrine and so far not orthostatic. * Cardiology will see him on an as needed basis. Please call with questions. (2) Orthostatic hypotension: Code(s): I95.1 - Orthostatic hypotension Status: Acute Assessment and Plan: long history of orthostatic hypotension thought to be due to autonomic dysfunction, secondary to diabetes. Previously took midodrine. * Currently orthostasis has been quiescent * Cont compression stockings * Keep HOB up at 30 degrees * Cont hydration (3) CAD (coronary artery disease): Code(s): I25.10 - Atherosclerotic heart disease of [place] coronary artery without angina pectoris Status: Acute Assessment and Plan: History of CAD and CABG, stable. Followed by [facility] in [place]. * History of pacemaker, followed remotely * Takes low dose Eliquis, as well as ASA, for h/o CAD/CABG and remote DVT. * Currently off Eliquis; h/o falls. * Cont Atorvastatin. (4) Confusion: Code(s): R41.0 - Disorientation, unspecified Status: Acute Assessment and Plan: Worsening confusion noted recently, CTA findings as above; has cerebrovascular dz. * Neurology rec an MRI, which will need to be done elsewhere. Waiting for a bed. * Con ASA + atorvastatin. 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 * Take BPs in LUE. Subjective Date/time seen: 04/13/22 14:11 Cardiology follow up for hypertension Interval history: Feeling better today. Notes that he is weak. Denies any chest pain or shortness of breath. No dizziness or syncope. Review of Systems Constitutional: Constitutional: Denies fever(s) Eyes: Eyes: Reports no additional eye complaints Cardiovascular: Cardiovascular: Denies chest pain, Denies pedal edema, Reports lightheadedness and Denies dyspnea Respiratory: Respiratory: Denies chest congestion and Denies dyspnea Gastrointestinal: Gastrointestinal: Denies abdominal pain and Denies hematochezia Musculoskeletal: Musculoskeletal: Reports no additional musculoskeletal complaints Integumentary/Breasts: Skin/Breast: Reports system reviewed and no additional complaints, except as docu Neurologic: Reports system reviewed and no additional complaints, except as documented, Reports behavioral changes and Denies confusion Psychiatric: Psychiatric: Reports behavioral changes and Denies confusion Exam Narrative: elderly male resting in bed in no distress Const: General: cooperative, healthy appearing
--- NOTE | 2022-04-13 14:11 | PM.PNCARD ---
Progress Note: A&P Assessment and Plan (1) Hypertensive urgency: Code(s): I16.0 - Hypertensive urgency Status: Acute Assessment and Plan: History of hypertension in the past, off blood pressure medications for the past 2 years due to orthostasis. Systolic blood pressure has been reasonably controlled in general. However, the patient has had recent problems with severe hypertension. Amlodipine, 2.5 mg started 04/10/2022 BID. Nicardipine off 04/12/2022. systolic blood pressure seems to be improving. follow orthostatics Has a degree of right renal artery stenosis which may account for the sudden rise in blood pressure. Consider a renal CTA at some point for further evaluation. Has been off midodrine and so far not orthostatic. Cardiology will see him on an as needed basis. Please call with questions. (2) Orthostatic hypotension: Code(s): I95.1 - Orthostatic hypotension Status: Acute Assessment and Plan: long history of orthostatic hypotension thought to be due to autonomic dysfunction, secondary to diabetes. Previously took midodrine. Currently orthostasis has been quiescent Cont compression stockings Keep HOB up at 30 degrees Cont hydration (3) CAD (coronary artery disease): Code(s): I25.10 - Atherosclerotic heart disease of [place] coronary artery without angina pectoris Status: Acute Assessment and Plan: History of CAD and CABG, stable. Followed by [facility] in [place]. History of pacemaker, followed remotely Takes low dose Eliquis, as well as ASA, for h/o CAD/CABG and remote DVT. Currently off Eliquis; h/o falls. Cont Atorvastatin. (4) Confusion: Code(s): R41.0 - Disorientation, unspecified Status: Acute Assessment and Plan: Worsening confusion noted recently, CTA findings as above; has cerebrovascular dz. Neurology rec an MRI, which will need to be done elsewhere. Waiting for a bed. Con ASA + atorvastatin. 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 Take BPs in LUE. Subjective Date/time seen: 04/13/22 14:11 Cardiology follow up for hypertension Interval history: Feeling better today. Notes that he is weak. Denies any chest pain or shortness of breath. No dizziness or syncope. Review of Systems Constitutional: Constitutional: Denies fever(s) Eyes: Eyes: Reports no additional eye complaints Cardiovascular: Cardiovascular: Denies chest pain, Denies pedal edema, Reports lightheadedness and Denies dyspnea Respiratory: Respiratory: Denies chest congestion and Denies dyspnea Gastrointestinal: Gastrointestinal: Denies abdominal pain and Denies hematochezia Musculoskeletal: Musculoskeletal: Reports no additional musculoskeletal complaints Integumentary/Breasts: Skin/Breast: Reports system reviewed and no additional complaints, except as docu Neurologic: Reports system reviewed and no additional complaints, except as documented, Reports behavioral changes and Denies confusion Psychiatric: Psychiatric: Reports behavioral changes and Denies confusion Exam Narrative: elderly male resting in bed in no distress Const: General: cooperative, healthy appearing and comfortable; No confusion Orientation/consciousness: patient oriented x3 and No confusion Other: sday) HENMT: Mouth: Yes moist mucous membranes and Yes dry mucous membranes Eyes: EOM: EOMs intact bilaterally Other: mild ecchymosis left eyelid Neck: Neck: supple Thyroid: thyroid normal Resp: Effort & Inspection: normal respiratory effort Auscultation: clear to auscultation bilaterally Cardio: Rate: regular rate Rhythm: regular rhythm Heart sounds: Murmur heart sound present ( 2/6 WARREN left lower sternal border) GI: Inspection: normal to ins
--- NOTE | 2022-04-13 17:17 | PM.IMPN ---
Progress Note: A&P Assessment and Plan (1) Confusion: Code(s): R41.0 - Disorientation, unspecified Status: Acute Assessment and Plan: Patient had an episode of confusion. The following procedures performed on 04/09-: CT brain:?Stable mild nonspecific cerebral white matter disease, which likely represents chronic small vessel ischemic disease. Carotid US: <50% stenosis in the right internal carotid artery; Likely thrombosed vessel arising from the left common carotid artery, unclear whether this represents the ICA or ECA; Bidirectional flow in the right vertebral artery which suggests subcclav steal with high-grade stenosis of the right subclavian artery proximal to the takeoff of the right femoral artery. Soft tissue neck CT: Fat stranding in left neck anterolateral to the carotid bifurcation, likely scarring from carotid endarterectomy. Head/Neck CT: 45% right and 32% left ICA stenosis. 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 Severe stenosis to the left external carotid artery. No MRI because he has PM. Mental status back to normal. Appreciate Neurology evaluation and recommendations. Consider TIA. Continue ASA. Trying to transfer pt but no beds available. (2) Hypertensive urgency: Code(s): I16.0 - Hypertensive urgency Status: Acute Assessment and Plan: Patient presented with syncope resulting in a fall hitting his head on the ground. BP in the ER was 236/130 mm Hg. Patient also has a history of orthostatic hypotension on midodrine 10 mg TID and he may have taken additional doses of midodrine. Here, he required nicardipine infusion with target systolic blood pressures 160-180 mmHg. Cardiology consulted and appreciate their input. Low-dose Norvasc was started and advanced to 2.5mg bid. Renal artery with possible bilateral stenosis. Able to wean off nicardipine. Continue to monitor blood pressure closely but okay to move to IMU. Consider CTA of the renal arteries but he does have CKD. Appreciate chain machine operator input. (3) Syncope: Code(s): R55 - Syncope and collapse Status: Acute Assessment and Plan: CT scan of the brain did not show any acute intracranial abnormality. Patient is on Eliquis at home which is on hold for now. Continue to monitor. PM was interrogated. Work-up otherwise as above. He is working with PT/OT. (4) Fall from ground level: Code(s): W18.30XA - Fall on same level, unspecified, initial encounter Status: Acute Assessment and Plan: As above (5) Orthostatic hypotension: Code(s): I95.1 - Orthostatic hypotension Status: Acute Assessment and Plan: Patient has history of orthostatic hypotension on midodrine 5 mg p.o. t.i.d. Midodrine on hold. Monitor closely off this medication and now on Norvasc. As above (6) Insulin dependent type 2 diabetes mellitus: Code(s): E11.9 - Type 2 diabetes mellitus without complications; Z79.4 - electrical products engineer (current) use of insulin Status: Acute Assessment and Plan: A1c 6.9. The patient's blood glucose was reviewed on 04/13 Glucose remains reasonably well controlled. Continue AccuCheks covering with sliding scale. Hypoglycemia protocol available as needed. Continue current treatment plan. (7) Obstructive sleep apnea on CPAP: Code(s): G47.33 - Obstructive sleep apnea (adult) (pediatric); Z99.89 - Dependence on other enabling machines and devices Status: Acute Assessment and Plan: Stable. Continue CPAP at night and with naps as patient allows. Compliance was encouraged. (8) Chronic anticoagulation: Code(s): Z79.01 - care home (current) use of anticoagulants Status: Acute Assessment and Plan: Related to DVT. Apixaban is on hold. He is a fall risk and his HAS-BLED score of 4 (high risk). Continue to hold. (9) Chronic kidney disease, stage 3:
[2022-04-13 18:17] LABS: Glucose Point of Care 115 mg/dl (65-105)
[2022-04-13] MEDS: ENOXAPARIN 30 MG/0.3 ML SYRINGE SUB-Q (20:11)
[2022-04-13] MEDS: ATORVASTATIN 40 MG TABLET PO (20:11)
[2022-04-13] MEDS: INSULIN GLARGINE (*BKC) 100 UNITS/ML 15 UNITS SUB-Q (20:12)
[2022-04-13] MEDS: FINASTERIDE 5 MG TABLET PO (20:12)
[2022-04-13 20:22] LABS: Glucose Point of Care 154 mg/dl (65-105)
--- NOTE | 2022-04-13 22:35 | PC.NURSE ---
This patient, Carlos Zhou Jr., was transferred to IMU 231 on 04/13/22 at 2236. Personal belongings sent with patient. Report given to Janice QUILES. Appropriate documentation sent with patient.
[2022-04-14] VITALS (16 sets, daily range): BP systolic 95–183; BP diastolic 60–93; PULSE 68–100; RESP 16–20; TEMP 36.4–37.1; O2SAT 95–100
[2022-04-14 05:30] LABS: Basophils Absolute Auto 0.1 K/mm3 (0.0-0.1); Basophils Percent Auto 0.7 % (0.2-1.2); Eosinophils Absolute Auto 0.2 K/mm3 (0-0.3); Eosinophils Percent Auto 2.1 % (0-4.4); Hematocrit 36.2 % (42.0-52.0); Hemoglobin 11.7 g/dL (14.0-18.0); Immature Granulocyte Absolute 0.04 K/mm3 (0.00-0.031); Immature Granulocyte Percent A 0.5 % (0-0.5); Lymphocytes Absolute Auto 1.37 K/mm3 (0.9-3.2); Lymphocytes Percent Auto 15.9 % (18.3-44.2); Mean Corpuscular HGB Conc 32.3 g/dl (32-36); Mean Platelet Volume 11.4 fl (7.4-10.4); Monocytes Absolute Auto 1.2 K/mm3 (0.1-0.6); Monocytes Percent Auto 14.3 % (2.6-8.5); Neutrophils Absolute Auto 5.7 K/mm3 (1.3-6.7); Neutrophils Percent Auto 66.5 % (45.5-73.1); Platelet Count Result 170 k/mm3 (150-375); Red Blood Count 3.77 M/mm3 (4.6-6.20); Red Cell Distribution Width 13.5 % (11.5-14.5); White Blood Count 8.6 K/mm3 (4.5-10.0)
[2022-04-14 05:39] LABS: Albumin Level 3.2 g/dL (3.5-5.1); Anion Gap 5 mmol/L (8-16); Blood Urea Nitrogen 36 mg/dL (9-20); Calcium 8.3 mg/dL (8.4-10.2); Carbon Dioxide 25 mmol/L (22-30); Chloride 103 mmol/L (98-107); Estimated CRCL calculation 31 ml/min; Estimated Glomerular Filt Rate 36; Glucose 126 mg/dL (65-110); Magnesium 2.1 mg/dL (1.6-2.3); Potassium 4.1 mmol/L (3.4-5.0); Sodium 133 mmol/L (137-145)
[2022-04-14 06:05] LABS: Glucose Point of Care 110 mg/dl (65-105)
[2022-04-14] MEDS: LEVOTHYROXINE SODIUM 75 MCG TABLET PO (06:32)
[2022-04-14] MEDS: amLODIPine BESYLATE 2.5 MG TABLET PO ×2 (06:32→18:34)
[2022-04-14] MEDS: LEVOTHYROXINE SODIUM 100 MCG TABLET PO (06:32)
[2022-04-14 09:02] LABS: Glucose Point of Care 136 mg/dl (65-105)
[2022-04-14] MEDS: DONEPEZIL HCL 5 MG TABLET PO (10:25)
[2022-04-14] MEDS: PROMETHAZINE HCL 12.5 MG TABLET PO (10:25)
[2022-04-14] MEDS: ENOXAPARIN 30 MG/0.3 ML SYRINGE SUB-Q (10:25)
[2022-04-14] MEDS: CITALOPRAM HYDROBROMIDE 20 MG TABLET PO (10:26)
[2022-04-14] MEDS: TAMSULOSIN HCL 0.4 MG CAPSULE PO (10:26)
[2022-04-14] MEDS: ASPIRIN 81 MG ENTERIC TABLET PO (10:26)
[2022-04-14] MEDS: CALCIUM CARBONATE (OSCAL) 500 MG TABLET PO (10:26)
[2022-04-14] MEDS: polyethylene glycoL 3350 17 GM POWD.PACK PO (10:27)
[2022-04-14 13:07] LABS: Glucose Point of Care 142 mg/dl (65-105)
--- NOTE | 2022-04-14 16:41 | PM.IMPN ---
Progress Note: A&P Assessment and Plan (1) Confusion: Code(s): R41.0 - Disorientation, unspecified Status: Acute Assessment and Plan: Patient had an episode of confusion. The following procedures performed on 04/09-: CT brain:?Stable mild nonspecific cerebral white matter disease, which likely represents chronic small vessel ischemic disease. Carotid US: <50% stenosis in the right internal carotid artery; Likely thrombosed vessel arising from the left common carotid artery, unclear whether this represents the ICA or ECA; Bidirectional flow in the right vertebral artery which suggests subcclav steal with high-grade stenosis of the right subclavian artery proximal to the takeoff of the right femoral artery. Soft tissue neck CT: Fat stranding in left neck anterolateral to the carotid bifurcation, likely scarring from carotid endarterectomy. Head/Neck CT: 45% right and 32% left ICA stenosis. 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 Severe stenosis to the left external carotid artery. No MRI because he has PM. Mental status was back to normal but now more confused today. Went over his current mediations with daughter and appear to match. Appreciate Neurology evaluation and recommendations. Consider TIA. Consider UTI. No medications given except phenergan this morning which can cause hallucinations. Related to the orthostatic BP? Related to noncompliance with his BiPAP? Continue ASA. Stop phenergan. Check UA. Check bladder scan. Check ABG in the morning. Trying to transfer pt but no beds available. (2) Hypertensive urgency: Code(s): I16.0 - Hypertensive urgency Status: Acute Assessment and Plan: Patient presented with syncope resulting in a fall hitting his head on the ground. BP in the ER was 236/130 mm Hg. Patient also has a history of orthostatic hypotension on midodrine 10 mg TID and he may have taken additional doses of midodrine. Here, he required nicardipine infusion with target systolic blood pressures 160-180 mmHg. Cardiology consulted and appreciate their input. Low-dose Norvasc was started and advanced to 2.5mg bid. Renal artery with possible bilateral stenosis. Able to wean off nicardipine. Orthostatics noted. Continue to monitor blood pressure closely. Consider CTA of the renal arteries but he does have CKD and plan would be to treat conservatively. (3) Syncope: Code(s): R55 - Syncope and collapse Status: Acute Assessment and Plan: CT scan of the brain did not show any acute intracranial abnormality. Patient is on Eliquis at home which is on hold for now. Continue to monitor. PM was interrogated. Work-up otherwise as above. He is working with PT/OT. Still very orthostatic so feel that the risk of Eliquis outweighs the benefit. Could be dehydrated? NS x 1/2L. (4) Fall from ground level: Code(s): W18.30XA - Fall on same level, unspecified, initial encounter Status: Acute Assessment and Plan: As above (5) Orthostatic hypotension: Code(s): I95.1 - Orthostatic hypotension Status: Acute Assessment and Plan: Patient has history of orthostatic hypotension on midodrine 5 mg p.o. t.i.d. Midodrine on hold. Orthostatic as mentioned above. Monitor closely off this medication and now on Norvasc. As above. (6) Insulin dependent type 2 diabetes mellitus: Code(s): E11.9 - Type 2 diabetes mellitus without complications; Z79.4 - vermin exterminator (current) use of insulin Status: Acute Assessment and Plan: A1c 6.9. The patient's blood glucose was reviewed on 04/14 Glucose remains reasonably well controlled. Continue AccuCheks covering with sliding scale. Hypoglycemia protocol available as needed. Continue current treatment plan. (7) Obstructive sleep apnea on CPAP: Code(s): G47.33 - Obstructive sleep apnea (adult) (pediatric); Z99.89 - Dependenc
[2022-04-14 17:42] LABS: Glucose Point of Care 136 mg/dl (65-105)
[2022-04-14] MEDS: SODIUM CHLORIDE 0.9% IV 1,000 ML 100 ML IV CONT (18:34)
[2022-04-14] MEDS: ATORVASTATIN 40 MG TABLET PO (20:11)
[2022-04-14] MEDS: FINASTERIDE 5 MG TABLET PO (20:11)
[2022-04-14 20:24] LABS: Glucose Point of Care 168 mg/dl (65-105)
[2022-04-14] MEDS: INSULIN GLARGINE (*BKC) 100 UNITS/ML 15 UNITS SUB-Q (21:14)
[2022-04-14 22:05] LABS: Add Urine Microscopic? YES; Appearance Urine Clear (Clear); Bilirubin Urine Negative (Negative); Blood Urine 1+ (Negative); Color Urine Straw (Yellow); Glucose Urine UA Negative (Negative); Ketones Urine Negative (Negative); Leukocyte Esterase Ur Negative LEU/UL (Negative); Mucus Urine Rare /lpf; Nitrate Urine Negative (Negative); Protein Urine 2+ mg/dL (Negative); RBC Urine 0-2 /hpf (0-2); Specific Grav Ur 1.005 (1.001-1.035); Urobilinogen Urine Negative mg/dL (<2.0); WBC Urine 0-3 /hpf
[2022-04-15] VITALS (16 sets, daily range): BP systolic 107–194; BP diastolic 55–85; PULSE 65–83; RESP 16–20; TEMP 36.3–36.7; O2SAT 94–98
[2022-04-15 05:04] LABS: Anion Gap 5 mmol/L (8-16); Blood Urea Nitrogen 30 mg/dL (9-20); Calcium 8.5 mg/dL (8.4-10.2); Carbon Dioxide 28 mmol/L (22-30); Chloride 105 mmol/L (98-107); Estimated CRCL calculation 35 ml/min; Estimated Glomerular Filt Rate 41; Glucose 86 mg/dL (65-110); Potassium 3.9 mmol/L (3.4-5.0); Sodium 138 mmol/L (137-145)
[2022-04-15 05:52] LABS: Base Excess ABG 2.5 mEq/l (+/-2.0); Fractional Inspired Oxygen 21 %; HCO3 ABG 27.3 mEq/l (22.0-26.0); Oxygen Content ABG 17.1 %vol (16.0-22.0); Oxygen Saturation ABG 91.2 % (95.0-100.0); PCO2 ABG 42.9 mmHg (35.0-45.0); PO2 ABG 59.4 mmHg (80.0-100.0); PO2 FiO2 Ratio Arterial Blood 2.83 %; Total Hemoglobin 13.7 g/dL (12.0-18.0); pH ABG 7.421 (7.350-7.450)
[2022-04-15] MEDS: LEVOTHYROXINE SODIUM 100 MCG TABLET PO (05:52)
[2022-04-15] MEDS: amLODIPine BESYLATE 2.5 MG TABLET PO ×2 (05:52→21:44)
[2022-04-15] MEDS: LEVOTHYROXINE SODIUM 75 MCG TABLET PO (05:52)
[2022-04-15 05:53] LABS: Device ROOM AIR; Modified Allen's Test Pass; Site Drawn LEFT RADIAL
[2022-04-15] MEDS: DONEPEZIL HCL 5 MG TABLET PO (08:08)
[2022-04-15] MEDS: ASPIRIN 81 MG ENTERIC TABLET PO (08:08)
[2022-04-15] MEDS: CALCIUM CARBONATE (OSCAL) 500 MG TABLET PO (08:08)
[2022-04-15] MEDS: polyethylene glycoL 3350 17 GM POWD.PACK PO (08:08)
[2022-04-15] MEDS: TAMSULOSIN HCL 0.4 MG CAPSULE PO (08:08)
[2022-04-15] MEDS: CITALOPRAM HYDROBROMIDE 20 MG TABLET PO (08:08)
[2022-04-15] MEDS: hydrALAZINE HCL 20 MG/ML VIAL 10 MG IV PUSH ×2 (08:11→21:50)
[2022-04-15 08:29] LABS: Glucose Point of Care 102 mg/dl (65-105)
[2022-04-15] MEDS: ENOXAPARIN 30 MG/0.3 ML SYRINGE SUB-Q (08:56)
--- NOTE | 2022-04-15 10:35 | PM.IMPN ---
Progress Note: A&P Assessment and Plan (1) Confusion: Code(s): R41.0 - Disorientation, unspecified Status: Acute Assessment and Plan: Patient had an episode of confusion prompting the following procedures to be performed on 04/09-: CT brain:?Stable mild nonspecific cerebral white matter disease, which likely represents chronic small vessel ischemic disease. Carotid US: <50% stenosis in the right internal carotid artery; Likely thrombosed vessel arising from the left common carotid artery, unclear whether this represents the ICA or ECA; Bidirectional flow in the right vertebral artery which suggests subcclav steal with high-grade stenosis of the right subclavian artery proximal to the takeoff of the right femoral artery. Soft tissue neck CT: Fat stranding in left neck anterolateral to the carotid bifurcation, likely scarring from carotid endarterectomy. Head/Neck CT: 45% right and 32% left ICA stenosis. 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 Severe stenosis to the left external carotid artery. No MRI because he has PM. Mental status was back to normal but then became more confused on 04/14. UA was negative. Was given Phenergan that morning which can cause hallucinations. Phenergan was stopped. ABG this morning showing 7.42/43/59 on room air (but 97% FiO2 on room air with the bipap). He is intermittently compliant (on BiPAP this morning for a short time). Compliance was encouraged. Discharge planning: Contact guard with bed mobility and bed transfer. Two days ago, able to walk 45 ft and 10 ft with walker but did require cues for safety.It appears he has been accepted at [facility]. Okay to discharge if insurance authorization completed. (2) Hypertensive urgency: Code(s): I16.0 - Hypertensive urgency Status: Acute Assessment and Plan: Patient presented with syncope resulting in a fall hitting his head on the ground. BP in the ER was 236/130 mm Hg. Patient also has a history of orthostatic hypotension on midodrine 10 mg TID and he may have taken additional doses of midodrine. Here, he required nicardipine infusion with target systolic blood pressures 160-180 mmHg. Midodrine stopped and low-dose Norvasc was started. Norvasc advanced to 2.5mg bid. Renal artery with possible bilateral stenosis. Able to wean off nicardipine. Orthostatics noted. Continue to monitor blood pressure closely. Consider CTA of the renal arteries but he does have CKD and plan would be to treat conservatively. Cardiology consulted and appreciate their input. Will need to tolerate elevated BP when supine since drops when standing. Continue Diallo hose. (3) Syncope: Code(s): R55 - Syncope and collapse Status: Acute Assessment and Plan: CT scan of the brain did not show any acute intracranial abnormality. Patient is on Eliquis at home which is on hold for now. Continue to monitor. PM was interrogated. Work-up otherwise as above. He is working with PT/OT. Still very orthostatic so feel that the risk of Eliquis outweighs the benefit. (4) Fall from ground level: Code(s): W18.30XA - Fall on same level, unspecified, initial encounter Status: Acute Assessment and Plan: As above (5) Orthostatic hypotension: Code(s): I95.1 - Orthostatic hypotension Status: Acute Assessment and Plan: Patient has history of orthostatic hypotension and was on midodrine 5 mg p.o. t.i.d. Midodrine curently on hold. Orthostatic as mentioned above. Monitor closely off this medication and now on Norvasc. Stop Flomax. Spoke with dtr and she was very concerned about the standing SBP 95. Explained about BP being a range and we are trying to keep his range reasonable at both ends. She continued to express concern so plan to have Cardiology re-consult. Spoke with cards by phone and they recommended low dose midodrine in the morning at 2.5mg
[2022-04-15 12:47] LABS: Glucose Point of Care 128 mg/dl (65-105)
[2022-04-15 17:07] LABS: Glucose Point of Care 108 mg/dl (65-105)
[2022-04-15 20:48] LABS: Glucose Point of Care 124 mg/dl (65-105)
[2022-04-15] MEDS: ATORVASTATIN 40 MG TABLET PO (21:43)
[2022-04-15] MEDS: FINASTERIDE 5 MG TABLET PO (21:43)
[2022-04-15] MEDS: INSULIN GLARGINE (*BKC) 100 UNITS/ML 15 UNITS SUB-Q (21:44)
[2022-04-16] VITALS (21 sets, daily range): BP systolic 102–171; BP diastolic 50–87; PULSE 61–80; RESP 14–20; TEMP 36.2–36.8; O2SAT 96–99; BMI 33.9
[2022-04-16 05:10] LABS: Hematocrit 38.7 % (42.0-52.0); Hemoglobin 12.4 g/dL (14.0-18.0); Mean Corpuscular Hemoglobin 31.5 pg (26-34); Mean Corpuscular Volume 98.2 fl (80-100); Mean Platelet Volume 10.9 fl (7.4-10.4); Platelet Count Result 186 k/mm3 (150-375); Red Blood Count 3.94 M/mm3 (4.6-6.20); Red Cell Distribution Width 13.6 % (11.5-14.5); White Blood Count 7.5 K/mm3 (4.5-10.0)
[2022-04-16 05:23] LABS: Albumin Level 3.2 g/dL (3.5-5.1); Anion Gap 3 mmol/L (8-16); Blood Urea Nitrogen 28 mg/dL (9-20); Calcium 8.6 mg/dL (8.4-10.2); Carbon Dioxide 28 mmol/L (22-30); Chloride 104 mmol/L (98-107); Estimated CRCL calculation 35 ml/min; Estimated Glomerular Filt Rate 41; Glucose 114 mg/dL (65-110); Phosphorus 3.9 mg/dL (2.5-4.5); Potassium 3.9 mmol/L (3.4-5.0); Sodium 135 mmol/L (137-145)
[2022-04-16] MEDS: LEVOTHYROXINE SODIUM 75 MCG TABLET PO (06:54)
[2022-04-16] MEDS: LEVOTHYROXINE SODIUM 100 MCG TABLET PO (06:54)
[2022-04-16 08:20] LABS: Glucose Point of Care 103 mg/dl (65-105)
[2022-04-16] MEDS: MIDODRINE HCL 2.5 MG TABLET PO (09:32)
[2022-04-16] MEDS: CALCIUM CARBONATE (OSCAL) 500 MG TABLET PO (09:32)
[2022-04-16] MEDS: ASPIRIN 81 MG ENTERIC TABLET PO (09:32)
[2022-04-16] MEDS: CITALOPRAM HYDROBROMIDE 20 MG TABLET PO (09:32)
[2022-04-16] MEDS: ENOXAPARIN 30 MG/0.3 ML SYRINGE SUB-Q (09:33)
[2022-04-16] MEDS: DONEPEZIL HCL 5 MG TABLET PO (09:33)
[2022-04-16] MEDS: polyethylene glycoL 3350 17 GM POWD.PACK PO (09:33)
--- NOTE | 2022-04-16 11:10 | PM.IMPN ---
Progress Note: A&P Assessment and Plan (1) Confusion: Code(s): R41.0 - Disorientation, unspecified Status: Acute Assessment and Plan: Patient had an episode of confusion prompting the following procedures to be performed on 04/09-: CT brain:?Stable mild nonspecific cerebral white matter disease, which likely represents chronic small vessel ischemic disease. Carotid US: <50% stenosis in the right internal carotid artery; Likely thrombosed vessel arising from the left common carotid artery, unclear whether this represents the ICA or ECA; Bidirectional flow in the right vertebral artery which suggests subcclav steal with high-grade stenosis of the right subclavian artery proximal to the takeoff of the right femoral artery. Soft tissue neck CT: Fat stranding in left neck anterolateral to the carotid bifurcation, likely scarring from carotid endarterectomy. Head/Neck CT: 45% right and 32% left ICA stenosis. 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 Severe stenosis to the left external carotid artery. No MRI because he has PM. Mental status was back to normal but then became more confused on 04/14. UA was negative. Was given Phenergan that morning which can cause hallucinations. Phenergan was stopped. ABG this morning showing 7.42/43/59 on room air (but 97% FiO2 on room air with the bipap). Mental status returned to baseline. (2) Hypertensive urgency: Code(s): I16.0 - Hypertensive urgency Status: Acute Assessment and Plan: Patient presented with syncope resulting in a fall hitting his head on the ground. BP in the ER was 236/130 mm Hg. Patient also has a history of orthostatic hypotension on midodrine and he may have taken additional doses of midodrine. Here, he required nicardipine infusion with target systolic blood pressures 160-180 mmHg. Midodrine stopped and low-dose Norvasc was started. Norvasc advanced to 2.5mg bid. Renal artery with possible bilateral stenosis. Able to wean off nicardipine. Orthostatics noted. Consider CTA of the renal arteries but he does have CKD and plan would be to treat conservatively. Cardiology consulted and appreciate their input. Continue Diallo loydae. Given the concerns that patient may be noncompliant with using the urinal at night, then the Norvasc may be problematic. Will stop Norvasc and monitor. Give Midodrine before he rises in the morning. (3) Syncope: Code(s): R55 - Syncope and collapse Status: Acute Assessment and Plan: CT scan of the brain did not show any acute intracranial abnormality. Patient is on Eliquis at home which is on hold for now. Continue to monitor. PM was interrogated. Work-up otherwise as above. He is working with PT/OT. Still very orthostatic so feel that the risk of Eliquis outweighs the benefit. (4) Fall from ground level: Code(s): W18.30XA - Fall on same level, unspecified, initial encounter Status: Acute Assessment and Plan: As above (5) Orthostatic hypotension: Code(s): I95.1 - Orthostatic hypotension Status: Acute Assessment and Plan: Patient has history of orthostatic hypotension and was on midodrine 5 mg p.o. t.i.d. Midodrine curently on hold. Orthostatic as mentioned above. Monitor closely off this medication and now on Norvasc. Flomax stopped. Dtr will speak with the patient's Musical Instrument Mechanic to discuss if/when to resume Eliquis. Spoke with dtr again and she again was very concerned about the standing SBP. Long discussion but given the concern that patient will be unable to void in a urinal and that he is a fall risk at night, will stop Norvasc and monitor overnight. Dtr understand the risks of elevated blood pressure. (6) Insulin dependent type 2 diabetes mellitus: Code(s): E11.9 - Type 2 diabetes mellitus without complications; Z79.4 - counseling services director (current) use of insulin Status: Acute
[2022-04-16 11:54] LABS: Glucose Point of Care 203 mg/dl (65-105)
[2022-04-16] MEDS: INSULIN ASPART (*BKC) 100 UNITS/ML SUB-Q (12:39)
--- NOTE | 2022-04-16 14:38 | PCNSR ---
On 04/16/22, the student, Masood Vazquez, provided care and completed [facility] documentation on this patient. I have reviewed the student's documentation and agree with the findings.
[2022-04-16 17:01] LABS: Glucose Point of Care 132 mg/dl (65-105)
[2022-04-16 19:44] LABS: Glucose Point of Care 219 mg/dl (65-105)
[2022-04-16] MEDS: FINASTERIDE 5 MG TABLET PO (20:45)
[2022-04-16] MEDS: ATORVASTATIN 40 MG TABLET PO (20:45)
[2022-04-16] MEDS: INSULIN GLARGINE (*BKC) 100 UNITS/ML 15 UNITS SUB-Q (20:49)
[2022-04-17] VITALS (12 sets, daily range): BP systolic 146–197; BP diastolic 54–82; PULSE 60–78; RESP 14–25; TEMP 36.4–37; O2SAT 95–100
[2022-04-17] MEDS: LEVOTHYROXINE SODIUM 75 MCG TABLET PO (06:31)
[2022-04-17] MEDS: LEVOTHYROXINE SODIUM 100 MCG TABLET PO (06:31)
[2022-04-17 07:33] LABS: Glucose Point of Care 120 mg/dl (65-105)
[2022-04-17] MEDS: CALCIUM CARBONATE (OSCAL) 500 MG TABLET PO (08:10)
[2022-04-17] MEDS: ASPIRIN 81 MG ENTERIC TABLET PO (08:10)
[2022-04-17] MEDS: CITALOPRAM HYDROBROMIDE 20 MG TABLET PO (08:10)
[2022-04-17] MEDS: DONEPEZIL HCL 5 MG TABLET PO (08:10)
[2022-04-17] MEDS: MIDODRINE HCL 2.5 MG TABLET PO (08:10)
[2022-04-17] MEDS: polyethylene glycoL 3350 17 GM POWD.PACK PO (08:12)
[2022-04-17] MEDS: ENOXAPARIN 30 MG/0.3 ML SYRINGE SUB-Q (08:12)
--- NOTE | 2022-04-17 10:43 | PM.DS ---
DS: Admitting Diagnosis Discharge Date 04/17/22 Admitting Diagnosis Possible syncope DS: Discharge Diagnosis Discharge Diagnosis (1) Confusion: Code(s): R41.0 - Disorientation, unspecified Status: Acute (2) Hypertensive urgency: Code(s): I16.0 - Hypertensive urgency Status: Acute (3) Syncope: Code(s): R55 - Syncope and collapse Status: Acute (4) Fall from ground level: Code(s): W18.30XA - Fall on same level, unspecified, initial encounter Status: Acute (5) Orthostatic hypotension: Code(s): I95.1 - Orthostatic hypotension Status: Acute (6) Insulin dependent type 2 diabetes mellitus: Code(s): E11.9 - Type 2 diabetes mellitus without complications; Z79.4 - retirement (current) use of insulin Status: Acute (7) Obstructive sleep apnea on CPAP: Code(s): G47.33 - Obstructive sleep apnea (adult) (pediatric); Z99.89 - Dependence on other enabling machines and devices Status: Acute (8) Chronic anticoagulation: Code(s): Z79.01 - retirement (current) use of anticoagulants Status: Acute (9) Chronic kidney disease, stage 3: Code(s): N18.30 - Chronic kidney disease, stage 3 unspecified Status: Acute DS: Summary Hospital Course Reason for hospitalization: 86yo male with?DM, orthostatic hypotension resulting in falls on midodrine, h/o HTN not on meds, CAD, carotid disease, CKD, and ANTON presented to the ED on 04/09/22 for evaluation for a fall and possible syncope. Pt was found to have a SBP of 236/130 on admission. Per records patient did complain headache, blurring vision, nausea and dry heaves.?Please see H&P for details Hospital Course: Patient had an episode of confusion prompting the following procedures to be performed on : CT brain:?Stable mild nonspecific cerebral white matter disease, which likely represents chronic small vessel ischemic disease. Carotid US: <50% stenosis in the right internal carotid artery; Likely thrombosed vessel arising from the left common carotid artery, unclear whether this represents the ICA or ECA; Bidirectional flow in the right vertebral artery which suggests subcclav steal with high-grade stenosis of the right subclavian artery proximal to the takeoff of the right femoral artery. Soft tissue neck CT:? Fat stranding in left neck anterolateral to the carotid bifurcation, likely scarring from carotid endarterectomy. Head/Neck CT: 45% right and 32% left ICA stenosis. 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 Severe stenosis to the left external carotid artery. No MRI because he has PM. Mental status returned to normal but then became more confused on 04/14.? UA was negative. Was given Phenergan that morning which can cause hallucinations. Phenergan was stopped. Mental status again returned to baseline. Patient presented with syncope resulting in a fall hitting his head on the ground. BP in the ER was 236/130 mm Hg. Patient also has a history of orthostatic hypotension on midodrine and he may have taken additional doses of midodrine. Here, he required nicardipine infusion and admitted to the ICU. Midodrine stopped and low-dose Norvasc was started. Norvasc advanced to 2.5mg bid. Renal artery with possible bilateral stenosis. Able to wean off nicardipine. Consider CTA of the renal arteries but he does have CKD and plan would be to treat conservatively. Cardiology consulted and appreciate their input. Spoke with daughter who was concerned about a potential low BP at night so medications adjusted to Midodrine 2.5mg in the morning and off Norvasc. Flomax stopped. Orthostatic vitals stable. Given his risk of falls and that his HAS-BLED score of 4 (high risk), we held his Eliquis. No plans to resume but Dtr will speak with the patient's Supervisor Vacuum Metalizing to discuss if/when to resume Eliquis. He overall did well and was discharged to SNF on
[2022-04-17 11:56] LABS: EDCOVIDSCREEN Negative (Negative)
--- NOTE | 2022-04-17 13:26 | PC.NURSE ---
pt discharged to [facility] via w/c- Reese from [facility] to transport pt via w/c via van- report was given to Christie RN- belongings with pt and appropriate documentation with pt
== END 2022-04-17 13:24 | DRG 305 ==
LOC: ANHED 17:11 → ANH2MED 17:42 → ANHICU 20:06 → ANHIMU 04-13 22:38
PROVIDERS: Internal Medicine; Physician Assistant; Admitting Provider Internal Medicine; Emergency Provider Emergency Medicine; PCP Family Medicine; Visit Provider Internal Medicine
DX: I16.0 Hypertensive urgency (principal); G45.8 Other transient cerebral ischemic attacks and related syndromes; I95.1 Orthostatic hypotension; E11.22 Type 2 diabetes mellitus with diabetic chronic kidney disease; E11.43 Type 2 diabetes mellitus with diabetic autonomic (poly)neuropathy; E04.1 Nontoxic single thyroid nodule; G47.33 Obstructive sleep apnea (adult) (pediatric); I25.10 Atherosclerotic heart disease of native coronary artery without angina pectoris; I12.9 Hypertensive chronic kidney disease with stage 1 through stage 4 chronic kidney disease, or unspecified chronic kidney disease; I70.1 Atherosclerosis of renal artery; N18.30 Chronic kidney disease, stage 3 unspecified; R41.0 Disorientation, unspecified; E03.9 Hypothyroidism, unspecified; E78.5 Hyperlipidemia, unspecified; N40.0 Benign prostatic hyperplasia without lower urinary tract symptoms; R47.81 Slurred speech; T42.6X5A Adverse effect of other antiepileptic and sedative-hypnotic drugs, initial encounter; R29.6 Repeated falls; W18.30XA Fall on same level, unspecified, initial encounter; Z20.822 Contact with and (suspected) exposure to COVID-19; Z91.81 History of falling; Z77.090 Contact with and (suspected) exposure to asbestos; Z79.4 Long term (current) use of insulin; Z79.01 Long term (current) use of anticoagulants; Z79.82 Long term (current) use of aspirin; Z88.0 Allergy status to penicillin; Z86.718 Personal history of other venous thrombosis and embolism; Z99.89 Dependence on other enabling machines and devices; Z98.49 Cataract extraction status, unspecified eye; Z95.1 Presence of aortocoronary bypass graft; Z90.89 Acquired absence of other organs; Z95.0 Presence of cardiac pacemaker; Z96.651 Presence of right artificial knee joint; Z87.891 Personal history of nicotine dependence; Z91.14 Patient's other noncompliance with medication regimen
CPT/HCPCS: 36415; 36600; 70450; 70490; 70496; 70498; 71046; 72125; 73130; 74177; 80048; 80053; 80069; 81001; 82805; 82948; 83036; 83735; 84100; 84443; 84484; 85025; 85027; 87426; 93005; 93880; 93976; 94660; 96365; 97110; 97161; 97165; 97530; 97535; 99285; A9270; C8929; C9803; J0360; J1650; J1815; J3475; J7030; Q9957; Q9967